=== PATIENT | female | born 2000 | race Caucasian/White ===

== ENCOUNTER 2022-03-15 16:03 | Emergency (ER) | payer MEDICAID, SELFPAY ==
[2022-03-15 16:33] VITALS: BP 107/50; PULSE 85; RESP 16; TEMP 36.8; O2SAT 98; BMI 20.9
--- NOTE | 2022-03-15 17:16 | ED.SKABFB ---
HPI - Skin/Abscess/Foreign Bdy General Chief complaint: Skin/Abscess/Foreign Body Stated complaint: lump on thumb Time Seen by Provider: 03/15/22 16:48 Source: patient Mode of arrival: ambulatory History of Present Illness HPI narrative: 21-year-old female with no significant past medical history presenting to the ED complaining of painful erythematous lesions to right thumb x a few days. Admits mother popped a lesion at home then 2 more appeared. Denies fever, chills, lesions to other area, trauma MD complaint: lesion Onset (ago): day(s) Related Data Previous Rx's Medication Instructions Recorded cephalexin 500 mg capsule 500 mg PO QID 7 Days #28 cap 03/15/22 valacyclovir 1 gram tablet 1,000 mg PO BID 7 Days #14 tab 03/15/22 (Valtrex) Allergies Allergy/AdvReac Type Severity Reaction Status Date / Time No Known Allergies Allergy Verified 03/15/22 16:36 Review of Systems Review of Systems: Constitutional: No Weight loss, No Fever, No Chills ENT/Mouth: No Ear Pain, No Nasal Congestion, No sore throat, No Rhinorrhea, No Swallowing Difficulty Cardiovascular: No Chest Pain, No SOB Respiratory: No Cough, No Sputum, No Wheezing Gastrointestinal: No Nausea, No Vomiting, No Diarrhea, No Constipation, No Abdominal pain Genitourinary: No Dysuria, No Urgency, No Flank Pain Musculoskeletal: No joint pain, No Myalgias, No Joint Swelling Skin: + Skin Lesions, No rash Neuro: No Weakness, No Numbness, No Paresthesias Yes all other systems are reviewed and are negative [facility] Past Medical History Attestation statement: The following information was validated with the patient. Social History Social History Advance Directives: No Advance Directives Information Provided: No Physical Exam Vital Signs: Vital Signs: Last Vital Signs Temp 98.3 F 03/15/22 16:33 Pulse 85 03/15/22 16:33 Resp 16 03/15/22 16:33 BP 107/50 L 03/15/22 16:33 Pulse Ox 98 03/15/22 16:33 BMI result Body Mass Index 20.9 Const: General: cooperative, healthy appearing and no acute distress Orientation/consciousness: patient oriented x3 Limitations: no limitations HEENT: Head: Yes normal to inspection and Yes atraumatic Ears: hearing grossly normal bilaterally General nose exam: Normal external nose present Face and sinus: Yes normal facial exam Eyes: General: appearance normal, both eyes and all related structures EOM: EOMs intact bilaterally Neck: Neck: Yes normal visual inspection and Yes no meningeal signs Resp: Effort & Inspection: normal respiratory effort and no respiratory distress Cardio: Rate: regular rate Peripheral pulses: radial pulses present Skin: Other: Please refer to imaging above. Three small fluid-filled vesicles noted to right thumb with surrounding erythema. Painful to touch. Neurovascular intact distally. Full range of motion intact. No induration, no crepitus Clear fluid expressed after one vesicle popped for culture Neuro: General: patient oriented x3, tone normal and no meningeal signs Gait exam (Neuro): Normal gait present Extrem: General: Yes normal to inspection MDM - Skin/Abscess/Foreign Bdy MDM Narrative Medical decision making narrative: 21-year-old female with no significant past medical history presenting to the ED complaining of painful erythematous lesions to right thumb x a few days. On exam vital signs stable, NAD/nontoxic appearing. Please refer to images above. Concern for herpetic mian with overlying cellulitits. Lower concern for abscess. Low concern for septic joint/arthritis Plan: Herpes culture, Keflex and Valtrex Medical Records Attestation: I reviewed the patient's medical records. Lab Data Attestation: I reviewed the patient's lab results. Discharge Plan Discharge Clinical Impression: Herpetic mian Patient Disposition: Home, Self-Care Additional Instructions: you likely have herpetic mian, and also an overlying infection, and also an overlying infection. Valtrex as antiviral medication, take as prescribed. Keflex as an antibiotic. Please avoid popping the area as this will likely cause spreading. If this red severely, you develop fever, lesions in other areas please return to the ED Prescriptions: New cephalexin 500 mg capsule 500 mg PO QID 7 Days Qty: 28 0RF valacyclovir [Valtrex] 1 gram tablet 1,000 mg PO BID 7 Days Qty: 14 0RF Referrals: Agustina Luo MD [Primary Care Provider] - 3 days
== END 2022-03-15 17:46 | disposition home or self-care (01) ==
PROVIDERS: Physician Assistant; Emergency Provider Emergency Medicine; PCP Pediatrics
DX: B00.89 Other herpesviral infection (principal)
CPT/HCPCS: 87255; 99283; 99284

== ENCOUNTER 2022-05-31 06:53 | Emergency (ER) | payer MEDICAID, SELFPAY ==
--- NOTE | ~2022-05-31 | XR_ITS ---
EXAMINATION: XR HAND, RIGHT CLINICAL INFORMATION: Right thumb pain, no injury COMPARISON: None TECHNIQUE: PA, lateral, and oblique views of the right hand. FINDINGS: The bones and soft tissues are normal. No fracture. Alignment is anatomic. Joint spaces are maintained. No erosions or soft tissue calcifications. XR/XR hand RT min 3V IMPRESSION: Normal right hand.
[2022-05-31 08:28] VITALS: BP 99/60; PULSE 82; RESP 12; TEMP 36.4; O2SAT 99; BMI 21.7
--- NOTE | 2022-05-31 09:23 | ED_ITS ---
HPI - Extremity Problem General Chief complaint: Extremity Problem Stated complaint: R thumb inj Time Seen by Provider: 05/31/22 08:37 Source: patient Mode of arrival: ambulatory Limitations: no limitations History of Present Illness HPI Narrative: 20-year-old female presents for 3 days of right thumb rash and pain. Pain is burning and feels like she is being poked with a needle. Patient was seen here in March 2022 for herpetic mian in the same area. 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 No fevers, no other symptoms, she feels well at baseline aside from the right thumb pain. No trauma, no injury. Related Data Previous Rx's Medication Instructions Recorded cephalexin 500 mg capsule 500 mg PO QID 7 days #28 caps 03/15/22 valacyclovir 1 gram tablet 1,000 mg PO BID 7 days #14 tabs 03/15/22 (Valtrex) cephalexin 500 mg capsule 500 mg PO QID 7 days #28 caps 05/31/22 ibuprofen 600 mg tablet 600 mg PO Q8H 14 days #42 tabs 05/31/22 valacyclovir 1 gram tablet 1,000 mg PO BID 7 days #14 tabs 05/31/22 Allergies Allergy/AdvReac Type Severity Reaction Status Date / Time No Known Allergies Allergy Verified 03/15/22 16:36 Review of Systems Constitutional: Constitutional: Denies body ache(s), Denies chills, Denies fatigue, Denies fever(s), Denies malaise and Denies weakness Eyes: Eyes: Denies diplopia Cardiovascular: Cardiovascular: Denies chest pain, Denies syncope, Denies leg edema, Denies lightheadedness, Denies Loss of Consciousness, Denies palpitations and Denies dyspnea Respiratory: Respiratory: Denies chest congestion, Denies cough and Denies dyspnea Gastrointestinal: Gastrointestinal: Denies abdominal pain, Denies hematochezia , Denies constipation, Denies diarrhea, Denies nausea and Denies vomiting Musculoskeletal: Musculoskeletal: Denies numbness and Denies tingling Comments: Right thumb pain Integumentary/Breasts: Skin/Breast: Denies pruritus, Reports rash and Reports skin pain Neurologic: Denies confusion, Denies syncope, Denies numbness, Denies tingling and Denies weakness Psychiatric: Psychiatric: Denies anxiety, Denies confusion and Denies depression Endocrine: Endocrine: Denies fatigue and Denies palpitations PMFSH Social History Social History Advance Directives: No Advance Directives Information Provided: Yes Physical Exam Vital Signs: Vital Signs: Last Vital Signs Temp 97.5 F 05/31/22 08:28 Pulse 82 05/31/22 08:28 Resp 12 05/31/22 08:28 BP 99/60 05/31/22 08:28 Pulse Ox 99 05/31/22 08:28 O2 Del Method 05/31/22 08:28 BMI result Body Mass Index 21.7 Const: General: No confusion Nutritional Appearance: well nourished Orientation/consciousness: No confusion Limitations: no limitations Eyes: Conjunctivae: conjunctivae normal Pupils: Equal, round and reactive pupils present EOM: EOMs intact bilaterally Neck: Neck: Yes full ROM, Yes no lymphadenopathy and Yes supple Resp: Effort & Inspection: normal respiratory effort and able to speak in co mplete sentences Auscultation: clear to auscultation bilaterally, no crac kles, no rales, no rhonchi and no wheezes Cardio: Rate: regular rate Rhythm: regular rhythm Heart sounds: S1 normal heart sound present and S2 normal heart sound present GI: Inspection: Yes normal to inspection Palpation (GI): Soft to palpation, nontender, no guarding and not rigid Percussion: Yes normal to percussion Auscultation: normal bowel sounds Skin: Other: vascicular rash to right thumb Rashes: rashes noted Neuro: General: No confusion Cranial nerves: Yes Equal, round and reactive pupils present Extrem: Right upper extremity: full ROM, normal capillary refill and Extremity exam: right hand Details: normal capillary refill, neuromotor exam normal, neurosensory exam normal, tendon exam normal, vascular exam Details: radial pulse present, ulnar pulse present and normal capillary refill, normal ROM of fingers and no swelling; no unusual warmth, no ecchymosis and no crepitus; no cyanosis and no edema Psych: Appearance: grossly normal Affect: normal affect Attitude: cooperative Thought process: Normal thought process present Course Course Course Narrative: 89-year-old female presents with 3 days of right thumb pain. Patient has intact right upper extremity pulses, sensation, motor strength. She can move all of her fingers, patient tested positive for herpes and was diagnosed with herpetic mian 4 months ago. She had an outbreak of herpes on her thumb at that time as well. Will treat with valacyclovir, Keflex, ibuprofen. Counseled patient to follow- up with primary care provider, as they may want to prescribe some Valtrex at the onset of symptoms. Patient verbalized agreement understanding of the plan Reevaluation(s) Reevaluation #1: FINDINGS: The bones and soft tissues are normal. No fracture. Alignment is anatomic. Joint spaces are maintained. No erosions or soft tissue calcifications.? XR/XR hand RT min 3V IMPRESSION: Normal right hand. Discharge Plan Discharge Clinical Impression: Recurrent herpetic mian Patient Disposition: Home, Self-Care Additional Instructions: You have a herpes infection of your right finger. I have prescribed an antibiotic, and antiviral, and ibuprofen for pain. Please take all 3 as prescribed. Please return if you have fevers, or any other new or concerning symptoms. Please call your primary care provider for follow-up appointment from today's emergency room visit, they may be able to prescribe a medication that will stop the herpes infection in your finger from getting worse when it 1st occurs Prescriptions: New valacyclovir 1 gram tablet 1,000 mg PO BID 7 Days Qty: 14 0RF cephalexin 500 mg capsule 500 mg PO QID 7 Days Qty: 28 0RF ibuprofen 600 mg tablet 600 mg PO Q8H 14 Days Qty: 42 0RF No Action cephalexin 500 mg capsule 500 mg PO QID 7 Days Qty: 28 0RF valacyclovir [Valtrex] 1 gram tablet 1,000 mg PO BID 7 Days Qty: 14 0RF Stand Alone Forms: Work/School Release Interventions: ED Discharge Assessment Last Done: 05/31/22 10:23 Discharge Date/Time: 05/31/22 10:24
== END 2022-05-31 10:24 | disposition home or self-care (01) ==
PROVIDERS: Emergency Provider Emergency Medicine; PCP Pediatrics
DX: B00.89 Other herpesviral infection (principal); M79.641 Pain in right hand
CPT/HCPCS: 73130; 99283

== ENCOUNTER 2023-07-11 12:32 | Outpatient (REF) | payer MEDICAID, SELFPAY ==
[2023-07-12 08:19] LABS: ~Hepatitis C Antibody Nonreactive (Nonreactive)
[2023-07-13 08:26] LABS: Syphilis Screen Nonreactive (Nonreactive)
== END 2023-07-11 12:33 | disposition home or self-care (01) ==
LOC: HO.HHCL 12:32
PROVIDERS: Visit Provider Nurse Practitioner Family
DX: Z11.3 Encounter for screening for infections with a predominantly sexual mode of transmission (principal)
CPT/HCPCS: 36415; 86780; 86803

== ENCOUNTER 2023-08-13 17:38 | Outpatient (REF) | payer MEDICAID, SELFPAY ==
[2023-08-14 11:51] LABS: CT PCR NOT DETECTED (Not Detect.); NG PCR NOT DETECTED (Not Detect.)
[2023-08-14 12:08] LABS: BV Int Neg Control Negative (Negative); BV Int Pos Control Positive (Positive)
== END 2023-08-13 17:39 | disposition home or self-care (01) ==
LOC: HO.HHCLNP 17:38
PROVIDERS: Visit Provider Emergency Medicine
DX: N89.8 Other specified noninflammatory disorders of vagina (principal)
CPT/HCPCS: 0353U; 87086; 87088; 87186; 87480; 87510; 87660

== ENCOUNTER 2023-08-17 17:37 | Outpatient (REF) | payer MEDICAID, SELFPAY | END 2023-08-17 17:38 | disposition home or self-care (01) | LOC: HO.HHCLNP 17:37 | PROVIDERS: Visit Provider Student in an Organized Health Care Education/Training Program | DX: N89.8 Other specified noninflammatory disorders of vagina (principal) | CPT/HCPCS: 0353U; 87480; 87510; 87660 ==

== ENCOUNTER 2023-10-24 18:57 | Outpatient (REF) | payer MEDICAID, SELFPAY ==
[2023-10-25 02:27] LABS: CT PCR NOT DETECTED (Not Detect.); NG PCR NOT DETECTED (Not Detect.)
== END 2023-10-24 18:58 | disposition home or self-care (01) ==
LOC: HO.HHCLNP 18:57
PROVIDERS: Visit Provider Nurse Practitioner Family
DX: N89.8 Other specified noninflammatory disorders of vagina (principal)
CPT/HCPCS: 0353U

== ENCOUNTER 2023-11-29 11:46 | Outpatient (REF) | payer MEDICAID, SELFPAY ==
[2023-11-29 13:29] LABS: Hematocrit 37.5 % (37.0-47.0); Hemoglobin 12.1 g/dl (12.0-16.0); Mean Corpuscular HGB Conc 32.3 g/dl (31.0-35.0); Mean Corpuscular Hemoglobin 28.1 pg (27.0-33.0); Mean Platelet Volume 9.7 fL (9.4-12.3); Platelet Count 312 X10*3/uL (160-400); Red Blood Count 4.31 X10*6/uL (4.20-5.50); Red Cell Distribution Width 12.2 % (11.0-16.0); White Blood Count 9.6 X10*3/uL (4.8-10.8)
[2023-11-29 13:50] LABS: Alanine Aminotransferase 12 U/L (0-31); Albumin Level 4.7 g/dL (3.5-5.0); Alkaline Phosphatase 69 U/L (39-117); Anion Gap 13 (12-20); Aspartate Amino Transferase 19 U/L (5-31); Bilirubin Total 0.9 mg/dL (0.0-1.0); Blood Urea Nitrogen 10 mg/dL (9-16); Calcium 10.2 mg/dL (8.4-10.2); Carbon Dioxide 26 mmol/L (22-29); Chloride 102 mmol/L (96-108); Cholesterol 133 mg/dL (<200); Estimated Glomerular Filt Rate > 60; Glucose Random 104 mg/dL (60-115); HDL Cholesterol 49 mg/dL (>40); LDL Cholesterol Calculated 71 mg/dL (<100); Potassium 3.8 mmol/L (3.3-5.1); Sodium 137 mmol/L (135-145); Total Protein 8.6 g/dL (6.5-8.0); Triglycerides 68 mg/dL (<150)
[2023-11-29 13:57] LABS: Estimated Average Glucose 94 mg/dL; Hemoglobin A1c % 4.9 % (<6.0)
[2023-11-29 14:06] LABS: TSH reflex Free T4 0.64 uIU/mL (0.32-4.0)
[2023-11-30 03:35] LABS: Syphilis Screen Nonreactive (Nonreactive)
[2023-11-30 04:08] LABS: HBc Num1 0.11 S/CO (0.00-0.79); HBsAGNum1 0.32 S/CO (0.00-0.99); HIV AB/AG Nonreactive (Nonreactive); HIV Num 1 0.06 S/CO (0.00-0.99); Hepatitis B Core Antibody Nonreactive (Nonreactive); Hepatitis B Surface Antigen Negative (Negative); ~HepC Num1 0.14 S/CO (0.00-0.79); ~Hepatitis B Surface Antibody REACTIVE (Nonreactive); ~Hepatitis C Antibody Nonreactive (Nonreactive)
[2023-11-30 14:39] LABS: C. trachomatis RNA TMA NOT DETECTED (NOT DETECTED); N. gonorrhoeae RNA TMA NOT DETECTED (NOT DETECTED)
== END 2023-11-29 11:47 | disposition home or self-care (01) ==
LOC: HO.HHCL 11:46
PROVIDERS: Visit Provider Student in an Organized Health Care Education/Training Program
DX: Z00.00 Encounter for general adult medical examination without abnormal findings (principal); Z11.4 Encounter for screening for human immunodeficiency virus [HIV]; N76.0 Acute vaginitis; B96.89 Other specified bacterial agents as the cause of diseases classified elsewhere
CPT/HCPCS: 36415; 80053; 80061; 81513; 83036; 84443; 85027; 86704; 86706; 86780; 86803; 87340; 87389; 87491; 87591

== ENCOUNTER 2023-12-01 15:18 | Emergency (ER) | payer MEDICAID, SELFPAY ==
--- NOTE | ~2023-12-01 | CT_ITS ---
EXAMINATION: CT ABDOMEN AND PELVIS WITH CONTRAST CLINICAL INFORMATION: Nausea, vomiting and diffuse abdominal tenderness COMPARISON: None available. TECHNIQUE: Multidetector volumetric images were obtained from the superior aspect of the liver through the pubic symphysis following administration 85 mL of Omnipaque 350 intravenous contrast. Sagittal and coronal reformatted images were obtained on the technologist's workstation. Oral contrast: No This CT examination was performed using dose optimization techniques as appropriate, variously including the following: *Automated exposure control *Adjustment of mA and/or kV according to patient size (this includes techniques or standardized protocols for targeted exams where dose is matched to indication/reason for exam; i.e. extremities or head) *Use of iterative reconstruction technique DLP: 295 mGy-cm FINDINGS: LUNG BASES: The visualized lung bases are unremarkable. LIVER, GALLBLADDER, AND BILIARY TREE: The liver is enlarged at 19 cm in cephalocaudad dimension. No focal hepatic lesion or biliary ductal dilatation is present. The gallbladder is unremarkable with no evidence of radiopaque gallstones, gallbladder wall thickening, or obvious pericholecystic inflammatory changes. PANCREAS: Unremarkable. SPLEEN: Unremarkable. ADRENAL GLANDS: Unremarkable. KIDNEYS AND URETERS: The right kidney is larger than the left measuring 11.4 as opposed to 10.2 cm. In addition, there is marked heterogeneity of the nephrogram with areas of hypoattenuation consistent with acute bacterial nephritis. No nephrocalcinosis. No renal calculi. No hydronephrosis, hydroureter, or calculi seen. No perinephric stranding. BLADDER: Empty but unremarkable. GASTROINTESTINAL TRACT: The small and large bowel are unremarkable. The appendix is unremarkable. ABDOMINAL WALL: No significant hernia is appreciated. LYMPH NODES: Normal. VASCULAR: Unremarkable. PELVIC VISCERA: The uterus and adnexa are unremarkable. OSSEOUS STRUCTURES: Unremarkable. CT/CT abdomen pelvis w IV con IMPRESSION: 1. Acute bacterial nephritis right kidney. 2. Incidental note made of mild hepatomegaly. Fleischner guidelines were followed. This critical result was discussed with RADHA Steel at 6:24pm and it was ascertained that the content and urgency of the report was understood at the time of direct communication.
[2023-12-01 15:30] VITALS: BP 128/81; PULSE 95; RESP 18; TEMP 36.6; O2SAT 100; BMI 21.2
--- NOTE | 2023-12-01 15:30 | ED.GENADULT ---
HPI - General Adult General Chief complaint: General Medical Stated complaint: vomiting,shaking Time Seen by Provider: 12/01/23 15:40 Source: patient Mode of arrival: ambulatory Limitations: no limitations History of Present Illness HPI narrative: patient is a 23-year-old female who presents emergency department for evaluation of reported cold sweats, chills, nausea and vomiting for 5 days. She does endorse that approximately 3 weeks ago she tested positive for COVID - 19, and afterwards she decided that she would stop smoking marijuana. She reports that she quit 5 days ago as well, the same day that her symptoms started. and since then she has been feeling shaky, and states that she is vomiting every time after she eats. She expresses concern about withdrawal from marijuana. She denies Abdominal pain, chest pain, shortness of breath, URI symptoms, genitourinary symptoms, denies possibility of , denies any recent sick contacts. Related Data Previous Rx's Medication Instructions Recorded cephalexin 500 mg capsule 500 mg PO QID 7 days #28 caps 03/15/22 valacyclovir 1 gram tablet 1,000 mg PO BID 7 days #14 tabs 03/15/22 (Valtrex) cephalexin 500 mg capsule 500 mg PO QID 7 days #28 caps 05/31/22 ibuprofen 600 mg tablet 600 mg PO Q8H 14 days #42 tabs 05/31/22 valacyclovir 1 gram tablet 1,000 mg PO BID 7 days #14 tabs 05/31/22 ciprofloxacin HCl 500 mg tablet 500 mg PO BID #14 tabs 12/01/23 ondansetron 4 mg disintegrating 4 mg PO Q8H PRN nausea and 12/01/23 tablet vomiting #10 tabs Allergies Allergy/AdvReac Type Severity Reaction Status Date / Time No Known Allergies Allergy Verified 08/28/23 12:26 [facility] Social History Social History (System 08/28/23 @ 12:26 by Unique Ricks) Advance Directives: No Advance Directives Information Provided: No Physical Exam ED Vital Signs: Vital Signs - 24 hr 12/01/23 15:30 12/01/23 16:41 Temperature 97.8 F 98 F Pulse Rate 95 90 Respiratory Rate 18 19 Blood Pressure 128/81 126/78 Pulse Oximetry 100 99 Oxygen Delivery Method Room Air Room Air BMI result Body Mass Index 21.2 Appearance: Alert.?Oriented to person, place and time. No acute distress.?Normal affect. Eyes: Pupils equal, round and reactive to light.? ENT: Pharynx normal.?? Neck: Normal inspection.? Neck supple.?? CVS: Heart sounds normal. Normal heart rate and rhythm.? Pulses normal.?? Respiratory: No respiratory distress.? Lung sounds clear to auscultation bilaterally?? Abdomen: Soft with diffuse tenderness upon palpation, no rigidity, no guarding. Normoactive bowel sounds. No pulsatile mass.?? Skin: Skin warm and dry.? Normal skin color.? Extremities: No lower extremity edema.? Neuro: Moves all extremities spontaneously. Sensation intact bilaterally. No focal neuro deficits. Ambulates with normal steady gait. Course Course Course Narrative: This is a rapid medical exam: Additional HPI, ROS, PE not included below will be deferred to primary provider. Patient is a 23-year-old female presenting to the ED with complaint of sweats, chills, vomiting for 5 days. Reports ten pound weight loss. States that she tested positive for Covid 3 weeks ago, and decided at that time to stop using marijuana. Feels her symptoms are due to withdrawal from marijuana. Plan: viral swabs, UA, labs Reevaluation(s) Reevaluation #1: urinalysis consistent urinary tract infection, Patient received Rocephin IV while in the emergency department, CT reveals findings consistent with acute pyelonephritis, consulted with radiologist Dr. Summers who called with results. No evidence of sepsis. No persistent fever, at this time she is tolerating oral intake, feel that she is stable for discharge home and strict return precautions and sent prescription for antibiotics to pharmacy. Time: 18:26 Medications Administered Discontinued Medications Generic Name Dose Route Start Last Admin Trade Name Freq PRN Reason Stop Dose Admin Sodium Chloride 1,000 mls @ 999 mls/hr 12/01/23 16:45 12/01/23 18:31 Ns IV 12/01/23 17:45 Infused .Q1H1M NICK Infusion Ceftriaxone Sodium 1 gm/ 50 mls @ 100 mls/hr 12/01/23 17:29 12/01/23 18:31 Sodium Chloride IV 12/01/23 17:58 Infused ONCE ONE Infusion Iohexol 100 ml 12/01/23 17:32 12/01/23 17:32 Iohexol 350 Mg/Ml 100 Ml Infus..Btl IV 12/01/23 17:33 85 ml ONCE ONE Administration Ondansetron HCl 4 mg 12/01/23 16:37 12/01/23 17:01 Ondansetron Hcl 4 Mg/2 Ml Vial IVPUSH 12/01/23 16:38 4 mg ONCE ONE Administration Medical Decision Making Medical Decision Making [facility] Narrative: patient is a 23-year-old female who presents emergency department for evaluation of nausea vomiting chills and shakiness that she is attributing to withdrawal from marijuana. Overall she appears well, she reports diffuse body aches, her abdominal examination reveals diffuse tenderness upon palpation, no rigidity, no guarding, no rebound tenderness. No CVA tendern. Will obtain CBC to evaluate for leukocytosis/ anemia, CMP and lipase to evaluate for abnormal electrolytes /abnormal renal function/ abnormal hepatic/biliary function, and Urinalysis /hCG. Patient received 1 L normal saline IV fluid, Zofran IV for nausea and plan to re-evaluate. Differential Diagnosis Differential Diagnoses: The differential diagnosis associated with the presentation includes ( Gastroenteritis, urinary tract infection, pyelonephritis, viral illness. Suspect less likely cholecystitis, pancreatitis, colitis, obstruction, diverticulitis, appendicitis.) Admission/Observation Consideration of admission/observation: Escalation of care including admission/observation considered ( See narrative above and course narrative for further detail) Lab Data [facility] Lab Attestation statement: I reviewed the patient's lab results. CBC is without leukocytosis. CMP is unremarkable. Lipase is normal. HCG negative. COVID and influenza are negative. 12/01/23 15:39 12/01/23 15:39 Labs: Lab Results 12/01/23 12/01/23 12/01/23 Range/Units 15:39 16:51 17:06 WBC 7.8 (4.8-10.8) X10*3/uL RBC 4.27 (4.20-5.50) X10*6/uL Hgb 11.8 L (12.0-16.0) g/dl Hct 37.1 (37.0-47.0) % MCV 86.9 (80.0-98.0) fL MCH 27.6 (27.0-33.0) pg MCHC 31.8 (31.0-35.0) g/dl RDW 12.0 (11.0-16.0) % Plt Count 253 (160-400) X10*3/uL MPV 9.3 L (9.4-12.3) fL Immature Gran % (Auto) 0.3 (0.0-0.4) % Neut % (Auto) 68.8 (45-73) % Lymph % (Auto) 14.8 L (20-40) % [place] % (Auto) 16.0 H (2-11) % Eos % (Auto) 0.0 (0-4) % Baso % (Auto) 0.1 (0-2) % Lymph # (Auto) 1.2 (1.2-4.9) X10*3/uL [place] # (Auto) 1.2 (0.1-1.2) X10*3/uL Eos # (Auto) 0.0 (0.0-0.4) X10*3/uL Baso # (Auto) 0.0 (0.0-0.2) X10*3/uL Abs Immat Gran (auto) 0.02 (0.00-0.03) X10*3/uL Absolute Neuts (auto) 5.4 (2.0-8.3) x10*3/uL Absolute Nucleated RBC 0.000 (0.0-0.012) X10*3/uL Nucleated RBC % (auto) 0.0 (0.0-0.2) /100WBC Sodium 136 (135-145) mmol/L Potassium 3.8 (3.3-5.1) mmol/L Chloride 100 (96-108) mmol/L Carbon Dioxide 26 (22-29) mmol/L Anion Gap 14 (12-20) BUN 6 L (9-16) mg/dL Creatinine 0.92 (0.5-1.4) mg/dL Estim Creat Clear Calc 72.9 Estimated GFR > 60 Random Glucose 115 (60-115) mg/dL Calcium 10.0 (8.4-10.2) mg/dL Total Bilirubin 0.4 (0.0-1.0) mg/dL AST 17 (5-31) U/L ALT 11 (0-31) U/L Alkaline Phosphatase 62 (39-117) U/L Total Protein 8.9 H (6.5-8.0) g/dL Albumin 4.6 (3.5-5.0) g/dL Lipase 9 (8-78) U/L Beta HCG, Quant < 2 mIU/mL Urine Color Yellow Urine Appearance Turbid Urine pH 6.0 (5.0-9.0) Ur Specific [place] 1.015 (1.005-1.025) Urine Protein 100 (2+) H (Neg-Trace) mg/dL Urine Glucose (UA) Negative (Negative) mg/dL Urine Ketones Trace (Negative) mg/dL Urine Blood Small (1+) H (Negative) Urine Nitrite Positive H (Negative) Ur Leukocyte Esterase Large (3+) H (Negative) Urine RBC 0-2 (0-2) /HPF Urine WBC >50 H (0-5) /HPF Ur Squamous Epith Cells 6-10 (0-2) /HPF Urine Bacteria 4+ (None Seen) Hyaline Casts 0-2 (0-2) /LPF Urine Opiates Screen Not Detected (Not Detect) Urine Fentanyl Screen Not Detected (Not Detect) Ur Barbiturates Screen Not Detected (Not Detect) Ur Phencyclidine Scrn Not Detected (Not Detect) Ur Amphetamines Screen Not Detected (Not Detect) U Benzodiazepines Scrn Not Detected (Not Detect) Urine Cocaine Screen Not Detected (Not Detect) U Marijuana (THC) Screen POSITIVE H (Not Detect) COVID-19 (FREDIS) Negative (Negative) COVID-19 Clin Com See Note Influenza Type A ([place]ETT) Negative (Negative) Influenza Type B ([place]) Negative (Negative) Influenza A & B Note See Note Independent Interpretation I performed an independent interpretation of an: CT Scan Radiology Impression Discussion of test interpretation with radiology: I discussed test interpretation with the radiologist and I have reviewed the radiologist's reading. Radiologist Impression: CT/CT abdomen pelvis w IV con IMPRESSION: 1. Acute bacterial nephritis right kidney. 2. Incidental note made of mild hepatomegaly. Independent Historian Clinical information obtained from an independent historian. History obtained from or confirmed by: Other ( Friend present who confirms history) Discharge Plan Discharge Clinical Impression: Pyelonephritis Patient Disposition: Home, Self-Care Instructions: Urinary Tract Infection in Women (ED), Kidney Infection (ED) Additional Instructions: Please be sure to stay well hydrated and drink plenty of fluids. Eat small frequent meals. Introduce a bland diet including crackers, bananas, rice, soup, toast, and boiled vegetables. This may progress to plain baked or boiled chicken or turkey. Avoid dairy products or foods high in fat or grease. Complete the entire course of antibiotics as prescribed for urinary tract infection. - Please be sure to refrain from any strenuous activity or exercise while taking antibiotic. If you develop sudden pain to the back of your foot/heel, ankle pain, while taking this medication or soon after then you should be re-evaluated. Return back to emergency department any new or worsening symptoms or concerns. Including, if you are unable to tolerate taking your antibiotics due to vomiting then you should be re-evaluated. Prescriptions: New ondansetron 4 mg tablet,disintegrating 4 mg PO Q8H PRN (Reason: nausea and vomiting) Qty: 10 0RF ciprofloxacin HCl 500 mg tablet 500 mg PO BID Qty: 14 0RF No Action valacyclovir 1 gram tablet 1,000 mg PO BID 7 Days Qty: 14 0RF cephalexin 500 mg capsule 500 mg PO QID 7 Days Qty: 28 0RF ibuprofen 600 mg tablet 600 mg PO Q8H 14 Days Qty: 42 0RF cephalexin 500 mg capsule 500 mg PO QID 7 Days Qty: 28 0RF valacyclovir [Valtrex] 1 gram tablet 1,000 mg PO BID 7 Days Qty: 14 0RF Referrals: [facility] [Primary Care Provider] -
[2023-12-01 15:43] LABS: MANUAL DIFF FLAG NO
[2023-12-01 15:45] LABS: Basophils Percent Auto 0.1 % (0-2); Hematocrit 37.1 % (37.0-47.0); Hemoglobin 11.8 g/dl (12.0-16.0); Imm Gran Abs Auto 0.02 X10*3/uL (0.00-0.03); Imm Gran Pct Auto 0.3 % (0.0-0.4); Lymphocytes Absolute Auto 1.2 X10*3/uL (1.2-4.9); Lymphocytes Percent Auto 14.8 % (20-40); Mean Corpuscular HGB Conc 31.8 g/dl (31.0-35.0); Mean Corpuscular Hemoglobin 27.6 pg (27.0-33.0); Mean Corpuscular Volume 86.9 fL (80.0-98.0); Mean Platelet Volume 9.3 fL (9.4-12.3); Monocytes Absolute Auto 1.2 X10*3/uL (0.1-1.2); Neutrophils Absolute Auto 5.4 x10*3/uL (2.0-8.3); Neutrophils Percent Auto 68.8 % (45-73); Platelet Count 253 X10*3/uL (160-400); Red Blood Count 4.27 X10*6/uL (4.20-5.50); White Blood Count 7.8 X10*3/uL (4.8-10.8)
[2023-12-01 16:00] LABS: COVID-19 Test Negative (Negative); IDNOW Serial# 6674DD1D
[2023-12-01 16:01] LABS: IDNOW Serial# 08D9AD1C; Influenza A Negative (Negative); Influenza B2 Negative (Negative)
[2023-12-01 16:07] LABS: Alanine Aminotransferase 11 U/L (0-31); Albumin Level 4.6 g/dL (3.5-5.0); Alkaline Phosphatase 62 U/L (39-117); Anion Gap 14 (12-20); Aspartate Amino Transferase 17 U/L (5-31); Bilirubin Total 0.4 mg/dL (0.0-1.0); Blood Urea Nitrogen 6 mg/dL (9-16); Carbon Dioxide 26 mmol/L (22-29); Chloride 100 mmol/L (96-108); Creatinine Clr Calc Pharmacy 72.9; Estimated Glomerular Filt Rate > 60; Glucose Random 115 mg/dL (60-115); Potassium 3.8 mmol/L (3.3-5.1); Sodium 136 mmol/L (135-145); Total Protein 8.9 g/dL (6.5-8.0)
[2023-12-01 16:08] LABS: HCG Quantitative < 2 mIU/mL
[2023-12-01 16:41] VITALS: BP 126/78; PULSE 90; RESP 19; TEMP 36.6; O2SAT 99
[2023-12-01 16:51] LABS: Lipase 9 U/L (8-78)
[2023-12-01] MEDS: ondansetron HCL 4 MG/2 ML VIAL IVPUSH (17:01)
[2023-12-01] MEDS: 0.9 % Sodium Chloride 1,000 ML 999 ML IV (17:02)
[2023-12-01 17:14] LABS: Appearance Urine Turbid; Color Urine Yellow; Glucose Urine UA Negative (Negative); Leukocyte Esterase Urine Large (3+) (Negative); Nitrite Urine Positive (Negative); Specific Gravity - Urine 1.015 (1.005-1.025); UMIC TRIGGER UACC YES; Urine Blood Small (1+) (Negative); Urine Ketones Trace mg/dL (Negative); Urine Protein 100 (2+) mg/dL (Neg-Trace)
[2023-12-01 17:23] LABS: Bacteria Urine 4+ (None Seen); Hyaline Casts Urine 0-2 /LPF (0-2); RBC Urine 0-2 /HPF (0-2); UACC Culture Trigger YES; WBC Urine >50 /HPF (0-5)
[2023-12-01 17:30] LABS: Amphetamine Screen Urine Not Detected (Not Detect); Barbiturates, Urine Not Detected (Not Detect); Benzodiazepines Screen Urine Not Detected (Not Detect); Cannabinoid Screen Urine POSITIVE (Not Detect); Cocaine Screen Urine Not Detected (Not Detect); Fentanyl, urine Not Detected (Not Detect); Opiate Screen Urine Not Detected (Not Detect); Phencyclidine Screen Urine Not Detected (Not Detect)
[2023-12-01] MEDS: iohexoL 350 MG/ML 100 ML INFUS..BTL IV (17:32)
[2023-12-01] MEDS: cefTRIAXone sodium 1 GM in 0.9 % Sodium Chloride 50 ML IV (17:50)
--- NOTE | 2023-12-01 18:19 | PC.NURSE ---
IV antibiotics infusing, PO challenging at this time
== END 2023-12-01 18:37 | disposition home or self-care (01) ==
PROVIDERS: Nurse Practitioner Family; Registered Nurse Emergency; Emergency Provider Emergency Medicine Emergency Medical Services
DX: N10 Acute pyelonephritis (principal); Z11.52 Encounter for screening for COVID-19
CPT/HCPCS: 74177; 80053; 80307; 81001; 83690; 84702; 85025; 87086; 87088; 87186; 87502; 87635; 96361; 96365; 96375; 99283; 99284; J0696; J2405; Q9967

== ENCOUNTER 2023-12-26 15:58 | Outpatient (REF) | payer MEDICAID, SELFPAY ==
[2023-12-26 17:56] LABS: Estimated Glomerular Filt Rate > 60
[2023-12-27 03:47] LABS: Syphilis Screen Nonreactive (Nonreactive)
[2023-12-27 04:10] LABS: HBS Num1 234.11 mIU/mL (0-7.99); ~HepC Num1 0.15 S/CO (0.00-0.79); ~Hepatitis B Surface Antibody REACTIVE (Nonreactive); ~Hepatitis C Antibody Nonreactive (Nonreactive)
[2023-12-28 13:28] LABS: HIV RNA PCR Qn Copies NOT DETECTED copies/mL (NOT DETECTED); HIV RNA PCR Qn Log Copies NOT DETECTED (NOT DETECTED)
== END 2023-12-26 15:59 | disposition home or self-care (01) ==
LOC: HO.HHCL 15:58
PROVIDERS: Visit Provider Student in an Organized Health Care Education/Training Program
DX: Z11.3 Encounter for screening for infections with a predominantly sexual mode of transmission (principal)
CPT/HCPCS: 36415; 82565; 86706; 86780; 86803; 87536

== ENCOUNTER 2024-01-03 14:04 | Outpatient (REF) | payer MEDICAID, SELFPAY ==
[2024-01-05 14:28] LABS: HIV RNA PCR Qn Copies NOT DETECTED copies/mL (NOT DETECTED); HIV RNA PCR Qn Log Copies NOT DETECTED (NOT DETECTED)
== END 2024-01-03 14:05 | disposition home or self-care (01) ==
LOC: HO.HHCL 14:04
PROVIDERS: Visit Provider Student in an Organized Health Care Education/Training Program
DX: Z79.899 Other long term (current) drug therapy (principal)
CPT/HCPCS: 36415; 87536

== ENCOUNTER 2024-01-09 18:06 | Emergency (ER) | payer MEDICAID, SELFPAY ==
[2024-01-09 18:12] VITALS: BP 125/78; PULSE 87; RESP 18; TEMP 36.8; O2SAT 100; BMI 21.7
--- NOTE | 2024-01-09 18:13 | ED_ITS ---
HPI - General Adult General Chief complaint: Urogenital-Female Stated complaint: 'feeling weird', painful urination Time Seen by Provider: 01/09/24 19:23 Related Data Previous Rx's Medication Instructions Recorded cephalexin 500 mg capsule 500 mg PO QID 7 days #28 caps 03/15/22 valacyclovir 1 gram tablet 1,000 mg PO BID 7 days #14 tabs 03/15/22 (Valtrex) cephalexin 500 mg capsule 500 mg PO QID 7 days #28 caps 05/31/22 ibuprofen 600 mg tablet 600 mg PO Q8H 14 days #42 tabs 05/31/22 valacyclovir 1 gram tablet 1,000 mg PO BID 7 days #14 tabs 05/31/22 ciprofloxacin HCl 500 mg tablet 500 mg PO BID #14 tabs 12/01/23 ondansetron 4 mg disintegrating 4 mg PO Q8H PRN nausea and 12/01/23 tablet vomiting #10 tabs doxycycline hyclate 100 mg capsule 100 mg PO BID 7 days #14 caps 01/09/24 Allergies Allergy/AdvReac Type Severity Reaction Status Date / Time No Known Allergies Allergy Verified 08/28/23 12:26 [facility] Social History Social History (System 08/28/23 @ 12:26 by Unique Ricks) Advance Directives: No Advance Directives Information Provided: No Physical Exam ED Vital Signs: Vital Signs - 24 hr 01/09/24 18:12 Temperature 98.2 F Pulse Rate 87 Respiratory Rate 18 Blood Pressure 125/78 Pulse Oximetry 100 Oxygen Delivery Method Room Air BMI result Body Mass Index 21.7 Course Course Course Narrative: This is a rapid medical exam: Additional HPI, ROS, PE not included below will be deferred to primary provider. Patient is a 23-year-old female presenting to the ED with complaint of painful urination since last night. States she completed a course of antibiotics for a UTI 2 weeks ago. Had felt better until symptoms returned last night. States she was tested for STIs at that time and everything was negative, denies concern for STIs at this time. She is currently on antibiotics for strep throat. Plan: UA, urine Medications Administered Discontinued Medications Generic Name Dose Route Start Last Admin Trade Name Freq PRN Reason Stop Dose Admin Ceftriaxone Sodium 500 mg/ 0 mg 01/09/24 19:44 01/09/24 20:04 Lidocaine HCl 1 ml IM 01/09/24 19:45 350 kit ONCE ONE Administration Doxycycline Monohydrate 100 mg 01/09/24 19:44 01/09/24 20:04 Doxycycline Monohydrate 100 Mg Capsule PO 01/09/24 19:45 100 mg ONCE ONE Administration Fluconazole 150 mg 01/09/24 19:44 01/09/24 20:04 Fluconazole 150 Mg Tablet PO 01/09/24 19:45 150 mg ONCE ONE Administration Medical Decision Making Lab Data Labs: Lab Results 01/09/24 Range/Units 18:26 Urine Color Yellow Urine Appearance Clear Urine pH 6.5 (5.0-9.0) Ur Specific [place] 1.020 (1.005-1.025) Urine Protein Negative (Neg-Trace) mg/dL Urine Glucose (UA) Negative (Negative) mg/dL Urine Ketones Negative (Negative) mg/dL Urine Blood Negative (Negative) Urine Nitrite Negative (Negative) Ur Leukocyte Esterase Small (1+) H (Negative) Urine RBC 0-2 (0-2) /HPF Urine WBC 6-10 H (0-5) /HPF Ur Squamous Epith Cells 11-20 (0-2) /HPF Urine Bacteria 2+ (None Seen) Hyaline Casts 0-2 (0-2) /LPF Urine Test NEGATIVE (NEGATIVE) Discharge Plan Discharge Clinical Impression: Vaginitis, At risk for sexually transmitted disease due to unprotected sex Patient Disposition: Home, Self-Care Instructions: Sexually Transmitted Diseases (ED), Safe Sex Practices (ED), Vaginal Discharge (ED) Prescriptions: New doxycycline hyclate 100 mg capsule 100 mg PO BID 7 Days Qty: 14 0RF No Action valacyclovir 1 gram tablet 1,000 mg PO BID 7 Days Qty: 14 0RF cephalexin 500 mg capsule 500 mg PO QID 7 Days Qty: 28 0RF ibuprofen 600 mg tablet 600 mg PO Q8H 14 Days Qty: 42 0RF cephalexin 500 mg capsule 500 mg PO QID 7 Days Qty: 28 0RF valacyclovir [Valtrex] 1 gram tablet 1,000 mg PO BID 7 Days Qty: 14 0RF ondansetron 4 mg tablet,disintegrating 4 mg PO Q8H PRN (Reason: nausea and vomiting) Qty: 10 0RF ciprofloxacin HCl 500 mg tablet 500 mg PO BID Qty: 14 0RF [place] [facility] [place] [facility] [place] Group] [facility] [[facility]] Stand Alone Forms: Work/School Release Interventions: ED Discharge Assessment Last Done: 01/09/24 20:17 Discharge Date/Time: 01/09/24 20:00 Print Language: Angolan
[2024-01-09 18:42] LABS: Appearance Urine Clear; Color Urine Yellow; Glucose Urine UA Negative (Negative); Leukocyte Esterase Urine Small (1+) (Negative); Nitrite Urine Negative (Negative); PH 6.5 (5.0-9.0); UMIC TRIGGER UACC YES; Urine Blood Negative (Negative); Urine Ketones Negative (Negative); Urine Protein Negative (Neg-Trace)
[2024-01-09 18:44] LABS: UPreg QC Valid YES; Urine Pregnancy NEGATIVE (NEGATIVE)
[2024-01-09 19:20] LABS: Bacteria Urine 2+ (None Seen); Hyaline Casts Urine 0-2 /LPF (0-2); RBC Urine 0-2 /HPF (0-2); UACC Culture Trigger YES
[2024-01-09] MEDS: cefTRIAXone sodium 500 MG, Lidocaine HCl 1 % MPF 1 ML IM (20:04)
[2024-01-09] MEDS: Fluconazole 150 MG TABLET PO (20:04)
[2024-01-09] MEDS: Doxycycline Monohydrate 100 MG CAPSULE PO (20:04)
== END 2024-01-09 20:00 | disposition home or self-care (01) ==
PROVIDERS: Registered Nurse Emergency; Emergency Provider Emergency Medicine Emergency Medical Services
DX: N76.0 Acute vaginitis (principal); Z72.51 High risk heterosexual behavior
CPT/HCPCS: 81001; 81003; 81025; 87086; 87147; 96372; 99282; 99284; J0696

== ENCOUNTER 2024-01-30 19:20 | Outpatient (REF) | payer MEDICAID, SELFPAY ==
[2024-02-06 13:53] LABS: C. trachomatis RNA TMA NOT DETECTED (NOT DETECTED); N. gonorrhoeae RNA TMA NOT DETECTED (NOT DETECTED); Trichomonas (NAAT) NOT DETECTED (NOT DETECTED)
== END 2024-01-30 19:21 | disposition home or self-care (01) ==
LOC: HO.HHCLNP 19:20
PROVIDERS: Visit Provider Advanced Practice Midwife
DX: Z12.4 Encounter for screening for malignant neoplasm of cervix (principal); Z11.3 Encounter for screening for infections with a predominantly sexual mode of transmission; R30.0 Dysuria
CPT/HCPCS: 36415; 87086; 87088; 87186; 87491; 87591; 87661; 88142

== ENCOUNTER 2024-05-25 11:17 | Emergency (ER) | payer MEDICAID, SELFPAY ==
[2024-05-25 11:19] VITALS: BP 114/50; PULSE 96; RESP 20; TEMP 36.3; O2SAT 97; BMI 23.0
--- NOTE | 2024-05-25 11:22 | ED.FEMALEGU ---
HPI - Female Genitourinary General Chief complaint: Urogenital-Female Stated complaint: Pain when urinating Time Seen by Provider: 05/25/24 11:29 Source: patient Mode of arrival: ambulatory Limitations: no limitations History of Present Illness ED Provider: maryse BRITO Narrative: Patient is a 23-year-old female presenting to the ED with complaint of dysuria and frequency for the past 3 days. Denies back or flank pain. Denies fevers. Denies nausea or vomiting. Reports that since her first depo-provera shot 3 months ago she has had continued vaginal bleeding which ended 2-3 days ago. Denies concern for STIs, stating that she has not been sexually active for the past 3 months due to bleeding. MD elicited complaint: dysuria Onset (ago): day(s) Female Urogenital Radiation: Non-Radiating Vaginal discharge: white Vaginal bleeding: none Urinary symptoms: Dysuria and Frequency Associated symptoms: denies other symptoms Treatment prior to arrival: none Patient : No Related Data Previous Rx's ?Medication ?Instructions ?Recorded cephalexin 500 mg capsule 500 mg PO QID 7 days #28 caps 03/15/22 valacyclovir 1 gram tablet 1,000 mg PO BID 7 days #14 tabs 03/15/22 (Valtrex) cephalexin 500 mg capsule 500 mg PO QID 7 days #28 caps 05/31/22 ibuprofen 600 mg tablet 600 mg PO Q8H 14 days #42 tabs 05/31/22 valacyclovir 1 gram tablet 1,000 mg PO BID 7 days #14 tabs 05/31/22 ciprofloxacin HCl 500 mg tablet 500 mg PO BID #14 tabs 12/01/23 ondansetron 4 mg disintegrating 4 mg PO Q8H PRN nausea and 12/01/23 tablet vomiting #10 tabs doxycycline hyclate 100 mg capsule 100 mg PO BID 7 days #14 caps 01/09/24 cephalexin 500 mg capsule 500 mg PO QID #28 caps 05/25/24 fluconazole 150 mg tablet 150 mg PO Q3D 2 doses #2 tabs 05/25/24 Allergies Allergy/AdvReac Type Severity Reaction Status Date / Time No Known Allergies Allergy Verified 05/25/24 11:21 Review of Systems Review of Systems: As per HPI. Yes all other systems are reviewed and are negative Constitutional: Constitutional: Reports as per HPI PMF Social History Social History (System 08/28/23 @ 12:26 by Unique Ricks) Advance Directives: No Advance Directives Information Provided: No Patient : No Physical Exam Vital Signs: Vital Signs: Last Vital Signs Temp 97.3 F 05/25/24 12:12 Pulse 96 05/25/24 12:12 Resp 20 05/25/24 12:12 BP 114/50 L 05/25/24 12:12 Pulse Ox 97 05/25/24 12:12 O2 Del Method Room Air 05/25/24 12:12 BMI result Body Mass Index 23.0 Vital signs have been reviewed and appear to be correct. Blood pressure normal. Heart rate normal. Respiratory rate normal. Temperature normal. Oxygen saturation normal. Const: General: cooperative, healthy appearing and no acute distress Orientation/consciousness: oriented to person, oriented to place, oriented to time and patient oriented x3 Limitations: no limitations HEENT: Head: Yes normocephalic and Yes atraumatic Ears: external ears normal General nose exam: Normal external nose present Face and sinus: Yes face symmetric Mouth: oropharynx normal and moist mucous membranes Throat: Yes uvula midline Eyes: Pupils: Equal, round and reactive pupils present Neck: Neck: Yes normal visual inspection and Yes supple Resp: Effort & Inspection: normal respiratory effort and able to speak in complete sentences Auscultation: clear to auscultation bilaterally Cardio: Rate: regular rate Rhythm: regular rhythm Heart sounds: S1 normal heart sound present and S2 normal heart sound present GI: Palpation (GI): Soft to palpation and nontender Auscultation: normoactive bowel sounds : General: Yes no CVA tenderness Back/Spine/Pelvis: Back: no CVA tenderness Skin: General skin exam: elasticity normal and turgor normal Neuro: General: oriented to person, oriented to place, oriented to time, patient oriented x3, moves all extremities, no focal motor deficits and CN's II-XI intact bilaterally Cranial nerves: Yes Equal, round and reactive pupils present Cognition (Neuro): normal cognition Extrem: General: Yes full ROM, Yes no pedal edema and Yes no calf tenderness Psych: Mental Status: mental status grossly normal Affect: normal affect Thought process: Normal thought process present Course Course Course Narrative: rme: DONE BY GEORGETTE Judge: 53 year female presents to the ED for dysuria. Patient states bilateral lower abdominal suprapubic cramping. Patient denies any bloody urine. Patient denies any flank pain, fever, or chills. Negative for any abdominal tenderness. UA ordered Medical Decision Making Medical Decision Making [facility] Narrative: Patient is a 23-year-old female presenting to the ED with complaint of dysuria and frequency for the past 3 days. On exam patient is awake, A+Ox3, VS WNL, afebrile, normal neurological exam without focal deficits, physical exam findings as above. Given reported symptoms and physical exam findings, initial differential includes UTI, pyelonephritis, STI, vulvovaginal candidiasis. Urinalysis notable for trace leukocytes, 6-10 WBCs, negative . Given that patient is symptomatically will treat for UTI at this time. Will also treat for vulvovaginal candidiasis as patient is reporting white vaginal discharge. Follow up with PCP or [facility]. Return precautions discussed. Patient verbalized understanding of and agreement with plan. Differential Diagnosis Differential Diagnoses: The differential diagnosis associated with the presentation includes As per [facility] Lab Data [facility] Lab Attestation statement: I reviewed the patient's lab results. As per [facility] Labs: Lab Results 05/25/24 Range/Units 11:29 Urine Color Yellow Urine Appearance Clear Urine pH 5.5 (5.0-9.0) Ur Specific [place] 1.020 (1.005-1.025) Urine Protein Negative (Neg-Trace) mg/dL Urine Glucose (UA) Negative (Negative) mg/dL Urine Ketones Negative (Negative) mg/dL Urine Blood Negative (Negative) Urine Nitrite Negative (Negative) Ur Leukocyte Esterase Trace H (Negative) Urine RBC 0-2 (0-2) /HPF Urine WBC 6-10 H (0-5) /HPF Ur Squamous Epith Cells 3-5 (0-2) /HPF Urine Bacteria None Seen (None Seen) Hyaline Casts 0-2 (0-2) /LPF Urine Test NEGATIVE (NEGATIVE) External Record Review External record reviewed: Inpatient record, Office record and Outpatient record Prescription Management I considered prescription management with: Antibiotic and Other Discharge Plan Discharge Clinical Impression: Urinary tract infection Patient Disposition: Home, Self-Care Instructions: Urinary Tract Infection in Women (DC), Yeast Infection (ED) Additional Instructions: You were evaluated in the emergency department today for burning with urination. You are being treated for urinary tract infection with antibiotics, please complete the full course as prescribed. You are also being treated for vulvovaginal candidiasis also known as yeast infection please take this medication as prescribed. Follow-up with your claims counsel or primary care provider. Return to the emergency department if you develop worsening pain, nausea and vomiting, fever, increasing discharge or any other concerning symptoms. Prescriptions: New cephalexin 500 mg capsule 500 mg PO QID Qty: 28 0RF fluconazole 150 mg tablet 150 mg PO Q3D Qty: 2 0RF Rx Instructions: may repeat second dose 72 hrs after first dose if symptoms persist No Action valacyclovir 1 gram tablet 1,000 mg PO BID 7 Days Qty: 14 0RF cephalexin 500 mg capsule 500 mg PO QID 7 Days Qty: 28 0RF ibuprofen 600 mg tablet 600 mg PO Q8H 14 Days Qty: 42 0RF cephalexin 500 mg capsule 500 mg PO QID 7 Days Qty: 28 0RF valacyclovir [Valtrex] 1 gram tablet 1,000 mg PO BID 7 Days Qty: 14 0RF ondansetron 4 mg tablet,disintegrating 4 mg PO Q8H PRN (Reason: nausea and vomiting) Qty: 10 0RF ciprofloxacin HCl 500 mg tablet 500 mg PO BID Qty: 14 0RF doxycycline hyclate 100 mg capsule 100 mg PO BID 7 Days Qty: 14 0RF Interventions: ED Discharge Assessment Last Done: 05/25/24 12:12 Discharge Date/Time: 05/25/24 12:12 Print Language: Green[place]ic
[2024-05-25 11:41] LABS: Appearance Urine Clear; Color Urine Yellow; Glucose Urine UA Negative (Negative); Leukocyte Esterase Urine Trace (Negative); Nitrite Urine Negative (Negative); PH 5.5 (5.0-9.0); UMIC TRIGGER UACC YES; Urine Blood Negative (Negative); Urine Ketones Negative (Negative); Urine Protein Negative (Neg-Trace)
[2024-05-25 11:42] LABS: UPreg QC Valid YES; Urine Pregnancy NEGATIVE (NEGATIVE)
[2024-05-25 11:44] LABS: Bacteria Urine None Seen (None Seen); Hyaline Casts Urine 0-2 /LPF (0-2); RBC Urine 0-2 /HPF (0-2); UACC Culture Trigger YES
[2024-05-25 12:12] VITALS: BP 114/50; PULSE 96; RESP 20; TEMP 36.3; O2SAT 97
== END 2024-05-25 12:12 | disposition home or self-care (01) ==
PROVIDERS: Physician Assistant; Emergency Provider Emergency Medicine; PCP Student in an Organized Health Care Education/Training Program
DX: N39.0 Urinary tract infection, site not specified (principal); R30.0 Dysuria; R35.0 Frequency of micturition; Z79.899 Other long term (current) drug therapy
CPT/HCPCS: 81001; 81025; 87086; 87088; 87186; 99282; 99283

== ENCOUNTER 2024-06-13 10:39 | Emergency (ER) | payer MEDICAID, SELFPAY ==
[2024-06-13 10:49] VITALS: BP 115/57; PULSE 84; RESP 16; TEMP 36.4; O2SAT 96; BMI 22.9
--- NOTE | 2024-06-13 11:07 | ED_ITS ---
HPI - Female Genitourinary General Chief complaint: Urogenital-Female Stated complaint: abd pain Time Seen by Provider: 06/13/24 11:12 Source: patient Mode of arrival: ambulatory Limitations: no limitations History of Present Illness ED Provider: Aleida Pablo PA-C HPI Narrative: Patient is a 23 year old assigned female at with no reported medical history presenting to the emergency department today with white vaginal discharge. Patient states that she was recently on an antibiotic for a UTI and is now having white vaginal discharge with vaginal irritation. Patient denies any dizziness, lightheadedness, abdominal pain, nausea, vomiting, fever, chills, blurry vision, double vision, loss of vision, chest pain, difficulty breathing, shortness of breath, back pain, night sweats, pain with urination, increased urinary frequency, increased urinary urgency, blood in her urine or stool, syncope or a near syncopal episode, recent trauma or falls, bowel incontinence, bladder incontinence, or any other complaints at this time. Onset (ago): day(s) Severity: mild Vaginal discharge: white Vaginal bleeding: none Exacerbating factors: urination Relieving factors: none Associated symptoms: denies other symptoms Related Data Previous Rx's ?Medication ?Instructions ?Recorded cephalexin 500 mg capsule 500 mg PO QID 7 days #28 caps 03/15/22 valacyclovir 1 gram tablet 1,000 mg PO BID 7 days #14 tabs 03/15/22 (Valtrex) cephalexin 500 mg capsule 500 mg PO QID 7 days #28 caps 05/31/22 ibuprofen 600 mg tablet 600 mg PO Q8H 14 days #42 tabs 05/31/22 valacyclovir 1 gram tablet 1,000 mg PO BID 7 days #14 tabs 05/31/22 ciprofloxacin HCl 500 mg tablet 500 mg PO BID #14 tabs 12/01/23 ondansetron 4 mg disintegrating 4 mg PO Q8H PRN nausea and 12/01/23 tablet vomiting #10 tabs doxycycline hyclate 100 mg capsule 100 mg PO BID 7 days #14 caps 01/09/24 cephalexin 500 mg capsule 500 mg PO QID #28 caps 05/25/24 fluconazole 150 mg tablet 150 mg PO Q3D 2 doses #2 tabs 05/25/24 fluconazole 150 mg tablet 150 mg PO Q3D 1 dose #1 tab 06/13/24 metronidazole 500 mg tablet 500 mg PO BID 7 days #14 tabs 06/13/24 Allergies Allergy/AdvReac Type Severity Reaction Status Date / Time No Known Allergies Allergy Verified 06/13/24 10:52 Review of Systems Constitutional: Constitutional: Reports no additional constitutional complaints, Denies chills, Denies fever(s) and Denies night sweats Eyes: Eyes: Reports no additional eye complaints, Denies blurry vision, Denies change in vision, Denies diplopia, Denies eye discharge, Denies loss of vision and Denies eye pain ENT: Denies dizziness Cardiovascular: Cardiovascular: Reports no additional cardiovascular complaint s, Denies chest pain, Denies lightheadedness, Denies Loss of Consciousness and Denies dyspnea Respiratory: Respiratory: Reports no additional respiratory complaints and Denies dyspnea Gastrointestinal: Gastrointestinal: Reports no additional gastrointestinal complaints, Denies abdominal pain, Denies melena, Denies hematochezia, Denies change in bowel habits and Denies change in stool character Genitourinary: Genitourinary: Denies hematuria, Denies urinary frequency, Denies dysuria, Denies urinary incontinence, Denies urinary hesitancy, Denies urinary urgency, Reports vaginal discharge (white) and Reports vaginal pruritus Musculoskeletal: Musculoskeletal: Reports no additional musculoskeletal complaints, Denies numbness and Denies tingling Neurologic: Denies dizziness, Denies loss of vision, Denies numbness and Denies tingling Psychiatric: Psychiatric: Reports no additional psychiatric complaints Endocrine: Endocrine: Reports no additional endocrine complaints Hematologic/Lymphatic: Hematologic/Lymphatic: Reports no additional hematologic/lymphatic complaints Allergic/Immunologic: Allergic/Immunologic: Reports no additional allergic/immunologic complaints PMFSH Past Medical History Attestation statement: The following information was validated with the patient. Source: old records reviewed and nursing notes reviewed Social History Social History Advance Directives: No Advance Directives Information Provided: Yes Physical Exam Vital Signs: Vital Signs: Last Vital Signs Temp 97.6 F 06/13/24 10:49 Pulse 84 06/13/24 10:49 Resp 16 06/13/24 10:49 BP 115/57 L 06/13/24 10:49 Pulse Ox 96 06/13/24 10:49 O2 Del Method Room Air 06/13/24 10:49 BMI result Body Mass Index 22.9 Const: General: cooperative, no acute distress, alert and awake Nutritional Appearance: well nourished Orientation/consciousness: patient oriented x3 Limitations: no limitations HEENT: Head: Yes normal to inspection and Yes atraumatic Ears: hearing nadia sly normal bilaterally and external ears normal General nose exam: Normal external nose present, no nasal discharge noted and no epistaxis Face and sinus: Yes normal facial exam, No abrasion and No laceration Mouth: Normal oral and palatal mucosa present, no drooling and no muffled voice Eyes: General: appearance normal, both eyes and all related structures Periorbital: periorbital findings normal Eyelids: Yes eyelids normal Conjunctivae: conjunctivae normal Pupils: Equal, round and reactive pupils present EOM: EOMs intact bilaterally Neck: Neck: Yes normal visual inspection, Yes full ROM and Yes no lymphadenopathy Chest: Chest palpation & inspection: normal inspection of the chest Resp: Effort & Inspection: normal respiratory effort and able to speak in com plete sentences GI: Inspection: Yes normal to inspection : Other: vaginal examination deferred by patient Neuro: General: patient oriented x3 and moves all extremities Cranial nerves: Yes Equal, round and reactive pupils present Cognition (Neuro): normal cognition Extrem: General: Yes normal to inspection, Yes full ROM and Yes capillary refill normal Psych: Appearance: grossly normal Mental Status: mental status grossly normal Affect: normal affect Attitude: cooperative Thought process: Normal thought process present Thought content: Normal thought content present Insight: Good insight present (Psych) Course Course Course Narrative: This is an RME performed by Adiel Steel CNP: Additional HPI, ROS, PE not included below will be deferred to primary provider. Is a 23-year-old female w ho presents emergency department for evaluation of white vaginal discharge, dysuria, reports recently treated for urinary tract infection symptoms persist. Denies concern for sexually transmitted infections. Does not recall date of last menstrual period Plan labs, urinalysis, examination Medications Administered Discontinued Medications Generic Name Dose Route Start Last Admin Trade Name Freq PRN Reason Stop Dose Admin Fluconazole 150 mg 06/13/24 11:57 06/13/24 12:19 Fluconazole 150 Mg Tablet PO 06/13/24 11:58 150 mg ONCE ONE Administration Metronidazole 500 mg 06/13/24 11:58 06/13/24 12:19 Metronidazole 500 Mg Tablet PO 06/13/24 11:59 500 mg ONCE ONE Administration Medical Decision Making Medical Decision Making [facility] Narrative: Patient is a 23 year old assigned female at with no reported medical history presenting to the emergency department today with vaginal irritation and white discharge. Patient's physical exam was unremarkable. Patient declined to have a pelvic examination. Patient's urine showed no acute process. Patient's CT/NG and BV/Tric swabs are pending at this time. Given patient's clinical presentation, will treat for BV / yeast. Patient adamantly declined STI exposure and declined treatment for STIs at this time. I explained my physical exam findings as well as all test results to the patient. I answered all questions asked by the patient. I stressed the importance of the patient taking her medication as directed (either prescribed or as the over the counter packaging recommends). I stressed the importance of the patient following up with her primary care provider. I stressed the importance of the patient returning to the emergency department immediately if her symptoms were to worsen or if she were to develop any dizziness, shortness of breath, difficulty breathing, chest pain, blurry vision, loss of vision, nausea, vomiting, abdominal pain, fever, chills, back pain, or any other complaints. Patient verbalized agreement and understanding with this treatment plan and discharge. Differential Diagnosis Differential Diagnoses: The differential diagnosis associated with the presentation includes BV trich Vaginal discharge Yeast Admission/Observation Consideration of admission/observation: Escalation of care including admission/observation considered Patient would have been admitted to the hospital had her work up had any findings where hospital admission was appropriate and her clinical presentation warranted hospital admission. Lab Data [facility] Lab Attestation statement: I reviewed the patient's lab results. My interpretation of these results are in the [facility] Rationale portion of this note. Labs: Lab Results 06/13/24 Range/Units 11:41 Urine Color Yellow Urine Appearance Clear Urine pH 6.0 (5.0-9.0) Ur Specific [place] 1.025 (1.005-1.025) Urine Protein Negative (Neg-Trace) mg/dL Urine Glucose (UA) Negative (Negative) mg/dL Urine Ketones Negative (Negative) mg/dL Urine Blood Negative (Negative) Urine Nitrite Negative (Negative) Ur Leukocyte Esterase Small (1+) H (Negative) Urine RBC 0-2 (0-2) /HPF Urine WBC 0-5 (0-5) /HPF Ur Squamous Epith Cells 6-10 (0-2) /HPF Urine Bacteria None Seen (None Seen) Hyaline Casts 0-2 (0-2) /LPF Urine Test NEGATIVE (NEGATIVE) Prescription Management I considered prescription management with: Antibiotic (patient prescribed an antibiotic to cover for BV) and Other (patient prescribed an antifungal to cover for vaginal yeast) Discharge Plan Discharge Clinical Impression: Vaginal discharge Patient Disposition: Home, Self-Care Instructions: Vaginal Discharge (ED) Additional Instructions: Follow up with your primary care provider. Return to the emergency department immediately if your symptoms worsen or if you develop any dizziness, shortness of breath, difficulty breathing, chest pain, blurry vision, loss of vision, nausea, vomiting, abdominal pain, fever, chills, back pain, or any other complaints. Please see the information below about our Patient Portal. If you are not yet enrolled in the [facility] Patient Portal, you will receive an enrollment email invitation following your visit to any [facility] care setting. You may also self-enroll in the Patient Portal by visiting our website: [email or web address] The following information is required to access the Patient Portal: - Your [facility] Medical Record Number - Your personal home email address (must match what is in your electronic medical record, Registration staff can assist with this) - Name - Date of Capabilities of the Patient Portal: - Message some providers - View upcoming appointments - Access your health summary, medical history, and visit history - View current conditions and allergies - View procedure and lab results - View your medications, including guidelines, side effects, and precautions - Complete pre-appointment questionnaires requested by your provider - Ready summary reports of your office visits and procedures To access the Patient Portal Mobile Charlie, follow these directions: - Search [employer] in the Charlie Store or Google [employer] Store - Download the Charlie - Search for [facility] - Enter your login/password Prescriptions: New fluconazole 150 mg tablet 150 mg PO Q3D Qty: 1 0RF Rx Instructions: Take on 06/16/2024 metronidazole 500 mg tablet 500 mg PO BID 7 Days Qty: 14 0RF No Action valacyclovir 1 gram tablet 1,000 mg PO BID 7 Days Qty: 14 0RF cephalexin 500 mg capsule 500 mg PO QID 7 Days Qty: 28 0RF ibuprofen 600 mg tablet 600 mg PO Q8H 14 Days Qty: 42 0RF cephalexin 500 mg capsule 500 mg PO QID 7 Days Qty: 28 0RF valacyclovir [Valtrex] 1 gram tablet 1,000 mg PO BID 7 Days Qty: 14 0RF cephalexin 500 mg capsule 500 mg PO QID Qty: 28 0RF fluconazole 150 mg tablet 150 mg PO Q3D Qty: 2 0RF Rx Instructions: may repeat second dose 72 hrs after first dose if symptoms persist ondansetron 4 mg tablet,disintegrating 4 mg PO Q8H PRN (Reason: nausea and vomiting) Qty: 10 0RF ciprofloxacin HCl 500 mg tablet 500 mg PO BID Qty: 14 0RF doxycycline hyclate 100 mg capsule 100 mg PO BID 7 Days Qty: 14 0RF Referrals: Mignon King MD [Primary Care Provider] - Stand Alone Forms: Work/School Release Print Language: Kiswahili
[2024-06-13 11:49] LABS: Appearance Urine Clear; Color Urine Yellow; Glucose Urine UA Negative (Negative); Leukocyte Esterase Urine Small (1+) (Negative); Nitrite Urine Negative (Negative); Specific Gravity - Urine 1.025 (1.005-1.025); UMIC TRIGGER UACC YES; UPreg QC Valid YES; Urine Blood Negative (Negative); Urine Ketones Negative (Negative); Urine Pregnancy NEGATIVE (NEGATIVE); Urine Protein Negative (Neg-Trace)
[2024-06-13 12:04] LABS: Bacteria Urine None Seen (None Seen); Hyaline Casts Urine 0-2 /LPF (0-2); RBC Urine 0-2 /HPF (0-2); UACC Culture Trigger YES; WBC Urine 0-5 /HPF (0-5)
[2024-06-13] MEDS: Fluconazole 150 MG TABLET PO (12:19)
[2024-06-13] MEDS: metroNIDAZOLE 500 MG TABLET PO (12:19)
[2024-06-13 12:45] VITALS: BP 115/57; PULSE 84; RESP 16; TEMP 36.4; O2SAT 96
[2024-06-13 13:08] LABS: Bacterial Vaginosis PCR NEGATIVE (Negative); Candida Group PCR DETECTED (Not Detect); Candida glab krusei PCR NOT DETECTED (Not Detect); Trichomonas vaginalis PCR NOT DETECTED (Not Detect)
[2024-06-13 13:39] LABS: CT PCR NOT DETECTED (Not Detect.); NG PCR NOT DETECTED (Not Detect.)
== END 2024-06-13 12:52 | disposition home or self-care (01) ==
PROVIDERS: Nurse Practitioner Family; Physician Assistant Medical; Emergency Provider Student in an Organized Health Care Education/Training Program; PCP Student in an Organized Health Care Education/Training Program
DX: N89.8 Other specified noninflammatory disorders of vagina (principal); R30.0 Dysuria
CPT/HCPCS: 0352U; 81001; 81025; 87086; 87491; 87591; 99283

== ENCOUNTER 2024-06-15 14:41 | Emergency (ER) | payer MEDICAID, SELFPAY ==
[2024-06-15 14:45] VITALS: BP 106/65; PULSE 76; RESP 18; TEMP 36.2; O2SAT 96; BMI 22.9
--- NOTE | 2024-06-15 14:53 | ED.FEMALEGU ---
HPI - Female Genitourinary General Chief complaint: Urogenital-Female Stated complaint: vag rash Time Seen by Provider: 06/15/24 14:55 Source: patient and family Mode of arrival: ambulatory Limitations: no limitations History of Present Illness ED Provider: Corazon Teran APRN HPI Narrative: 23-year-old female with no known medical history here with complaints of vaginal itching, vaginal burning, vaginal discharge for several days. Seen here 2 days ago diagnosed with the yeast infection. Given metronidazole 500 mg twice daily for 7 days and fluconazole 150 mg tablets x2. Patient reports she took her initial dose of fluconazole as well as been taking her metronidazole but feels like her symptoms have not improved prompting her to return to the emergency room. She denies any abdominal pain, back pain, fevers, chills, vomiting. Of note, she was also tested for STIs during her last visit which were negative. Related Data Previous Rx's ?Medication ?Instructions ?Recorded cephalexin 500 mg capsule 500 mg PO QID 7 days #28 caps 03/15/22 valacyclovir 1 gram tablet 1,000 mg PO BID 7 days #14 tabs 03/15/22 (Valtrex) cephalexin 500 mg capsule 500 mg PO QID 7 days #28 caps 05/31/22 ibuprofen 600 mg tablet 600 mg PO Q8H 14 days #42 tabs 05/31/22 valacyclovir 1 gram tablet 1,000 mg PO BID 7 days #14 tabs 05/31/22 ciprofloxacin HCl 500 mg tablet 500 mg PO BID #14 tabs 12/01/23 ondansetron 4 mg disintegrating 4 mg PO Q8H PRN nausea and 12/01/23 tablet vomiting #10 tabs doxycycline hyclate 100 mg capsule 100 mg PO BID 7 days #14 caps 01/09/24 cephalexin 500 mg capsule 500 mg PO QID #28 caps 05/25/24 fluconazole 150 mg tablet 150 mg PO Q3D 2 doses #2 tabs 05/25/24 fluconazole 150 mg tablet 150 mg PO Q3D 1 dose #1 tab 06/13/24 metronidazole 500 mg tablet 500 mg PO BID 7 days #14 tabs 06/13/24 clotrimazole 2 % vaginal cream 1 appful vaginal BEDTIME 3 days 06/15/24 (Clotrimazole 3 Day) #21 grams Allergies Allergy/AdvReac Type Severity Reaction Status Date / Time No Known Allergies Allergy Verified 06/15/24 14:51 Review of Systems Review of Systems: Yes all other systems are reviewed and are negative Constitutional: Constitutional: Reports no additional constitutional complaints, Denies body ache(s), Denies chills, Denies fever(s), Denies headache(s) and Denies weakness Eyes: Eyes: Reports no additional eye complaints and Denies change in vision ENT: Reports system reviewed and no additional complaints, except as documented, Denies dizziness, Denies headache(s), Denies nasal congestion, Denies nasal discharge and Denies neck pain Cardiovascular: Cardiovascular: Reports no additional cardiovascular complaints, Denies chest pain, Denies leg edema and Denies dyspnea Respiratory: Respiratory: Reports no additional respiratory complaints, Denies cough and Denies dyspnea Gastrointestinal: Gastrointestinal: Reports no additional gastrointestinal complaints, Denies abdominal pain, Denies diarrhea, Denies nausea and Denies vomiting Genitourinary: Genitourinary: Reports no additional female genitourinary complaints, Reports dysuria, Denies urinary incontinence, Denies urinary hesitancy, Denies urinary urgency, Reports vaginal discharge, Denies vaginal dryness, Denies vaginal odor and Reports vaginal pruritus Musculoskeletal: Musculoskeletal: Reports no additional musculoskeletal complaints, Denies back pain, Denies arthralgias, Denies joint swelling, Denies neck pain, Denies numbness and Denies tingling Integumentary/Breasts: Skin/Breast: Reports system reviewed and no additional complaints, except as docu and Denies rash Neurologic: Reports system reviewed and no additional complaints, except as documented, Denies Abnormal speech present, Denies dizziness, Denies headache(s), Denies numbness, Denies tingling and Denies weakness [facility] Past Medical History Attestation statement: The following information was validated with the patient. Source: old records reviewed and nursing notes reviewed Social History Social History Advance Directives: No Advance Directives Information Provided: No Do you have a plan to hurt others: No Plan Physical Exam Vital Signs: Vital Signs: Last Vital Signs Temp 98.2 F 06/15/24 15:50 Pulse 70 06/15/24 15:50 Resp 16 06/15/24 15:50 BP 121/71 06/15/24 15:50 Pulse Ox 98 06/15/24 15:50 O2 Del Method Room Air 06/15/24 15:50 BMI result Body Mass Index 22.9 Const: General: cooperative, healthy appearing, comfortable and no acute distress Orientation/consciousness: patient oriented x3 Limitations: no limitations HEENT: Head: Yes normal to inspection Ears: hearing grossly normal bilaterally General nose exam: Normal external nose present Face and sinus: Yes normal facial exam Mouth: Normal oral and palatal mucosa present Throat: Yes posterior oropharynx normal Eyes: General: appearance normal, both eyes and all related structures Pupils: Equal, round and reactive pupils present Neck: Neck: Yes normal visual inspection Chest: Chest palpation & inspection: normal inspection of the chest Resp: Effort & Inspection: normal respiratory effort Auscultation: clear to auscultation bilaterally Cardio: Rate: regular rate Rhythm: regular rhythm Peripheral pulses: Peripheral pulses 2+ throughout GI: Inspection: Yes normal to inspection Palpation (GI): Soft to palpation and nontender Auscultation: normal bowel sounds : 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 No rash noted Scant white vaginal discharge Speculum Exam - Vagina: erythematous and swelling Back/Spine/Pelvis: Thoracic/Lumbar Spine: thoracic and lumbar spine normal to inspection Skin: General skin exam: no rashes or lesions noted Neuro: General: patient oriented x3, no focal motor deficits and normal sensation to monofilament Cranial nerves: Yes Equal, round and reactive pupils present Cognition (Neuro): normal cognition Speech: No Abnormal speech present Gait exam (Neuro): Normal gait present Motor exam (neuro): 5/5 motor strength present throughout Extrem: General: Yes normal to inspection Course Course Course Narrative: RME: done by GEORGETTE Judge. 23 yold female seen here two days ago vaginal white discharge. now here with red rash on genitals with whte rash. Patient's chlamydia and gonorrhea urine test was negative. Patient has positive Chela. Patient was given fluconazole 1 tablet. Patient is here for re-evaluation Medical Decision Making Medical Decision Making MDM Narrative: 23-year-old female with no known medical history here with complaints of vaginal itching, vaginal burning, vaginal discharge for several days. Seen here 2 days ago diagnosed with the yeast infection. Given metronidazole 500 mg twice daily for 7 days and fluconazole 150 mg tablets x2. Patient reports she took her initial dose of fluconazole as well as been taking her metronidazole but feels like her symptoms have not improved prompting her to return to the emergency room. She denies any abdominal pain, back pain, fevers, chills, vomiting. Of note, she was also tested for STIs during her last visit which were negative. +vaginal swelling/erythema and scant white discharge c/w with chela Reviewed all of patient's testing from 2 days ago. I did explain all this to her. She can discontinue the metronidazole. She can continue the fluconazole. I will add a topical antifungal as well. We also reviewed care at home for yeast infection Differential Diagnosis Differential Diagnoses: The differential diagnosis associated with the presentation includes Yeast infection STI UTI HSV Admission/Observation Consideration of admission/observation: Escalation of care including admission/observation considered Lab Data MDM Lab Attestation statement: I reviewed the patient's lab results. Labs: Lab Results 06/15/24 Range/Units 15:11 Urine Color Yellow Urine Appearance Clear Urine pH 6.5 (5.0-9.0) Ur Specific [place] 1.020 (1.005-1.025) Urine Protein Negative (Neg-Trace) mg/dL Urine Glucose (UA) Negative (Negative) mg/dL Urine Ketones Negative (Negative) mg/dL Urine Blood Negative (Negative) Urine Nitrite Negative (Negative) Ur Leukocyte Esterase Small (1+) H (Negative) Urine RBC 0-2 (0-2) /HPF Urine WBC 0-5 (0-5) /HPF Ur Squamous Epith Cells 0-2 (0-2) /HPF Urine Bacteria None Seen (None Seen) Hyaline Casts 0-2 (0-2) /LPF Urine Test NEGATIVE (NEGATIVE) Independent Historian Clinical information obtained from an independent historian. History obtained from or confirmed by: Friend External Record Review External record reviewed: Outside ED record Prescription Management I considered prescription management with: Antibiotic Discharge Plan Discharge Clinical Impression: Vaginitis Patient Disposition: Home, Self-Care Instructions: Yeast Infection (ED) Additional Instructions: You may stop taking the metronidazole Continue the fluconazole Use the topical medication to as prescribed Cotton underwear only, loose-fitting bottoms, no soap inside the vagina Prescriptions: New Clotrimazole 3 Day 2 % cream 1 appful vaginal BEDTIME 3 Days Qty: 21 0RF No Action valacyclovir 1 gram tablet 1,000 mg PO BID 7 Days Qty: 14 0RF cephalexin 500 mg capsule 500 mg PO QID 7 Days Qty: 28 0RF ibuprofen 600 mg tablet 600 mg PO Q8H 14 Days Qty: 42 0RF cephalexin 500 mg capsule 500 mg PO QID 7 Days Qty: 28 0RF valacyclovir [Valtrex] 1 gram tablet 1,000 mg PO BID 7 Days Qty: 14 0RF cephalexin 500 mg capsule 500 mg PO QID Qty: 28 0RF fluconazole 150 mg tablet 150 mg PO Q3D Qty: 2 0RF Rx Instructions: may repeat second dose 72 hrs after first dose if symptoms persist fluconazole 150 mg tablet 150 mg PO Q3D Qty: 1 0RF Rx Instructions: Take on 06/16/2024 metronidazole 500 mg tablet 500 mg PO BID 7 Days Qty: 14 0RF ondansetron 4 mg tablet,disintegrating 4 mg PO Q8H PRN (Reason: nausea and vomiting) Qty: 10 0RF ciprofloxacin HCl 500 mg tablet 500 mg PO BID Qty: 14 0RF doxycycline hyclate 100 mg capsule 100 mg PO BID 7 Days Qty: 14 0RF Referrals: [facility] [Primary Care Provider] - 1 week Interventions: ED Discharge Assessment Last Done: 06/15/24 15:50 Discharge Date/Time: 06/15/24 15:51 Print Language: Hungarian
[2024-06-15 15:24] LABS: Appearance Urine Clear; Color Urine Yellow; Glucose Urine UA Negative (Negative); Leukocyte Esterase Urine Small (1+) (Negative); Nitrite Urine Negative (Negative); PH 6.5 (5.0-9.0); UMIC TRIGGER UACC YES; Urine Blood Negative (Negative); Urine Ketones Negative (Negative); Urine Protein Negative (Neg-Trace)
[2024-06-15 15:29] LABS: UPreg QC Valid YES; Urine Pregnancy NEGATIVE (NEGATIVE)
[2024-06-15 15:32] VITALS: BP 121/71; PULSE 70; RESP 16; TEMP 36.8; O2SAT 98
[2024-06-15 15:32] LABS: Bacteria Urine None Seen (None Seen); Hyaline Casts Urine 0-2 /LPF (0-2); RBC Urine 0-2 /HPF (0-2); Squamous Epithelial Cell Urine 0-2 /HPF (0-2); UACC Culture Trigger YES; WBC Urine 0-5 /HPF (0-5)
--- NOTE | 2024-06-15 15:33 | MHC.EDTECH ---
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
[2024-06-15 15:50] VITALS: BP 121/71; PULSE 70; RESP 16; TEMP 36.8; O2SAT 98
== END 2024-06-15 15:51 | disposition home or self-care (01) ==
PROVIDERS: Physician Assistant; Emergency Provider Emergency Medicine
DX: N76.0 Acute vaginitis (principal)
CPT/HCPCS: 81001; 81025; 99283

== ENCOUNTER 2024-07-31 17:04 | Emergency (ER) | payer MEDICAID, SELFPAY ==
--- NOTE | ~2024-07-31 | XR_ITS ---
EXAMINATION: XR KNEE, RIGHT CLINICAL INDICATION: Fall onto knees COMPARISON: None TECHNIQUE: 2 views of the right knee. FINDINGS: Osseous alignment is anatomic. Joint spaces appear maintained. No acute fracture is seen. No significant effusion. XR/XR knee RT 2V IMPRESSION: No acute findings identified. Electronically signed by: Collin Boyer MD 07/31/2024 08:13 PM EDT
--- NOTE | ~2024-07-31 | XR_ITS ---
EXAMINATION: XR KNEE, LEFT CLINICAL INDICATION: Fall onto knee COMPARISON: None TECHNIQUE: 2 views of the left knee. FINDINGS: Osseous alignment is anatomic. Joint spaces appear maintained. No acute fracture is seen. No significant joint effusion. XR/XR knee LT 2V IMPRESSION: No acute findings. Electronically signed by: Collin Boyer MD 07/31/2024 08:12 PM EDT
[2024-07-31 17:19] VITALS: BP 114/68; PULSE 82; RESP 14; TEMP 37.4; O2SAT 99
[2024-07-31 17:21] VITALS: BP 138/78; PULSE 60
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
[2024-07-31 17:38] VITALS: BMI 21.7
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
--- NOTE | 2024-07-31 19:34 | MHC.EDTECH ---
bacitracin and non stick pad/gauze wrap applied to patient injuries. Patient tolerated well.
[2024-07-31] MEDS: Bacitracin Oint 0.9 GM PACKET 1 APPL TOPICAL ×3 (19:56)
[2024-07-31 20:35] VITALS: BP 134/72; PULSE 87; RESP 16; TEMP 37.1; O2SAT 97
[2024-07-31 21:00] VITALS: BP 134/72; PULSE 87; RESP 16; TEMP 37.1; O2SAT 97
== END 2024-07-31 21:00 | disposition home or self-care (01) ==
PROVIDERS: Emergency Provider Emergency Medicine; PCP Student in an Organized Health Care Education/Training Program
DX: S80.212A Abrasion, left knee, initial encounter (principal); S80.211A Abrasion, right knee, initial encounter; S50.312A Abrasion of left elbow, initial encounter; Y04.2XXA Assault by strike against or bumped into by another person, initial encounter; Y93.89 Activity, other specified; Y92.89 Other specified places as the place of occurrence of the external cause; Y99.9 Unspecified external cause status
CPT/HCPCS: 73560; 99283

== ENCOUNTER 2024-08-07 14:44 | Emergency (ER) | payer MEDICAID, SELFPAY ==
[2024-08-07 15:38] VITALS: BP 124/67; PULSE 74; RESP 16; TEMP 36.6; O2SAT 100; BMI 22.8
--- NOTE | 2024-08-07 15:50 | ED.FEMALEGU ---
HPI - Female Genitourinary General Chief complaint: Urogenital-Female Stated complaint: Yeast infection? Time Seen by Provider: 08/07/24 17:52 Source: patient Mode of arrival: ambulatory Limitations: no limitations History of Present Illness ED Provider: Dyana Mckenna PA-C HPI Narrative: 23-year-old female with history of genital herpes, history of recent yeast infection in June who presents to the ER for white vaginal discharge and redness or vaginal area that started a couple of days ago. She endorses a new sexual partner for which she had unprotected sex. She has had symptoms for 3 or 4 days. Denies any abdominal pain, nausea, vomiting, diarrhea, fever, chills. She is usually on herpes suppression medication which she missed 3 days of. She denies any painful external lesions. She denied any dysuria or hematuria. MD elicited complaint: vaginal discharge Pertinent past history: STI/STD Onset (ago): day(s) Location of symptoms: external genitalia and vaginal Severity: moderate Quality of pain: other (Itchy) Consistency: constant Vaginal discharge: white and creamy Vaginal bleeding: none Exacerbating factors: none Relieving factors: none Associated symptoms: denies other symptoms Treatment prior to arrival: none Sexual activity: Yes Patient : No Related Data Previous Rx's ?Medication ?Instructions ?Recorded cephalexin 500 mg capsule 500 mg PO QID 7 days #28 caps 03/15/22 valacyclovir 1 gram tablet 1,000 mg PO BID 7 days #14 tabs 03/15/22 (Valtrex) cephalexin 500 mg capsule 500 mg PO QID 7 days #28 caps 05/31/22 ibuprofen 600 mg tablet 600 mg PO Q8H 14 days #42 tabs 05/31/22 valacyclovir 1 gram tablet 1,000 mg PO BID 7 days #14 tabs 05/31/22 ciprofloxacin HCl 500 mg tablet 500 mg PO BID #14 tabs 12/01/23 ondansetron 4 mg disintegrating 4 mg PO Q8H PRN nausea and 12/01/23 tablet vomiting #10 tabs doxycycline hyclate 100 mg capsule 100 mg PO BID 7 days #14 caps 01/09/24 cephalexin 500 mg capsule 500 mg PO QID #28 caps 05/25/24 fluconazole 150 mg tablet 150 mg PO Q3D 2 doses #2 tabs 05/25/24 fluconazole 150 mg tablet 150 mg PO Q3D 1 dose #1 tab 06/13/24 metronidazole 500 mg tablet 500 mg PO BID 7 days #14 tabs 06/13/24 clotrimazole 2 % vaginal cream 1 appful vaginal BEDTIME 3 days 06/15/24 (Clotrimazole 3 Day) #21 grams bacitracin 500 unit/gram topical 1 appl topical TID #30 grams 07/31/24 ointment doxycycline monohydrate 100 mg 100 mg PO BID #13 caps 08/07/24 capsule fluconazole 150 mg tablet 150 mg PO ONCE 1 dose #1 tab 08/07/24 metronidazole 500 mg tablet 500 mg PO BID #13 tabs 08/07/24 Allergies Allergy/AdvReac Type Severity Reaction Status Date / Time No Known Allergies Allergy Verified 08/07/24 15:38 Review of Systems Review of Systems: Yes all other systems are reviewed and are negative [facility] Social History Social History Advance Directives: No Advance Directives Information Provided: No Do you have a plan to hurt others: No Plan Patient : No Physical Exam Vital Signs: Vital Signs: Last Vital Signs Temp 98.1 F 08/07/24 19:44 Pulse 73 08/07/24 19:44 Resp 16 08/07/24 19:44 BP 118/56 L 08/07/24 19:44 Pulse Ox 99 08/07/24 19:44 O2 Del Method Room Air 08/07/24 19:44 BMI result Body Mass Index 22.8 Appearance: Alert. Oriented X3. No acute distress. HEENT: normal external inspection Neck: Normal inspection. Neck supple. CVS: Normal heart rate and rhythm. Pulses normal. Respiratory: No respiratory distress. Breath sounds normal. Abdomen: Soft and nontender. +BS x4 : Normal external inspection, no ulcerating lesions, no external rash. vaginal canal with a moderate amount of white, moderately thick but not curd-like discharge. No bleeding. Skin: Skin warm and dry. Normal skin color. Normal skin turgor. No rashes. Extremities: No lower extremity edema. No joint swelling. Neuro/psych: Oriented X 3. Grossly normal, nonfocal Course Course Course Narrative: RME: Done by Nicky Conklin. 23-year-old female presents to ED for genitourinary problem. Patient states vaginal lesions red bumpy with white discharge. Patient states history of HSV and has been without her acyclovir for the past 3 days. Patient wants to get checked out labs UA ordered Medications Administered Discontinued Medications Generic Name Dose Route Start Last Admin Trade Name Rayna PRN Reason Stop Dose Admin Ceftriaxone Sodium 250 mg/ 0 mg 08/07/24 18:58 08/07/24 19:19 Lidocaine HCl 0.9 ml IM 08/07/24 18:59 1 kit ONCE ONE Administration Doxycycline Monohydrate 100 mg 08/07/24 18:58 08/07/24 19:19 Doxycycline Monohydrate 100 Mg Capsule PO 08/07/24 18:59 100 mg ONCE ONE Administration Fluconazole 150 mg 08/07/24 18:58 08/07/24 19:19 Fluconazole 150 Mg Tablet PO 08/07/24 18:59 150 mg ONCE ONE Administration Metronidazole 500 mg 08/07/24 18:58 08/07/24 19:19 Metronidazole 500 Mg Tablet PO 08/07/24 18:59 500 mg ONCE ONE Administration Medical Decision Making Medical Decision Making [facility] Narrative: 23-year-old female presents to the ER for evaluation of vaginal discharge and itching for the last few days after encounter with a new sexual partner. Will start empiric treatment for chlamydia gonorrhea. Exam most consistent with bacterial vaginosis. Will start treatment for this. Swabs are pending. Encouraged follow-up with her patient portal for results. Stable for discharge home. Differential Diagnosis Differential Diagnoses: The differential diagnosis associated with the presentation includes STI, UTI, HSV, BV, trich, yeast infection, no evidence of PID Lab Data [facility] Lab Attestation statement: I reviewed the patient's lab results. Labs: Lab Results 08/07/24 08/07/24 08/07/24 Range/Units 18:02 18:58 19:03 Urine Color Yellow Urine Appearance Turbid Urine pH 8.5 (5.0-9.0) Ur Specific [place] 1.020 (1.005-1.025) Urine Protein Negative (Neg-Trace) mg/dL Urine Glucose (UA) Negative (Negative) mg/dL Urine Ketones Negative (Negative) mg/dL Urine Blood Negative (Negative) Urine Nitrite Negative (Negative) Ur Leukocyte Esterase Negative (Negative) Urine Test NEGATIVE (NEGATIVE) Chlam trachomat DNA PCR DETECTED A (Not Detect.) N.gonorrhoeae DNA (PCR) NOT DETECTED (Not Detect.) T. vaginalis (PCR) NOT DETECTED (Not Detect) Bact Vaginosis (PCR) POSITIVE A (Negative) C. krusei/glabrata (PCR) NOT DETECTED (Not Detect) Chela group (PCR) NOT DETECTED (Not Detect) Prescription Management I considered prescription management with: Antibiotic Chronic Conditions Patient?s care impacted by: Other (HSV) Critical Care Time Critical Care Time Critical Care Time: No Discharge Plan Discharge Clinical Impression: Vaginal discharge Patient Disposition: Home, Self-Care Instructions: Vaginal Discharge (ED) Additional Instructions: Your urine test was negative for infection and . Your examination was most consistent with either bacterial vaginosis or yeast infection. Your given 1st doses of antibiotics and antifungal medications here in the emergency department today. Next doses are not due until tomorrow morning. Recommend following up with your results on the patient portal. If your Gardnerella test comes back negative this means you do not have BV and you can stop the metronidazole. If your chlamydia comes back negative it means you do not have chlamydia and you can stop the doxycycline. Otherwise if you are unable to check the results, recommend continuing the prescribed antibiotics to completion. Take the fluconazole antifungal medicine for yeast infection in 3 days. Your given 1st dose today. This is only a 2 pill treatment. Do not have sex until all of your symptoms resolved in your completely off of antibiotics. Follow-up with your OBGYN. Prescriptions: New metronidazole 500 mg tablet 500 mg PO BID Qty: 13 0RF doxycycline monohydrate 100 mg capsule 100 mg PO BID Qty: 13 0RF fluconazole 150 mg tablet 150 mg PO ONCE Qty: 1 0RF Rx Instructions: administer on day 3 of therapy No Action valacyclovir 1 gram tablet 1,000 mg PO BID 7 Days Qty: 14 0RF cephalexin 500 mg capsule 500 mg PO QID 7 Days Qty: 28 0RF ibuprofen 600 mg tablet 600 mg PO Q8H 14 Days Qty: 42 0RF cephalexin 500 mg capsule 500 mg PO QID 7 Days Qty: 28 0RF valacyclovir [Valtrex] 1 gram tablet 1,000 mg PO BID 7 Days Qty: 14 0RF cephalexin 500 mg capsule 500 mg PO QID Qty: 28 0RF fluconazole 150 mg tablet 150 mg PO Q3D Qty: 2 0RF Rx Instructions: may repeat second dose 72 hrs after first dose if symptoms persist fluconazole 150 mg tablet 150 mg PO Q3D Qty: 1 0RF Rx Instructions: Take on 06/16/2024 metronidazole 500 mg tablet 500 mg PO BID 7 Days Qty: 14 0RF Clotrimazole 3 Day 2 % cream 1 appful vaginal BEDTIME 3 Days Qty: 21 0RF bacitracin 500 unit/gram ointment 1 appl topical TID Qty: 30 0RF ondansetron 4 mg tablet,disintegrating 4 mg PO Q8H PRN (Reason: nausea and vomiting) Qty: 10 0RF ciprofloxacin HCl 500 mg tablet 500 mg PO BID Qty: 14 0RF doxycycline hyclate 100 mg capsule 100 mg PO BID 7 Days Qty: 14 0RF Referrals: Mignon King MD [Primary Care Provider] - Interventions: ED Discharge Assessment Last Done: 08/07/24 19:44 Discharge Date/Time: 08/07/24 19:44 Print Language: Thai
[2024-08-07 18:09] LABS: Appearance Urine Turbid; Color Urine Yellow; Glucose Urine UA Negative (Negative); Leukocyte Esterase Urine Negative (Negative); Nitrite Urine Negative (Negative); PH 8.5 (5.0-9.0); Urine Blood Negative (Negative); Urine Ketones Negative (Negative); Urine Protein Negative (Neg-Trace)
[2024-08-07 18:12] LABS: UPreg QC Valid YES; Urine Pregnancy NEGATIVE (NEGATIVE)
[2024-08-07 18:46] VITALS: BP 115/54; PULSE 72; RESP 16; TEMP 36.8; O2SAT 99
--- NOTE | 2024-08-07 19:01 | ED_ITS ---
HPI - Female Genitourinary General Chief complaint: Urogenital-Female Stated complaint: Yeast infection? Time Seen by Provider: 08/07/24 17:52 Source: patient and old records reviewed Mode of arrival: ambulatory Limitations: no limitations History of Present Illness ED Provider: Dyana Mckenna PA-C HPI Narrative: 23 yo F with a PMH of HSV presents to the ED today with vaginal discharge, itch ing, and pain with urination x3 days. Patient reports white, nonfoul smelling discharge as well as vaginal itching for 3 days. She reports having unprotected sexual intercourse 5 days ago with symptoms starting 1-2 days after. She urinated within 30 minutes of intercourse. She also reports missing 3 days worth of doses of her valacyclovir while on vacation, which she takes daily for herpes prophylaxis. She currently only has 1 new partner and wants to just get checked out . Endorses mild abdominal pain and discomfort since this AM. Denies n/v/d, vaginal bleeding, painful intercourse, rashes. MD elicited complaint: vaginal discharge Onset (ago): day(s) Location of symptoms: vaginal Severity: moderate Female Urogenital Radiation: Suprapubic Consistency: constant Vaginal discharge: white and creamy Vaginal bleeding: none Urinary symptoms: Dysuria Exacerbating factors: none Treatment prior to arrival: none Sexual activity: Yes and New Sexual Partners Patient : No Related Data Previous Rx's ?Medication ?Instructions ?Recorded cephalexin 500 mg capsule 500 mg PO QID 7 days #28 caps 03/15/22 valacyclovir 1 gram tablet 1,000 mg PO BID 7 days #14 tabs 03/15/22 (Valtrex) cephalexin 500 mg capsule 500 mg PO QID 7 days #28 caps 05/31/22 ibuprofen 600 mg tablet 600 mg PO Q8H 14 days #42 tabs 05/31/22 valacyclovir 1 gram tablet 1,000 mg PO BID 7 days #14 tabs 05/31/22 ciprofloxacin HCl 500 mg tablet 500 mg PO BID #14 tabs 12/01/23 ondansetron 4 mg disintegrating 4 mg PO Q8H PRN nausea and 12/01/23 tablet vomiting #10 tabs doxycycline hyclate 100 mg capsule 100 mg PO BID 7 days #14 caps 01/09/24 cephalexin 500 mg capsule 500 mg PO QID #28 caps 05/25/24 fluconazole 150 mg tablet 150 mg PO Q3D 2 doses #2 tabs 05/25/24 fluconazole 150 mg tablet 150 mg PO Q3D 1 dose #1 tab 06/13/24 metronidazole 500 mg tablet 500 mg PO BID 7 days #14 tabs 06/13/24 clotrimazole 2 % vaginal cream 1 appful vaginal BEDTIME 3 days 06/15/24 (Clotrimazole 3 Day) #21 grams bacitracin 500 unit/gram topical 1 appl topical TID #30 grams 07/31/24 ointment doxycycline monohydrate 100 mg 100 mg PO BID #13 caps 08/07/24 capsule fluconazole 150 mg tablet 150 mg PO ONCE 1 dose #1 tab 08/07/24 metronidazole 500 mg tablet 500 mg PO BID #13 tabs 08/07/24 Allergies Allergy/AdvReac Type Severity Reaction Status Date / Time No Known Allergies Allergy Verified 08/07/24 15:38 Review of Systems Review of Systems: Yes all other systems are reviewed and are negative [facility] Social History Social History Advance Directives: No Advance Directives Information Provided: No Do you have a plan to hurt others: No Plan Patient : No Physical Exam Vital Signs: Vital Signs: Last Vital Signs Temp 98.1 F 08/07/24 19:44 Pulse 73 08/07/24 19:44 Resp 16 08/07/24 19:44 BP 118/56 L 08/07/24 19:44 Pulse Ox 99 08/07/24 19:44 O2 Del Method Room Air 08/07/24 19:44 BMI result Body Mass Index 22.8 Appearance: Alert. Oriented X3. No acute distress. Pleasant female sitting on stretcher. Head: normocephalic, atraumatic. Eyes: Pupils equal, round and reactive to light. ENT: No external abnormalities. Neck: Normal inspection. Neck supple. CVS: Normal heart rate and rhythm. Pulses normal. Respiratory: No respiratory distress. Breath sounds normal. Abdomen: Soft and nontender. : Normal external inspection, no vaginal lesions or ulcerations. Vaginal canal with moderate amount of thin, creamy white discharge, no bleeding. No CMT. Skin: Skin warm and dry. Normal skin color. Normal skin turgor. No rashes. Extremities: No lower extremity edema. No joint swelling. Neuro/psych: Oriented X 3. No motor deficit. No sensory deficit. CN II-XII grosslyintact. Normal speech and cognition. : External Female Exam: normal external appearance Speculum Exam - Vagina: normal appearance of the vagina and abnormal vaginal discharge (moderate amount of white, thin, creamy appearing vaginal discharge ) white Speculum Exam - Cervix: normal appearance of the cervix Medications Administered Discontinued Medications Generic Name Dose Route Start Last Admin Trade Name Rayna PRN Reason Stop Dose Admin Ceftriaxone Sodium 250 mg/ 0 mg 08/07/24 18:58 08/07/24 19:19 Lidocaine HCl 0.9 ml IM 08/07/24 18:59 1 kit ONCE ONE Administration Doxycycline Monohydrate 100 mg 08/07/24 18:58 08/07/24 19:19 Doxycycline Monohydrate 100 Mg Capsule PO 08/07/24 18:59 100 mg ONCE ONE Administration Fluconazole 150 mg 08/07/24 18:58 08/07/24 19:19 Fluconazole 150 Mg Tablet PO 08/07/24 18:59 150 mg ONCE ONE Administration Metronidazole 500 mg 08/07/24 18:58 08/07/24 19:19 Metronidazole 500 Mg Tablet PO 08/07/24 18:59 500 mg ONCE ONE Administration Medical Decision Making Medical Decision Making MDM Narrative: 23-year-old female with history of genital herpes, history of UTIs in the past who presents to the ER for evaluation of thick white vaginal discharge for the last 3 days. She reports symptoms are similar to when she had a yeast infection 1 month ago. She did have unprotected sexual intercourse with a new partner and would like to get tested and treated today. Exam is consistent with possible BV verses yeast infection. Will empirically treat. Patient counseled to access her records with the patient portal which she agrees to do. Will send home with oral anti biotics and antifungals for empiric treatment of STIs and yeast. No evidence of PID. No need for imaging today. UA is negative for and infection. Encouraged follow-up with her OBGYN. Stable for discharge home. Patient agrees with plan. All questions were answered. Differential Diagnosis Differential Diagnoses: The differential diagnosis associated with the presentation includes STI, cervicitis, BV, yeast infection, UTI, PID Lab Data MDM Lab Attestation statement: I reviewed the patient's lab results. Negative for infection and Labs: Lab Results 09/26/24 Range/Units 18:02 Urine Color Yellow Urine Appearance Turbid Urine pH 8.5 (5.0-9.0) Ur Specific Rosalie 1.020 (1.005-1.025) Urine Protein Negative (Neg-Trace) mg/dL Urine Glucose (UA) Negative (Negative) mg/dL Urine Ketones Negative (Negative) mg/dL Urine Blood Negative (Negative) Urine Nitrite Negative (Negative) Ur Leukocyte Esterase Negative (Negative) Urine Test NEGATIVE (NEGATIVE) External Record Review External record reviewed: Outpatient record, Prior outpatient labs and Prior outpatient radiology Tests considered The following testing was considered but not selected: Pelvic ultrasound considered, low suspicion for TOA Prescription Management I considered prescription management with: Antibiotic Chronic Conditions Patient?s care impacted by: Other (HSV) Critical Care Time Critical Care Time Critical Care Time: No Discharge Plan Discharge Clinical Impression: Vaginal discharge Patient Disposition: Home, Self-Care Instructions: Vaginal Discharge (ED) Additional Instructions: Your urine test was negative for infection and . Your examination was most consistent with either bacterial vaginosis or yeast infection. Your given 1st doses of antibiotics and antifungal medications here in the emergency department today. Next doses are not due until tomorrow morning. Recommend following up with your results on the patient portal. If your Gardnerella test comes back negative this means you do not have BV and you can stop the metronidazole. If your chlamydia comes back negative it means you do not have chlamydia and you can stop the doxycycline. Otherwise if you are unable to check the results, recommend continuing the prescribed antibiotics to completion. Take the fluconazole antifungal medicine for yeast infection in 3 days. Your given 1st dose today. This is only a 2 pill treatment. Do not have sex until all of your symptoms resolved in your completely off of antibiotics. Follow-up with your OBGYN. Prescriptions: New metronidazole 500 mg tablet 500 mg PO BID Qty: 13 0RF doxycycline monohydrate 100 mg capsule 100 mg PO BID Qty: 13 0RF fluconazole 150 mg tablet 150 mg PO ONCE Qty: 1 0RF Rx Instructions: administer on day 3 of therapy No Action valacyclovir 1 gram tablet 1,000 mg PO BID 7 Days Qty: 14 0RF cephalexin 500 mg capsule 500 mg PO QID 7 Days Qty: 28 0RF ibuprofen 600 mg tablet 600 mg PO Q8H 14 Days Qty: 42 0RF cephalexin 500 mg capsule 500 mg PO QID 7 Days Qty: 28 0RF valacyclovir [Valtrex] 1 gram tablet 1,000 mg PO BID 7 Days Qty: 14 0RF cephalexin 500 mg capsule 500 mg PO QID Qty: 28 0RF fluconazole 150 mg tablet 150 mg PO Q3D Qty: 2 0RF Rx Instructions: may repeat second dose 72 hrs after first dose if symptoms persist fluconazole 150 mg tablet 150 mg PO Q3D Qty: 1 0RF Rx Instructions: Take on 06/16/2024 metronidazole 500 mg tablet 500 mg PO BID 7 Days Qty: 14 0RF Clotrimazole 3 Day 2 % cream 1 appful vaginal BEDTIME 3 Days Qty: 21 0RF bacitracin 500 unit/gram ointment 1 appl topical TID Qty: 30 0RF ondansetron 4 mg tablet,disintegrating 4 mg PO Q8H PRN (Reason: nausea and vomiting) Qty: 10 0RF ciprofloxacin HCl 500 mg tablet 500 mg PO BID Qty: 14 0RF doxycycline hyclate 100 mg capsule 100 mg PO BID 7 Days Qty: 14 0RF Referrals: Mignon King MD [Primary Care Provider] - Interventions: ED Discharge Assessment Last Done: 08/07/24 19:44 Discharge Date/Time: 08/07/24 19:44 Print Language: Armenian
[2024-08-07] MEDS: Doxycycline Monohydrate 100 MG CAPSULE PO (19:19)
[2024-08-07] MEDS: metroNIDAZOLE 500 MG TABLET PO (19:19)
[2024-08-07] MEDS: Fluconazole 150 MG TABLET PO (19:19)
[2024-08-07] MEDS: cefTRIAXone sodium 250 MG, Lidocaine HCl 1 % MPF 0.9 ML IM (19:19)
[2024-08-07 19:44] VITALS: BP 118/56; PULSE 73; RESP 16; TEMP 36.7; O2SAT 99
--- NOTE | 2024-08-07 19:44 | PC.NURSE ---
internal exam performed by providers, pt medicated per order
[2024-08-08 05:32] LABS: CT PCR DETECTED (Not Detect.); NG PCR NOT DETECTED (Not Detect.)
[2024-08-08 10:43] LABS: Bacterial Vaginosis PCR POSITIVE (Negative); Candida Group PCR NOT DETECTED (Not Detect); Candida glab krusei PCR NOT DETECTED (Not Detect); Trichomonas vaginalis PCR NOT DETECTED (Not Detect)
== END 2024-08-07 19:44 | disposition home or self-care (01) ==
PROVIDERS: Physician Assistant; Emergency Provider Internal Medicine; PCP Student in an Organized Health Care Education/Training Program
DX: A74.9 Chlamydial infection, unspecified (principal); N76.0 Acute vaginitis; L29.2 Pruritus vulvae; R30.0 Dysuria; Z20.2 Contact with and (suspected) exposure to infections with a predominantly sexual mode of transmission; Z79.899 Other long term (current) drug therapy
CPT/HCPCS: 0352U; 81003; 81025; 87491; 87591; 96372; 99283; 99284; J0696

== ENCOUNTER 2024-09-01 10:12 | Outpatient (REF) | payer MEDICAID, SELFPAY ==
[2024-09-01 12:33] LABS: Alanine Aminotransferase 18 U/L (0-31); Albumin Level 4.4 g/dL (3.5-5.0); Alkaline Phosphatase 56 U/L (39-117); Aspartate Amino Transferase 27 U/L (5-31); Bilirubin Direct 0.1 mg/dL (0.0-0.5); Bilirubin Total 0.3 mg/dL (0.0-1.0); Total Protein 7.2 g/dL (6.5-8.0)
[2024-09-01 12:55] LABS: HIV AB/AG Nonreactive (Nonreactive); HIV Num 1 0.04 S/CO (0.00-0.99)
[2024-09-01 13:03] LABS: Syphilis Screen Nonreactive (Nonreactive); ~HepC Num1 0.12 S/CO (0.00-0.79); ~Hepatitis C Antibody Nonreactive (Nonreactive)
[2024-09-03 15:59] LABS: HIV RNA PCR Qn Copies NOT DETECTED copies/mL (NOT DETECTED); HIV RNA PCR Qn Log Copies NOT DETECTED (NOT DETECTED)
== END 2024-09-01 10:13 | disposition home or self-care (01) ==
LOC: HO.HHCL 10:12
PROVIDERS: PCP Student in an Organized Health Care Education/Training Program; Visit Provider Advanced Practice Midwife
DX: Z79.899 Other long term (current) drug therapy (principal); Z11.3 Encounter for screening for infections with a predominantly sexual mode of transmission
CPT/HCPCS: 36415; 80076; 86780; 86803; 87389; 87536

== ENCOUNTER 2024-09-08 17:58 | Outpatient (REF) | payer MEDICAID, SELFPAY ==
[2024-09-09 03:18] LABS: CT PCR NOT DETECTED (Not Detect.); NG PCR NOT DETECTED (Not Detect.)
== END 2024-09-08 17:59 | disposition home or self-care (01) ==
LOC: HO.HHCLNP 17:58
PROVIDERS: Visit Provider Advanced Practice Midwife
DX: R35.0 Frequency of micturition (principal); Z11.3 Encounter for screening for infections with a predominantly sexual mode of transmission
CPT/HCPCS: 87086; 87491; 87591

== ENCOUNTER 2024-10-30 10:57 | Outpatient (REF) | payer MEDICAID, SELFPAY ==
[2024-10-30 13:57] LABS: Syphilis Screen Nonreactive (Nonreactive)
[2024-10-30 14:07] LABS: HIV AB/AG Nonreactive (Nonreactive); HIV Num 1 0.05 S/CO (0.00-0.99)
[2024-10-31 03:38] LABS: CT PCR NOT DETECTED (Not Detect.); NG PCR NOT DETECTED (Not Detect.)
[2024-10-31 13:11] LABS: Bacterial Vaginosis PCR POSITIVE (Negative); Candida Group PCR NOT DETECTED (Not Detect); Candida glab krusei PCR NOT DETECTED (Not Detect); Trichomonas vaginalis PCR NOT DETECTED (Not Detect)
[2024-11-04 05:23] LABS: C. Trachomatis RNA TMA, Throat NOT DETECTED; N. gonorrhoeae RNA TMA, Throat NOT DETECTED
== END 2024-10-30 10:58 | disposition home or self-care (01) ==
LOC: HO.HHCL 10:57
PROVIDERS: Visit Provider Advanced Practice Midwife
DX: Z11.3 Encounter for screening for infections with a predominantly sexual mode of transmission (principal); R39.9 Unspecified symptoms and signs involving the genitourinary system
CPT/HCPCS: 0352U; 36415; 86780; 87086; 87389; 87491; 87591

== ENCOUNTER 2024-12-31 19:54 | Emergency (ER) | payer MEDICAID, SELFPAY ==
[2024-12-31 20:05] VITALS: BP 124/65; PULSE 77; RESP 16; TEMP 36.9; O2SAT 100; BMI 21.0
--- NOTE | 2024-12-31 20:05 | ED.GENADULT ---
HPI - General Adult General Chief complaint: Abdominal Pain Stated complaint: abd pain, vag discharge Related Data Previous Rx's ?Medication ?Instructions ?Recorded cephalexin 500 mg capsule 500 mg PO QID 7 days #28 caps 03/15/22 valacyclovir 1 gram tablet 1,000 mg PO BID 7 days #14 tabs 03/15/22 (Valtrex) cephalexin 500 mg capsule 500 mg PO QID 7 days #28 caps 05/31/22 ibuprofen 600 mg tablet 600 mg PO Q8H 14 days #42 tabs 05/31/22 valacyclovir 1 gram tablet 1,000 mg PO BID 7 days #14 tabs 05/31/22 ciprofloxacin HCl 500 mg tablet 500 mg PO BID #14 tabs 12/01/23 ondansetron 4 mg disintegrating 4 mg PO Q8H PRN nausea and 12/01/23 tablet vomiting #10 tabs doxycycline hyclate 100 mg capsule 100 mg PO BID 7 days #14 caps 01/09/24 cephalexin 500 mg capsule 500 mg PO QID #28 caps 05/25/24 fluconazole 150 mg tablet 150 mg PO Q3D 2 doses #2 tabs 05/25/24 fluconazole 150 mg tablet 150 mg PO Q3D 1 dose #1 tab 06/13/24 clotrimazole 2 % vaginal cream 1 appful vaginal BEDTIME 3 days 06/15/24 (Clotrimazole 3 Day) #21 grams bacitracin 500 unit/gram topical 1 appl topical TID #30 grams 07/31/24 ointment doxycycline monohydrate 100 mg 100 mg PO BID #13 caps 08/07/24 capsule doxycycline hyclate 100 mg tablet 100 mg PO BID #13 tabs 01/02/25 metronidazole 500 mg tablet 500 mg PO BID 7 days #14 tabs 01/09/25 Allergies Allergy/AdvReac Type Severity Reaction Status Date / Time No Known Allergies Allergy Verified 01/08/25 21:36 PMFSH Social History Social History Smoked in Last 30 Days: No Use of substances other than those prescribed or required for medical reasons: No Advance Directives: No Advance Directives Information Provided: Yes Do you have a plan to hurt others: No Plan Physical Exam ED Vital Signs: BMI result Body Mass Index 21.0 Course Course Course Narrative: RME, this is a rapid medical exam performed by Haim Jones please refer to primary provider for complete H&P- 24-year-old female presents for evaluation of lower abdominal pain and vaginal bleeding she reports vaginal spotting for the last 2 months. She did get 1 shot of medroxyprogesterone in August and did not get any additional shots due to vaginal bleeding. She reports that she has not been sexually active for about 2 months. Plan for labs including testing Medical Decision Making Lab Data 12/31/24 21:28 12/31/24 21:28 Labs: Lab Results 12/31/24 Range/Units 21:28 WBC 5.4 (4.8-10.8) X10*3/uL RBC 4.33 (4.20-5.50) X10*6/uL Hgb 12.2 (12.0-16.0) g/dl Hct 37.2 (37.0-47.0) % MCV 85.9 (80.0-98.0) fL MCH 28.2 (27.0-33.0) pg MCHC 32.8 (31.0-35.0) g/dl RDW 12.0 (11.0-16.0) % Plt Count 232 (160-400) X10*3/uL MPV 9.4 (9.4-12.3) fL Immature Gran % (Auto) 0.2 (0.0-0.4) % Neut % (Auto) 55.0 (45-73) % Lymph % (Auto) 36.3 (20-40) % [place] % (Auto) 7.2 (2-11) % Eos % (Auto) 0.9 (0-4) % Baso % (Auto) 0.4 (0-2) % Lymph # (Auto) 2.0 (1.2-4.9) X10*3/uL [place] # (Auto) 0.4 (0.1-1.2) X10*3/uL Eos # (Auto) 0.1 (0.0-0.4) X10*3/uL Baso # (Auto) 0.0 (0.0-0.2) X10*3/uL Abs Immat Gran (auto) 0.01 (0.00-0.03) X10*3/uL Absolute Neuts (auto) 3.0 (2.0-8.3) x10*3/uL Absolute Nucleated RBC 0.000 (0.0-0.012) X10*3/uL Nucleated RBC % (auto) 0.0 (0.0-0.2) /100WBC PT 12.1 (10.9-12.4) SEC INR 1.0 (0.9-1.1) Sodium 140 (135-145) mmol/L Potassium 4.1 (3.3-5.1) mmol/L Chloride 107 (96-108) mmol/L Carbon Dioxide 25 (22-29) mmol/L Anion Gap 12 (12-20) BUN 18 H (9-16) mg/dL Creatinine 0.88 (0.5-1.4) mg/dL Estim Creat Clear Calc 75.7 Estimated GFR > 60 Random Glucose 107 (60-115) mg/dL Calcium 9.4 (8.4-10.2) mg/dL Total Bilirubin 0.2 (0.0-1.0) mg/dL AST 24 (5-31) U/L ALT 18 (0-31) U/L Alkaline Phosphatase 53 (39-117) U/L Total Protein 8.0 (6.5-8.0) g/dL Albumin 4.7 (3.5-5.0) g/dL Lipase 18 (8-78) U/L Beta HCG, Quant < 2 mIU/mL Discharge Plan Discharge Clinical Impression: Abdominal pain Patient Disposition: Left W/O Completing Treatment Prescriptions: No Action valacyclovir 1 gram tablet 1,000 mg PO BID 7 Days Qty: 14 0RF cephalexin 500 mg capsule 500 mg PO QID 7 Days Qty: 28 0RF ibuprofen 600 mg tablet 600 mg PO Q8H 14 Days Qty: 42 0RF cephalexin 500 mg capsule 500 mg PO QID 7 Days Qty: 28 0RF valacyclovir [Valtrex] 1 gram tablet 1,000 mg PO BID 7 Days Qty: 14 0RF cephalexin 500 mg capsule 500 mg PO QID Qty: 28 0RF fluconazole 150 mg tablet 150 mg PO Q3D Qty: 2 0RF Rx Instructions: may repeat second dose 72 hrs after first dose if symptoms persist fluconazole 150 mg tablet 150 mg PO Q3D Qty: 1 0RF Rx Instructions: Take on 06/16/2024 Clotrimazole 3 Day 2 % cream 1 appful vaginal BEDTIME 3 Days Qty: 21 0RF bacitracin 500 unit/gram ointment 1 appl topical TID Qty: 30 0RF doxycycline monohydrate 100 mg capsule 100 mg PO BID Qty: 13 0RF doxycycline hyclate 100 mg tablet 100 mg PO BID Qty: 13 0RF ondansetron 4 mg tablet,disintegrating 4 mg PO Q8H PRN (Reason: nausea and vomiting) Qty: 10 0RF ciprofloxacin HCl 500 mg tablet 500 mg PO BID Qty: 14 0RF doxycycline hyclate 100 mg capsule 100 mg PO BID 7 Days Qty: 14 0RF metronidazole 500 mg tablet 500 mg PO BID 7 Days Qty: 14 0RF Discharge Date/Time: 01/01/25 05:01
[2024-12-31 21:36] LABS: MANUAL DIFF FLAG NO
[2024-12-31 21:39] LABS: Basophils Percent Auto 0.4 % (0-2); Eosinophils Absolute Auto 0.1 X10*3/uL (0.0-0.4); Eosinophils Percent Auto 0.9 % (0-4); Hematocrit 37.2 % (37.0-47.0); Hemoglobin 12.2 g/dl (12.0-16.0); Imm Gran Abs Auto 0.01 X10*3/uL (0.00-0.03); Imm Gran Pct Auto 0.2 % (0.0-0.4); Lymphocytes Percent Auto 36.3 % (20-40); Mean Corpuscular HGB Conc 32.8 g/dl (31.0-35.0); Mean Corpuscular Hemoglobin 28.2 pg (27.0-33.0); Mean Corpuscular Volume 85.9 fL (80.0-98.0); Mean Platelet Volume 9.4 fL (9.4-12.3); Monocytes Absolute Auto 0.4 X10*3/uL (0.1-1.2); Monocytes Percent Auto 7.2 % (2-11); Platelet Count 232 X10*3/uL (160-400); Red Blood Count 4.33 X10*6/uL (4.20-5.50); White Blood Count 5.4 X10*3/uL (4.8-10.8)
[2024-12-31 21:44] LABS: Prothrombin Time 12.1 SEC (10.9-12.4)
[2024-12-31 22:01] LABS: Alanine Aminotransferase 18 U/L (0-31); Albumin Level 4.7 g/dL (3.5-5.0); Alkaline Phosphatase 53 U/L (39-117); Anion Gap 12 (12-20); Aspartate Amino Transferase 24 U/L (5-31); Bilirubin Total 0.2 mg/dL (0.0-1.0); Blood Urea Nitrogen 18 mg/dL (9-16); Calcium 9.4 mg/dL (8.4-10.2); Carbon Dioxide 25 mmol/L (22-29); Chloride 107 mmol/L (96-108); Creatinine Clr Calc Pharmacy 75.7; Estimated Glomerular Filt Rate > 60; Glucose Random 107 mg/dL (60-115); Lipase 18 U/L (8-78); Potassium 4.1 mmol/L (3.3-5.1); Sodium 140 mmol/L (135-145)
[2024-12-31 22:08] LABS: HCG Quantitative < 2 mIU/mL
== END 2025-01-01 05:01 | disposition left against medical advice (07) ==
PROVIDERS: Physician Assistant; Emergency Provider Emergency Medicine Emergency Medical Services; PCP Student in an Organized Health Care Education/Training Program
DX: R10.30 Lower abdominal pain, unspecified (principal); N93.9 Abnormal uterine and vaginal bleeding, unspecified
CPT/HCPCS: 36415; 80053; 83690; 84702; 85025; 85610; 99281; 99283

== ENCOUNTER 2025-01-02 13:47 | Emergency (ER) | payer MEDICAID, SELFPAY ==
--- NOTE | ~2025-01-02 | XR_ITS ---
EXAMINATION: XR ABDOMEN KUB CLINICAL INDICATION: pain COMPARISON: None available. TECHNIQUE: AP view of the abdomen. FINDINGS: The bowel gas pattern is normal with no evidence of ileus or obstruction. No unusual soft tissue calcifications are noted. The bones are unremarkable. XR/XR KUB IMPRESSION: Unremarkable examination. Electronically signed by: Aung Farnsworth MD 01/02/2025 03:01 PM [facility]
[2025-01-02 14:16] VITALS: BP 139/86; PULSE 89; RESP 18; TEMP 36.7; O2SAT 98; BMI 21.0
--- NOTE | 2025-01-02 14:19 | ED_ITS ---
HPI - General Adult General Chief complaint: Urogenital-Female Stated complaint: Abd pain Time Seen by Provider: 01/02/25 21:01 Source: patient Mode of arrival: ambulatory Limitations: no limitations History of Present Illness ED Provider: Dr. Joie Rivera HPI narrative: Patient comes to the emergency room complaining of 2 weeks of lower abdominal pain. Patient states that she has noted that she has more abdominal pain since she stopped smoking marijuana. Patient reports that she has been having some vaginal discharge, believes it is pinkish. No blood. No spotting. Patient denies any fever chills, denies hematuria or dysuria. Patient concerned about possibly having a sexually transmitted disease. Related Data Previous Rx's ?Medication ?Instructions ?Recorded cephalexin 500 mg capsule 500 mg PO QID 7 days #28 caps 03/15/22 valacyclovir 1 gram tablet 1,000 mg PO BID 7 days #14 tabs 03/15/22 (Valtrex) cephalexin 500 mg capsule 500 mg PO QID 7 days #28 caps 05/31/22 ibuprofen 600 mg tablet 600 mg PO Q8H 14 days #42 tabs 05/31/22 valacyclovir 1 gram tablet 1,000 mg PO BID 7 days #14 tabs 05/31/22 ciprofloxacin HCl 500 mg tablet 500 mg PO BID #14 tabs 12/01/23 ondansetron 4 mg disintegrating 4 mg PO Q8H PRN nausea and 12/01/23 tablet vomiting #10 tabs doxycycline hyclate 100 mg capsule 100 mg PO BID 7 days #14 caps 01/09/24 cephalexin 500 mg capsule 500 mg PO QID #28 caps 05/25/24 fluconazole 150 mg tablet 150 mg PO Q3D 2 doses #2 tabs 05/25/24 fluconazole 150 mg tablet 150 mg PO Q3D 1 dose #1 tab 06/13/24 metronidazole 500 mg tablet 500 mg PO BID 7 days #14 tabs 06/13/24 clotrimazole 2 % vaginal cream 1 appful vaginal BEDTIME 3 days 06/15/24 (Clotrimazole 3 Day) #21 grams bacitracin 500 unit/gram topical 1 appl topical TID #30 grams 07/31/24 ointment doxycycline monohydrate 100 mg 100 mg PO BID #13 caps 08/07/24 capsule fluconazole 150 mg tablet 150 mg PO ONCE 1 dose #1 tab 08/07/24 metronidazole 500 mg tablet 500 mg PO BID #13 tabs 08/07/24 doxycycline hyclate 100 mg tablet 100 mg PO BID #13 tabs 01/02/25 Allergies Allergy/AdvReac Type Severity Reaction Status Date / Time No Known Allergies Allergy Verified 01/02/25 14:19 Review of Systems 2 Review of Systems: Constitutional : No Weight loss, No Fever, No Chills, No Night Sweats, No Fatigue, No Malaise ENT/Mouth : No Hearing loss, No Ear Pain, No Nasal Congestion, No Sinus Pain, No Hoarseness, No sore throat, No Rhinorrhea, No Swallowing Difficulty Eyes: No Eye Pain, No Swelling, No Redness, No Foreign Body, No Discharge, No Vision Changes Cardiovascular : No Chest Pain, No SOB, No Dyspnea on Exertion, No Orthopnea, No Edema, No Palpitations Respiratory : No Cough, No Sputum, No Wheezing, No Smoke Exposure, No Dyspnea Gastrointestinal : No Nausea, No Vomiting, No Diarrhea, No Constipation, complaining of intermittent abdominal cramping, No abdominal Pain, No Hematochezia, No Melena Genitourinary : Complaining of whitish/pinkish vaginal discharge, no dysuria Musculoskeletal : No joint pain, No Myalgias, No Joint Swelling Skin : No Skin Lesions, No rash Neuro : No Weakness, No Numbness, No Paresthesias, No Loss of Consciousness, No Dizziness, No Headache Psych : No Anxiety/Panic, No Depression, No SI/HI/AH/VH, No Social Issues, Heme/Lymph: No Bruising, No Bleeding,No Lymphadenopathy Endocrine : No Polyuria, No Polydipsia, No Temperature Intolerance COUNTS INCLUDE 234 BEDS AT THE [facility] Social History Social History Advance Directives: No Advance Directives Information Provided: No Do you have a plan to hurt others: No Plan Physical Exam ED Vital Signs: Vital Signs - 24 hr 01/02/25 14:16 01/02/25 20:20 Temperature 98.1 F 98.9 F Pulse Rate 89 78 Respiratory Rate 18 20 Blood Pressure 139/86 112/65 Pulse Oximetry 98 100 Oxygen Delivery Method Room Air Room Air BMI result Body Mass Index 21.0 Const Other: Appearance: Alert. Oriented X3. No acute distress. Eyes: Pupils equal, round and reactive to light. ENT: Pharynx normal. Neck: Normal inspection. Neck supple. No lymph nodes noted. No crepitus CVS: Normal heart rate and rhythm. Pulses normal. Normal S1 and S2 Respiratory: No respiratory distress. Breath sounds normal. No Wheezing. No rales Abdomen: Soft and nontender. No rigidity. No distention. Skin: Skin warm and dry. Normal skin color. Normal skin turgor. Extremities: No lower extremity edema. No Lacerations. No Rash Neuro: Oriented X 3. No motor deficit. No sensory deficit. Moving all extremities. No slurred speech. CN 2 through 12 grossly intact Psych: calm, cooperative, normal affect Course Course Course Narrative: This is a rapid medical exam performed by Ramona Tejeda PA-C. Patient is a 24-year-old female who presents with abdominal pain x2 weeks. We will be screening basic labs and a KUB. The patient is stable and can return to the waiting room pending her full medical assessment. Medical Decision Making Medical Decision Making MDM Narrative: Patient's physical exam was unremarkable. No pain to palpation in any quadrant of the abdomen My interpretation of labs: Patient's hematology and chemistry unremarkable, hCG negative, urinalysis negative Patient was provided with the swabs, she prefers to swab herself Patient requesting to be treated empirically for STDs. Patient was given the 1st dose of ceftriaxone and doxycycline in the emergency room. Patient aware that if she tests positive for any of the STDs and/or bacterial vaginosis, she will receive a phone call at home and medications will be sent to her pharmacy. For now, patient will continue treatment with doxycycline A KUB was ordered today by the triage provider, unremarkable Lab Data [facility] Lab Attestation statement: I reviewed the patient's lab results. 01/02/25 14:34 01/02/25 14:34 Labs: Lab Results 01/02/25 Range/Units 14:34 WBC 5.9 (4.8-10.8) X10*3/uL RBC 4.82 (4.20-5.50) X10*6/uL Hgb 13.4 (12.0-16.0) g/dl Hct 41.6 (37.0-47.0) % MCV 86.3 (80.0-98.0) fL MCH 27.8 (27.0-33.0) pg MCHC 32.2 (31.0-35.0) g/dl RDW 11.9 (11.0-16.0) % Plt Count 248 (160-400) X10*3/uL MPV 9.2 L (9.4-12.3) fL Immature Gran % (Auto) 0.2 (0.0-0.4) % Neut % (Auto) 68.8 (45-73) % Lymph % (Auto) 24.4 (20-40) % [place] % (Auto) 5.8 (2-11) % Eos % (Auto) 0.5 (0-4) % Baso % (Auto) 0.3 (0-2) % Lymph # (Auto) 1.4 (1.2-4.9) X10*3/uL [place] # (Auto) 0.3 (0.1-1.2) X10*3/uL Eos # (Auto) 0.0 (0.0-0.4) X10*3/uL Baso # (Auto) 0.0 (0.0-0.2) X10*3/uL Abs Immat Gran (auto) 0.01 (0.00-0.03) X10*3/uL Absolute Neuts (auto) 4.1 (2.0-8.3) x10*3/uL Absolute Nucleated RBC 0.000 (0.0-0.012) X10*3/uL Nucleated RBC % (auto) 0.0 (0.0-0.2) /100WBC Sodium 138 (135-145) mmol/L Potassium 3.9 (3.3-5.1) mmol/L Chloride 105 (96-108) mmol/L Carbon Dioxide 27 (22-29) mmol/L Anion Gap 10 L (12-20) BUN 15 (9-16) mg/dL Creatinine 1.03 (0.5-1.4) mg/dL Estim Creat Clear Calc 64.6 Estimated GFR > 60 Random Glucose 97 (60-115) mg/dL Calcium 9.7 (8.4-10.2) mg/dL Magnesium 2.2 (1.6-2.6) mg/dL Total Bilirubin 0.3 (0.0-1.0) mg/dL AST 23 (5-31) U/L ALT 19 (0-31) U/L Alkaline Phosphatase 58 (39-117) U/L Total Protein 8.6 H (6.5-8.0) g/dL Albumin 4.8 (3.5-5.0) g/dL Beta HCG, Quant < 2 mIU/mL Urine Color Yellow Urine Appearance Clear Urine pH 7.5 (5.0-9.0) Ur Specific [place] 1.025 (1.005-1.025) Urine Protein Negative (Neg-Trace) mg/dL Urine Glucose (UA) Negative (Negative) mg/dL Urine Ketones Trace (Negative) mg/dL Urine Blood Negative (Negative) Urine Nitrite Negative (Negative) Ur Leukocyte Esterase Negative (Negative) Independent Interpretation I performed an independent interpretation of an: Plain X-Ray Radiology Impression Discussion of test interpretation with radiology: I have reviewed the radiologist's reading. Radiologist Impression: The bowel gas pattern is normal with no evidence of ileus or obstruction. No unusual soft tissue calcifications are noted. The bones are unremarkable Discharge Plan Discharge Clinical Impression: Abdominal discomfort, Concern about STD in female without diagnosis Patient Disposition: Home, Self-Care Instructions: Safe Sex Practices (ED), Abdominal Pain (ED) Additional Instructions: Please follow-up with your primary care physician tomorrow. If you have any worsening or new symptoms, please return to the emergency room or call 911 Prescriptions: New doxycycline hyclate 100 mg tablet 100 mg PO BID Qty: 13 0RF No Action valacyclovir 1 gram tablet 1,000 mg PO BID 7 Days Qty: 14 0RF cephalexin 500 mg capsule 500 mg PO QID 7 Days Qty: 28 0RF ibuprofen 600 mg tablet 600 mg PO Q8H 14 Days Qty: 42 0RF cephalexin 500 mg capsule 500 mg PO QID 7 Days Qty: 28 0RF valacyclovir [Valtrex] 1 gram tablet 1,000 mg PO BID 7 Days Qty: 14 0RF cephalexin 500 mg capsule 500 mg PO QID Qty: 28 0RF fluconazole 150 mg tablet 150 mg PO Q3D Qty: 2 0RF Rx Instructions: may repeat second dose 72 hrs after first dose if symptoms persist fluconazole 150 mg tablet 150 mg PO Q3D Qty: 1 0RF Rx Instructions: Take on 06/16/2024 metronidazole 500 mg tablet 500 mg PO BID 7 Days Qty: 14 0RF Clotrimazole 3 Day 2 % cream 1 appful vaginal BEDTIME 3 Days Qty: 21 0RF bacitracin 500 unit/gram ointment 1 appl topical TID Qty: 30 0RF metronidazole 500 mg tablet 500 mg PO BID Qty: 13 0RF doxycycline monohydrate 100 mg capsule 100 mg PO BID Qty: 13 0RF fluconazole 150 mg tablet 150 mg PO ONCE Qty: 1 0RF Rx Instructions: administer on day 3 of therapy ondansetron 4 mg tablet,disintegrating 4 mg PO Q8H PRN (Reason: nausea and vomiting) Qty: 10 0RF ciprofloxacin HCl 500 mg tablet 500 mg PO BID Qty: 14 0RF doxycycline hyclate 100 mg capsule 100 mg PO BID 7 Days Qty: 14 0RF Print Language: Citizen Of [place]
[2025-01-02 14:39] LABS: MANUAL DIFF FLAG NO
[2025-01-02 14:40] LABS: Basophils Percent Auto 0.3 % (0-2); Eosinophils Percent Auto 0.5 % (0-4); Hematocrit 41.6 % (37.0-47.0); Hemoglobin 13.4 g/dl (12.0-16.0); Imm Gran Abs Auto 0.01 X10*3/uL (0.00-0.03); Imm Gran Pct Auto 0.2 % (0.0-0.4); Lymphocytes Absolute Auto 1.4 X10*3/uL (1.2-4.9); Lymphocytes Percent Auto 24.4 % (20-40); Mean Corpuscular HGB Conc 32.2 g/dl (31.0-35.0); Mean Corpuscular Hemoglobin 27.8 pg (27.0-33.0); Mean Corpuscular Volume 86.3 fL (80.0-98.0); Mean Platelet Volume 9.2 fL (9.4-12.3); Monocytes Absolute Auto 0.3 X10*3/uL (0.1-1.2); Monocytes Percent Auto 5.8 % (2-11); Neutrophils Absolute Auto 4.1 x10*3/uL (2.0-8.3); Neutrophils Percent Auto 68.8 % (45-73); Platelet Count 248 X10*3/uL (160-400); Red Blood Count 4.82 X10*6/uL (4.20-5.50); Red Cell Distribution Width 11.9 % (11.0-16.0); White Blood Count 5.9 X10*3/uL (4.8-10.8)
[2025-01-02 14:41] LABS: Appearance Urine Clear; Color Urine Yellow; Glucose Urine UA Negative (Negative); Leukocyte Esterase Urine Negative (Negative); Nitrite Urine Negative (Negative); PH 7.5 (5.0-9.0); Specific Gravity - Urine 1.025 (1.005-1.025); Urine Blood Negative (Negative); Urine Ketones Trace mg/dL (Negative); Urine Protein Negative (Neg-Trace)
[2025-01-02 15:02] LABS: Alanine Aminotransferase 19 U/L (0-31); Albumin Level 4.8 g/dL (3.5-5.0); Alkaline Phosphatase 58 U/L (39-117); Anion Gap 10 (12-20); Aspartate Amino Transferase 23 U/L (5-31); Bilirubin Total 0.3 mg/dL (0.0-1.0); Blood Urea Nitrogen 15 mg/dL (9-16); Calcium 9.7 mg/dL (8.4-10.2); Carbon Dioxide 27 mmol/L (22-29); Chloride 105 mmol/L (96-108); Creatinine Clr Calc Pharmacy 64.6; Estimated Glomerular Filt Rate > 60; Glucose Random 97 mg/dL (60-115); HCG Quantitative < 2 mIU/mL; Magnesium 2.2 mg/dL (1.6-2.6); Potassium 3.9 mmol/L (3.3-5.1); Sodium 138 mmol/L (135-145); Total Protein 8.6 g/dL (6.5-8.0)
[2025-01-02 20:20] VITALS: BP 112/65; PULSE 78; RESP 20; TEMP 37.2; O2SAT 100
[2025-01-02] MEDS: Doxycycline Monohydrate 100 MG CAPSULE PO (21:51)
[2025-01-02] MEDS: cefTRIAXone sodium 1 GM, Lidocaine HCl 1 % MPF 2.1 ML IM (21:51)
[2025-01-02 21:58] VITALS: BP 112/65; PULSE 78; RESP 20; TEMP 37.2; O2SAT 100
[2025-01-03 02:32] LABS: CT PCR NOT DETECTED (Not Detect.); NG PCR NOT DETECTED (Not Detect.)
[2025-01-04 09:52] LABS: Bacterial Vaginosis PCR POSITIVE (Negative); Candida Group PCR NOT DETECTED (Not Detect); Candida glab krusei PCR NOT DETECTED (Not Detect); Trichomonas vaginalis PCR NOT DETECTED (Not Detect)
== END 2025-01-02 21:59 | disposition home or self-care (01) ==
PROVIDERS: Physician Assistant Medical; Emergency Provider Emergency Medicine; PCP Student in an Organized Health Care Education/Training Program
DX: N76.0 Acute vaginitis (principal); R10.2 Pelvic and perineal pain; Z20.2 Contact with and (suspected) exposure to infections with a predominantly sexual mode of transmission; Z79.899 Other long term (current) drug therapy
CPT/HCPCS: 36415; 74018; 80053; 81003; 81515; 83735; 84702; 85025; 87491; 87591; 96372; 99282; 99284; J0696; J2003

== ENCOUNTER → 2025-01-02 14:17 | Outpatient (BNV) | payer MEDICAID, SELFPAY | PROVIDERS: PCP Student in an Organized Health Care Education/Training Program; Visit Provider Radiology Diagnostic Radiology | DX: R10.30 Lower abdominal pain, unspecified (principal) | CPT/HCPCS: 74018 ==

== ENCOUNTER 2025-01-08 21:04 | Emergency (ER) | payer MEDICAID, SELFPAY ==
[2025-01-08 21:34] VITALS: BP 106/55; PULSE 73; RESP 16; TEMP 36.9; O2SAT 100; BMI 20.8
[2025-01-09 00:41] VITALS: BP 127/72; PULSE 77; RESP 18; TEMP 36.9; O2SAT 100
--- OUTSIDE RECORDS SUMMARY | 2025-01-09 01:00 | XMS_ITS | Encounter Summary ---
Author Organization [employer] Address [address] [place] [address] [address] [place] [address] Care Team Providers Care Elevator Service Technician Name Role Phone Mignon King MD Primary Care Pro vider Encounter Details Date Type Department Care Team (Late st Contact Info) Description 12/31/2024 Orders Only GENERIC EXTERNAL DATA DEPARTMENT Provider, Generic External Data Social History Tobacco Use Types Packs/Day Years Used Date Smoking Tobacco: Never Passive Smoke Exposure: Never Smokeless Tobacco: Never Alcohol Use Standard Drinks/Week Comments Not Currently 0 (1 standard drink = 0.6 oz pur e alcohol) Social Depression Answer Date Recorded Patient Health Questionnaire-9 Score 4 03/21/2023 Housing Stability Answer Date Recorded What is your housing situation today? I have [place] 12/14/[address] you li ve. Do you have problems with any of the following? None of the above 12/14/2023 Food Insecurity Answer Date Recorded Within the past 12 months, y ou worried that your food would run out before you got money to buy more: Often true 12/14/2023 Within the past 12 months,th e food you bought just didn't last and you didn't have enough money to get more: Often true 12/2023 Transportation Answer Date Recorded In the past 12 months, has l ack of transportation kept you from medical appts, meetings, work or from getting things needed for daily living? No 12/14/2023 Utilities Answer Date Recorded In the past 12 months, has t he electric, gas, oil or water company threatened to shut off services in your home? No 12/14/2023 Depression Answer Date Recorded Patient Health Questionnaire-2 Score 2 03/21/2023 Comments No Sex and Gender Information Value Date Recorded Sex Assigned at Female 09/11/2022 10:17 AM EDT Legal Sex Female 10:17 AM EDT Gender Identity Female 09/11/2022 10:17 AM EDT Sexual Orientation Bisexual 03/21/2023 3: 19 PM EDT documented as of this encounter Plan of Treatment Not on file documented as of this encounter Procedures Procedure Name Priority Date/Time Associated Diagnosis Comments CBC WITH AUTO DIFFERENTIAL Routine 12/31/2024 9:28 PM EST PROTHROMBIN TIME-INR Routine 12/31/2024 9:28 PM EST HCG, TOTAL, QN Routine 12/31/2024 9:28 PM EST LIPASE Routine 12/31/2024 9:28 PM EST COMPREHENSIVE METABOLIC PANEL Routine 12/31/2024 9:28 PM EST documented in this encounter Results * hCG, Total, Quantitative (12/31/2024 9:28 PM EST) HCG Quantitative <2 mIU/mL [facility] Comment:Weeks post LMP Appro ximate hCG(Last Menstrual Period) Range (mIU/ml)3 - 4 weeks 9 - 1304 - 5 weeks 75 - 2,6005 - 6 weeks 850 - 20,8006 - 7 weeks 4000 - 100,2007 - 12 weeks 11,500 - 289,53029 - 16 weeks 18,300 - 137,14650 - 29 weeks (2nd trimester) 1,400 - 53,51790 - 41 weeks (3rd trimester) 940 - 60,000The Jimenes B- hCG assay is used for the early detection ofpregnancy; it cannot be used to diagnose any conditionunrelated to . If a B-hCG level is not supportedby the clinical evidence, results should be confirmed by analternative method (qualitative urine hCG, for example). 12/31/2024 9:28 PM EST 12/31/2024 9:35 PM EST us Generic External Data Provider LAB BLOOD ORDERAB LES Final Result [facility] [address] [place] [address] [phone] * Lipase (12/31/2024 9:28 PM EST) Lipase 18 8 - 78 U/L [facility] 12/31/2024 9:28 PM EST 12/31/2024 9:35 PM EST us Generic External Data Provider LAB BLOOD ORDERAB LES Final Result Performing Organization Address [facility] Co de Phone Number [facility] [address] [place] [address] [phone] * (ABNORMAL) Comprehensive Metabolic Panel (12/31/2024 9:28 PM EST) Sodium 140 135 - 145 mmol/L [facility] Potassium 4.1 3.3 - 5.1 mmol/L [facility] Chloride 107 96 - 108 mmol/L [facility] Carbon Dioxide 25 22 - 29 mmol/L [facility] Anion Gap 12 12 - 20 [facility] Urea Nitrogen (BUN) 18(H) 9 - 16 mg/dL [facility] Creatinine, Serum 0.88 0.5 - 1.4 mg/dL [facility] Creatinine Clr Calc Pharmacy 75.7 [facility] Comment:Provided height and weight: 154.94 cm,50.349 kg.eGFR (calculated from the MDRD study equation) and eCrCl(calculated from the Cockcroft-Gault equation) are based ondifferent parameters and may not yield comparable results.If eCrCl result is absurd, please check patient'sheight/weight. Estimated Glomerular Filt Rate >60 [facility] Comment:Chronic Kidney Disea se: Estimated GFR < 60 mL/min/1.02r5Xjrals Kidney Disease: Estimated GFR < 15 mL/min/1.73m2 Glucose 107 60 - 115 mg/dL [facility] Calcium 9.4 8.4 - 10.2 mg/dL [facility] Bilirubin, Total 0.2 0.0 - 1.0 mg/dL [facility] Aspartate Amino Transferase 24 5 - 31 U/L [facility] Alanine Aminotransferase 18 0 - 31 U/L [facility] Total Protein 8.0 6.5 - 8.0 g/dL [facility] Albumin Level 4.7 3.5 - 5.0 g/dL [facility] Alkaline Phosphatase 53 39 - 117 U/L [facility] 12/31/2024 9:28 PM EST 12/31/2024 9:35 PM EST Generic External Data Provider LAB BLOOD ORDERAB LES Final Result Performing Organization Address [facility] de Phone Number [facility] [address] [place] [phone] * Prothrombin Time-INR (12/31/2024 9:28 PM EST) Prothrombin Time 12.1 10.9 - 12.4 SEC [facility] INTERNATIONAL NORM RATIO 1.0 0.9 - 1.1 [facility] Comment:INTERNATIONAL NORMAL IZED RATIO (INR) REFERENCE RANGES Reference RangeFor patients not on anticoagulant therapy: 0.9 - 1.1INR ranges for oral anticoagulanttherapy:For prevention and treatment of venous thrombosis and pulmonary embolism: 2.0 - 3.0For acute myocardial infarction with aspirin therapy: 2.0 - 3.0For acute myocardial infarction without aspirin therapy: 3.0 - 4.0For patients with mechanical prosthetic heart valves: 2.5 - 3.5 12/31/2024 9:28 PM EST 12/31/2024 9:35 PM EST Generic External Data Provider LAB BLOOD ORDERAB LES Final Result Performing Organization Address [facility] Phone Number [facility] [address] [place] [phone] * CBC auto differential (12/31/2024 9:28 PM EST) White Blood Count 5.4 4.8 - 10.8 X10*3/uL [facility] Red Blood Count 4.33 4.20 - 5.50 X10*6/uL [facility] Hemoglobin 12.2 12.0 - 16.0 g/dl [facility] Hematocrit 37.2 37.0 - 47.0 % [facility] Mean Corpuscular Volume 85.9 80.0 - 98.0 fL [facility] Mean Corpuscular Hemoglobin 28.2 27.0 - 33.0 pg [facility] Mean Corpuscular HGB Conc 32.8 31.0 - 35.0 g/dl [facility] Red Cell Distribution Width 12.0 11.0 - 16.0 % [facility] Platelet Count 232 160 - 400 X10*3/uL [facility] Mean Platelet Volume 9.4 9.4 - 12.3 fL [facility] Neutrophils Percent Auto 55.0 45 - 73 % [facility] Imm Gran Pct Auto 0.2 0.0 - 0.4 % [facility] Lymphocytes Percent Auto 36.3 20 - 40 % [facility] Monocytes Percent Auto 7.2 2 - 11 % [facility] Eosinophils Percent Auto 0.9 0 - 4 % [facility] Basophils Percent Auto 0.4 0 - 2 % [facility] NRBC Pct Auto 0.0 0.0 - 0.2 /100WBC [facility] Neutrophils Absolute Auto 3.0 2.0 - 8.3 x10*3/uL [facility] Imm Gran Abs Auto 0.01 0.00 - 0.03 X10*3/uL [facility] Lymphocytes Absolute Auto 2.0 1.2 - 4.9 X10*3/uL [facility] Monocytes Absolute Auto 0.4 0.1 - 1.2 X10*3/uL [facility] Eosinophils Absolute Auto 0.1 0.0 - 0.4 X10*3/uL [facility] Basophils Absolute Auto 0.0 0.0 - 0.2 X10*3/uL [facility] NRBC Abs Auto 0.000 0.0 - 0.012 X10*3/uL [facility] 12/31/2024 9:28 PM EST 12/31/2024 9:35 PM EST us Generic External Data Provider LAB BLOOD ORDERAB LES Final Result [facility] [address] [place] [phone] [phone] documented in this encounter Visit Diagnoses Not on filedocumented in this encounter Additional Health Concerns Assessment Noted Time PHQ-9 Depression Total Score: 4 03/21/20 2:29 PM EDT documented as of this encounter Care Teams Elevator Service Technician Relationship Specialty Start Date End Date Mignon King MD [address] [place] [address] PCP - General Internal Medicine 08/31/23 documented as of this encounter
--- OUTSIDE RECORDS SUMMARY | 2025-01-09 01:00 | XMS_ITS | Encounter Summary ---
Author Organization [employer] Address [address] [place] [address] Care Team Providers Care Solar Energy Sales Specialist Name Role Phone Mignon King MD Primary Care Pro vider Reason for Visit * Reason Onset Date Comments Nurse Triage 10/29/2024 Encounter Details Date Type Department Care Team ([facility] st Contact Info) Description 10/29/2024 Telephone [facility] [address] [place] [address] Mignon King MD [address] [place] [address] Nurse Triage Social History Tobacco Use Types Packs/Day Years Used Date Smoking Tobacco: Never Passive Smoke Exposure: Never Smokeless Tobacco: Never Alcohol Use Standard Drinks/Week Comments Yes 0 (1 standard drink = 0.6 oz [...] PM EDT documented as of this encounter Miscellaneous Notes * Telephone Encounter - Dee Bello RN - 10/29/2024 11:53 AM EST Triage call Pt reports pain/burning with urination. Pt reports blood in the urine. Pt denies frequency or hesitancy. Pt reports vaginal discharge also white color with odor. Pt has been treated in the past for bacterial vaginosis see reports 09/22/24 [facility]. Pt received depo injection 09/01/24. Pt reports painful intercourse which causes more urinary symptoms. Pt reports having two different partners right now. Pt is not using condoms and is encouraged to do so. Pt is needing education and guidance at this time. Pt is asking if , do I need to take a pill because Pt didn't use condoms. ASK aptwith MIKYTomer Oliveiralyricjonnie 10/30/24 @ 1015am. Pt was a no show 10/27/24 and advised to be sure to attend this appointment and Pt agreed . Pt agreed with disposition. Insurance is verified as active prior tobooking. Protocol Used: Urination Pain - Female (Adult) Protocol-Based Disposition: See in Office or Video Visit Today Override (Final) Disposition: See in Office or Video Visit Today or Tomorrow Override Reason: No appointments available Video visit not offered Positive Triage Question: * All other females with painful urination, or patient wants to be seen * All higher-acuity triage questions were negative Care Advice Discussed: * Reassurance and Education - Possible Urine Infection * Drink Extra Fluids * Cranberry Juice * Reasons To Call Back - Fever or back pain occurs - You become worse * Telephone Encounter - Jelena Fischer - 10/29/2024 10:47 AM EST Symptom: Urination Pain Outcome: Schedule an urgent appointment (within 1 hour) or talk to a nurse or provider soon Reason: Blood in urine The caller accepted this outcome. documented in this encounter Plan of Treatment Not on file documented as of this encounter Visit Diagnoses Not on filedocumented in this encounter Additional Health Concerns Assessment Noted Time PHQ-9 Depression Total Score: 4 03/21/20 2:29 PM EDT documented as of this encounter Care Teams Solar Energy Sales Specialist Relationship Specialty Start Date End Date Mignon King MD [address] [place] [phone] PCP - General Internal Medicine 08/31/23 documented as of this encounter
--- OUTSIDE RECORDS SUMMARY | 2025-01-09 01:00 | XMS_ITS | Encounter Summary ---
Author Organization [facility] Address [address] [place] [address] [address] [place] [address] Care Team Providers Care Cutting Supervisor Name Role Phone Clair Johnson Primary Care Provider [phone] Mignon King MD Primary Care Pro vider Encounter Details Date Type Department Care Team ([facility] st Contact Info) Description 01/15/2023 Orders Only [facility] [address] [place] [address] Clair Johnson FNP [address] [place] [address] Bacterial vaginitis (Primary Dx) Social History Tobacco Use Types Packs/Day Years Used Date Smoking Tobacco: Never Smokeless Tobacco: Never Alcohol Use Standard Drinks/Week Comments Yes 0 (1 standard drink = 0.6 oz pur e alcohol) Comments Unknown Sex and Gender Information Value Date Recorded Sex Assigned at Female 09/11/2022 10:17 AM EDT Legal Sex Female 10:17 AM EDT Gender Identity Female 09/11/2022 10:17 AM EDT Sexual Orientation Bisexual 03/21/2023 3: 19 PM EDT COVID-19 Exposure Response Date Recorded In the last 10 days, have yo u been in contact with someone who was confirmed or suspected to have Coronavirus/COVID-19? No / Unsure 12/29/2022 11:06 AM EST documented as of this encounter Plan of Treatment Not on file documented as of this encounter Visit Diagnoses Diagnosis Bacterial vaginitis- Primary Unspecified vaginitis and vulvovaginitis documented in this encounter Care Teams Cutting Supervisor Relationship Specialty Start Date End Date Clair Johnson FNP [address] [place] [address] PCP - General Family Medicine 08/22/22 08/30/23 Mignon King MD [address] [place] [address] PCP - General Internal Medicine 08/31/23 documented as of this encounter
--- OUTSIDE RECORDS SUMMARY | 2025-01-09 01:00 | XMS_ITS | Encounter Summary ---
Author Organization [employer] Address [address] [place] [address] 7 [place] [address] Care Team Providers Care Senior Network Security Engineer Name Role Phone Mignon King MD Primary Care Pro vider Encounter Details Date Type Department Care Team (Late st Contact Info) Description 01/02/2025 Orders Only GENERIC EXTERNAL DATA DEPARTMENT Provider, [...] Procedure Name Priority Date/Time Associated Diagnosis Comments BACTERIAL VAGINOSIS PANEL Routine 01/02/2025 9:47 PM EST CHLAMYDIA/N. GONORRHOEAE RNA, TMA, UROGENITAL Routine 01/02/2025 9:47 PM EST WET PREP, GENITAL Routine 01/02/2025 9:4 7 PM EST CBC WITH AUTO DIFFERENTIAL Routine 01/02/2025 2:34 PM EST URINALYSIS WITH REFLEX MICROSCOPIC Routine 01/02/2025 2:34 PM EST HCG, TOTAL, QN Routine 01/02/2025 2:34 PM EST MAGNESIUM Routine 01/02/2025 2:34 PM EST COMPREHENSIVE METABOLIC PANEL Routine 01/02/2025 2:34 PM EST XR KUB AND UPRIGHT 2 VIEWS Routine 01/02/2025 2:17 PM EST documented in this encounter Results * (ABNORMAL) Bacterial Vaginosis (01/02/2025 9:47 PM EST) TRICHOMONAS VAGINALIS DETECTION BY PCR NOT DETECTED Not Detect [facility] BACTERIAL VAGINOSIS DETECTION BY PCR POSITIVE(A) Negative [facility] Comment:The BV organism targ ets of the Xpert Xpress MVP test can becommensal in women; Xpert Xpress MVP positive results forbacterial vaginosis should be considered in conjunction withother clinical and patient information to determine thedisease status. Organisms that are not detected by the XpertXpress MVP test have also been reported to be associatedwith BV and aerobic vaginitis.The Xpert Xpress MVP test performance has not been evaluatedin patients under the age of 14. CHELA GROUP DETECTION BY PCR NOT DETECTED Not Detect [facility] Chela glab krusei PCR NOT DETECTED Not Detect [facility] 01/02/2025 9:47 PM EST 01/04/2025 8:56 AM EST us Generic External Data Provider LAB MICROBIOLOGY - GENERAL ORDERABLES Final Result [facility] [address] [place] [address] [phone] * Chlamydia/N. Gonorrhoeae RNA, TMA, Urogenitial (01/02/2025 9:47 PM EST) CT PCR NOT DETECTED Not Detect. [facility] Comment:A not detected test result does not exclude the possibilityof infection because test results can be affected byimproper specimen collection, concurrent antibiotic therapy,or the number of organisms in the specimen which may bebelow the sensitivity of the test. As with many diagnostictests, results from the Xpert CT/NG assay should beinterpreted in conjunction with other laboratory andclinical data available to the clinician.Xpert CT/NG performance has not been evaluated in patientsless than 14 years of age. The assay should not be used forthe evaluationof suspected sexual abuse or for other medico-legalindications. Additional testing is recommended in anycircumstance when false positive or false negative resultscould lead to adverse medical, social or psychologicalconsequences. NG PCR NOT DETECTED Not Detect. [facility] Comment:A not detected test result does not exclude the possibilityof infection because test results can be affected byimproper specimen collection, concurrent antibiotic therapy,or the number of organisms in the specimen which may bebelow the sensitivity of the test. As with many diagnostictests, results from the Xpert CT/NG assay should beinterpreted in conjunction with other laboratory andclinical data available to the clinician.Xpert CT/NG performance has not been evaluated in patientsless than 14 years of age. The assay should not be used forthe evaluationof suspected sexual abuse or for other medico-legalindications. Additional testing is recommended in anycircumstance when false positive or false negative resultscould lead to adverse medical, social or psychologicalconsequences. 01/02/2025 9:47 PM EST 01/02/2025 9:51 PM EST Narrative [facility] - 01/03/2025 2:32 AM EST Vaginal Generic External Data Provider LAB MICROBIOLOGY - GENERAL ORDERABLES Final Result Performing Organization Address [facility] Co de Phone Number [facility] [address] [place] [phone] * Wet prep, genital (01/02/2025 9:47 PM EST) Vaginal Fluid Vaginal structure / Unknown 01/02/2025 9:47 PM EST 01/02/2025 9:51 PM EST Comment:Vaginal Narrative [facility] - 01/02/2025 9:58 PM EST Trichomonas Prep Direct Microscopic Exam Trichomonas Prep No trichomonads or yeast seen Specimen Source: Vaginal Generic External Data Provider LAB MICROBIOLOGY - GENERAL ORDERABLES Final Result Performing Organization Address [facility] Co de Phone Number [facility] [address] [place] [phone] * hCG, Total, Quantitative (01/02/2025 2:34 PM EST) HCG Quantitative <2 mIU/mL [facility] Comment:Weeks post LMP Appro ximate hCG(Last Menstrual Period) Range (mIU/ml)3 - 4 weeks 9 - 1304 - 5 weeks 75 - 2,6005 - 6 weeks 850 - 20,8006 - 7 weeks 4000 - 100,2007 - 12 weeks 11,500 - 289,67605 - 16 weeks 18,300 - 137,54653 - 29 weeks (2nd trimester) 1,400 - 53,13714 - 41 weeks (3rd trimester) 940 - 60,000The Jimenes B- hCG assay is used for the early detection ofpregnancy; it cannot be used to diagnose any conditionunrelated to . If a B-hCG level is not supportedby the clinical evidence, results should be confirmed by analternative method (qualitative urine hCG, for example). 01/02/2025 2:34 PM EST 01/02/2025 2:37 PM EST Generic External Data Provider LAB BLOOD ORDERAB LES Final Result Performing Organization Address [facility] Co de Phone Number [facility] [address] [place] [phone] * Magnesium (01/02/2025 2:34 PM EST) Pathologist [facility] Magnesium 2.2 1.6 - 2.6 mg/dL [facility] 01/02/2025 2:34 PM EST 01/02/2025 2:37 PM EST Generic External Data Provider LAB BLOOD ORDERAB LES Final Result Performing Organization Address [facility] de Phone Number [facility] [address] [place] [phone] * (ABNORMAL) Comprehensive Metabolic Panel (01/02/2025 2:34 PM EST) Sodium 138 135 - 145 mmol/L [facility] Potassium 3.9 3.3 - 5.1 mmol/L [facility] Chloride 105 96 - 108 mmol/L [facility] Carbon Dioxide 27 22 - 29 mmol/L [facility] Anion Gap 10(L) 12 - 20 [facility] Urea Nitrogen (BUN) 15 9 - 16 mg/dL [facility] Creatinine, Serum 1.03 0.5 - 1.4 mg/dL [facility] Creatinine Clr Calc Pharmacy 64.6 [facility] Comment:Provided height and weight: 154.94 cm,50.349 kg.eGFR (calculated from the MDRD study equation) and eCrCl(calculated from the Cockcroft-Gault equation) are based ondifferent parameters and may not yield comparable results.If eCrCl result is absurd, please check patient'sheight/weight. Estimated Glomerular Filt Rate >60 [facility] Comment:Chronic Kidney Disea se: Estimated GFR < 60 mL/min/[id number] Kidney Disease: Estimated GFR < 15 mL/min/1.73m2 Glucose 97 60 - 115 mg/dL [facility] Calcium 9.7 8.4 - 10.2 mg/dL [facility] Bilirubin, Total 0.3 0.0 - 1.0 mg/dL [facility] Aspartate Amino Transferase 23 5 - 31 U/L [facility] Alanine Aminotransferase 19 0 - 31 U/L [facility] Total Protein 8.6(H) 6.5 - 8.0 g/dL [facility] Albumin Level 4.8 3.5 - 5.0 g/dL [facility] Alkaline Phosphatase 58 39 - 117 U/L [facility] 01/02/2025 2:34 PM EST 01/02/2025 2:37 PM EST us Generic External Data Provider LAB BLOOD ORDERAB LES Final Result Performing Organization Address City/State/[facility] Co de Phone Number [facility] [address] [place] [phone] * Urinalysis w/reflex microscopic (01/02/2025 2:34 PM EST) Color Urine Yellow [facility] Appearance Urine Clear [facility] PH 7.5 5.0 - 9.0 [facility] Glucose Urine UA Negative Negative mg/dL [facility] Urine Blood Negative Negative [facility] Specific [place] - Urine 1.025 1.005 - 1.025 [facility] Urine Protein Negative Neg-Trace mg/dL [facility] Urine Ketones Trace Negative mg/dL [facility] Nitrite Urine Negative Negative [facility] Leukocyte Esterase Urine Negative Negative [facility] 01/02/2025 2:34 PM EST 01/02/2025 2:37 PM EST Narrative [facility] - 01/02/2025 2:43 PM EST [id number], Clean Catch us Generic External Data Provider LAB URINE ORDERAB LES Final Result [facility] [address] [place] [address] [phone] * (ABNORMAL) CBC auto differential (01/02/2025 2:34 PM EST) White Blood Count 5.9 4.8 - 10.8 X10*3/uL [facility] Red Blood Count 4.82 4.20 - 5.50 X10*6/uL [facility] Hemoglobin 13.4 12.0 - 16.0 g/dl [facility] Hematocrit 41.6 37.0 - 47.0 % [facility] Mean Corpuscular Volume 86.3 80.0 - 98.0 fL [facility] Mean Corpuscular Hemoglobin 27.8 27.0 - 33.0 pg [facility] Mean Corpuscular HGB Conc 32.2 31.0 - 35.0 g/dl [facility] Red Cell Distribution Width 11.9 11.0 - 16.0 % [facility] Platelet Count 248 160 - 400 X10*3/uL [facility] Mean Platelet Volume 9.2(L) 9.4 - 12.3 fL [facility] Neutrophils Percent Auto 68.8 45 - 73 % [facility] Imm Gran Pct Auto 0.2 0.0 - 0.4 % [facility] Lymphocytes Percent Auto 24.4 20 - 40 % [facility] Monocytes Percent Auto 5.8 2 - 11 % [facility] Eosinophils Percent Auto 0.5 0 - 4 % [facility] Basophils Percent Auto 0.3 0 - 2 % [facility] NRBC Pct Auto 0.0 0.0 - 0.2 /100WBC [facility] Neutrophils Absolute Auto 4.1 2.0 - 8.3 x10*3/uL [facility] Imm Gran Abs Auto 0.01 0.00 - 0.03 X10*3/uL [facility] Lymphocytes Absolute Auto 1.4 1.2 - 4.9 X10*3/uL [facility] Monocytes Absolute Auto 0.3 0.1 - 1.2 X10*3/uL [facility] Eosinophils Absolute Auto 0.0 0.0 - 0.4 X10*3/uL [facility] Basophils Absolute Auto 0.0 0.0 - 0.2 X10*3/uL [facility] NRBC Abs Auto 0.000 0.0 - 0.012 X10*3/uL [facility] 01/02/2025 2:34 PM EST 01/02/2025 2:37 PM EST us Generic External Data Provider LAB BLOOD ORDERAB LES Final Result Performing Organization Address City/State/[facility] Co de Phone Number [facility] [address] [place] [phone] [phone] * XR KUB and Upright 2 Views (01/02/2025 2:17 PM EST) Anatomical Region Laterality Modality Radiographic Marybeth ging 01/02/2025 2:17 PM EST Narrative 01/02/2025 3:04 PM EST ? [facility] ?[address] ?[place] [address] ?XRay Report ? Signed ? Patient: Garcia,Lolly L ?MR#: [id number] ?? [id number] ? : 2000 ?Acct:[id number] ? Age/Sex: 24 / F ?ADM Date: 02/21/25 ? Loc: HO.ED ? Attending Dr: ? Ordering Physician: Ramona Tejeda ?? Date of Service: 01/02/25 ?? Procedure(s): XR KUB ?? Accession Number(s): [id number] ? cc: Ramona Tejeda; Mignon King MD ? EXAMINATION: ?? XR ABDOMEN KUB ? CLINICAL INDICATION: ?? pain ? COMPARISON: ?? None available. ? TECHNIQUE: ?? AP view of the abdomen. ? FINDINGS: ?? The bowel gas pattern is normal with no evidence of ileus or ?? obstruction. No unusual soft tissue calcifications are noted. The bones ?? are unremarkable. ? XR/XR KUB ?? IMPRESSION: ?? Unremarkable examination. ? Electronically signed by: ??Aung Farnsworth MD ??01/02/2025 03:01 PM EST RP ? Dictated By: ?Aung Farnsworth MD ? Signed By: ?<Electronically signed by Aung Farnsworth MD in OV> ?01/02/25 1501 ? DD/ 1417 ? TD/TT: 01/02/25 1448 ? Border Patrol Agent: ? Procedure Note [place], Image - 01/02/2025 [place] [id number] XRay Report Signed Patient: Lolly Garcia LMR#: [id number] : 2000Acct:[id number] Age/Sex: M Date: 01/02/25 Loc: HO.ED Attending Dr: Ordering Physician: Ramona Tejeda Date of Service: 01/02/25 Procedure(s): XR KUB Accession Number(s): [id number] cc: Ramona Tejeda; Mignon King MD EXAMINATION: XR ABDOMEN KUB CLINICAL INDICATION: pain COMPARISON: None available. TECHNIQUE: AP view of the abdomen. FINDINGS: The bowel gas pattern is normal with no evidence of ileus or obstruction. No unusual soft tissue calcifications are noted. The bones are unremarkable. XR/XR KUB IMPRESSION: Unremarkable examination. Electronically signed by: Aung Farnsworth MD 01/02/2025 03:01 PM [facility] Dictated By: Aung Farnsworth MD Signed By: <Electronically signed by Aung Farnsworth MD in OV> 01/02/25 1501 DD/ 1417 TD/TT: 01/02/25 1448 Border Patrol Agent: us [facility] External Provider IMG XR PROCEDURES Final Result documented in this encounter Visit Diagnoses Not on filedocumented in this encounter Additional Health Concerns Assessment Noted Time PHQ-9 Depression Total Score: 4 03/21/20 2:29 PM EDT documented as of this encounter Care Teams Senior Network Security Engineer Relationship Specialty Start Date End Date Mignon King MD [address] [place] [phone] PCP - General Internal Medicine 08/31/23 documented as of this encounter
--- OUTSIDE RECORDS SUMMARY | 2025-01-09 01:00 | XMS_ITS | Encounter Summary ---
Author Organization [employer] Address [address] [place] [address] 7 [place] [address] Care Team Providers Care Tissue Recovery Technician Name Role Phone Mignon King MD Primary Care Pro vider Reason for Visit * Reason Comments Med Refill Encounter Details Date Type Department Care Team (Late st Contact Info) Description 09/12/2024 Refill [facility] [address] [place] [address] Clair Johnson FNP [address] [place] [address] Social History Tobacco Use Types Packs/Day Years [...] documented as of this encounter Care Teams Tissue Recovery Technician Relationship Specialty Start Date End Date Mignon King MD [address] [place] [phone] PCP - General Internal Medicine 08/31/23 documented as of this encounter
--- OUTSIDE RECORDS SUMMARY | 2025-01-09 01:00 | XMS_ITS | Encounter Summary ---
Author Organization [employer] [facility] Address [address] [place] [address] 7 [place] [address] Care Team Providers Care Clutch Inspector Name Role Phone Clair Johnson ELIZABET Primary Care Provider [phone] Mignon King MD Primary Care Pro vider Reason for Visit * Reason Comments Med Refill Encounter Details Date Type Department Care Team (Late st Contact Info) Description 03/19/2023 Refill [facility] [address] [place] [address] Indiana Toro, ANP [address] [place] [address] Herpes Social History Tobacco Use Types Packs/Day Years Used Date Smoking Tobacco: Never Smokeless Tobacco: Never Alcohol Use Standard Drinks/Week Comments Yes 0 (1 standard drink = 0.6 oz pur e alcohol) Depression Answer Date Recorded Patient Health Questionnaire-9 Score 4 03/21/2023 Depression Answer Date Recorded Patient Health Questionnaire-2 Score 2 03/21/2023 Comments Unknown Sex and Gender Information Value [...] suspected to have Coronavirus/COVID-19? No / Unsure 03/21/2023 2:10 PM EDT documented as of this encounter Plan of Treatment Not on file documented as of this encounter Visit Diagnoses Diagnosis Herpes Herpes simplex without mention of complication documented in this encounter Care Teams Clutch Inspector Relationship Specialty Start Date End Date Clair Johnson FNP [address] [place] [address] PCP - General Family Medicine 08/22/22 08/30/23 Mignon King MD [address] [place] [address] PCP - General Internal Medicine 08/31/23 documented as of this encounter
--- OUTSIDE RECORDS SUMMARY | 2025-01-09 01:00 | XMS_ITS | Encounter Summary ---
Author Organization [employer] Address [address] [place] [address] Care Team Providers Care Open Claims Representative Name Role Phone Mignon King MD Primary Care Pro vider Reason for Visit * Reason Onset Date Comments Nurse Triage 01/02/2025 Encounter Details Date Type Department Care Team ([facility] st Contact Info) Description 01/02/2025 Telephone [facility] [address] [place] [address] Mignon King MD [address] [place] [address] Nurse Triage Social History Tobacco Use Types [...] encounter Miscellaneous Notes * Telephone Encounter - Lorin Granados RN - 01/02/2025 2:25 PM EST called pt to triage, spoke to pt. pt states currently in the ER at [facility] for severe low pelvic pain that radiates to her back with pink vaginal discharge. pt advised to complete the ER visit and call back for possible follow up as needed. pt also wants PE and was advised will send to the team [place] to schedule this. pt understands and agrees with plan. insurance verified. Protocol Used: Pelvic Pain - Female (Adult) Protocol-Based Disposition: Go to ED Now Positive Triage Question: * Severe pelvic pain and present > 1 hour * All higher-acuity triage questions were negative Care Advice Discussed: * Reassurance and Education - Ovulation Pain (Also called Adrián) * Use Heat * General Health Tips * Pain Medicines * Reasons To Call Back - Severe pain lasts over 1 hour - Constant pain lasts over 2 hours - Intermittent pain (comes and goes, cramps) lasts over 48 hours - You become worse * Telephone Encounter - Barrett Tejada - 01/02/2025 12:28 PM EST Symptom: Vaginal Symptoms - Not Bleeding Outcome: Schedule an urgent appointment (within 1 hour) or talk to a nurse or provider soon Reason: Any pelvic pain The caller accepted this outcome. Contact pt at [phone] Before 4:00 because pt goes to work at that time and gets out at 615: in the morning. documented in this encounter Plan of Treatment Not on file documented as of this encounter Visit Diagnoses Not on filedocumented in this encounter Additional Health Concerns Assessment Noted Time PHQ-9 Depression Total Score: 4 03/21/20 2:29 PM EDT documented as of this encounter Care Teams Open Claims Representative Relationship Specialty Start Date End Date Mignon King MD [address] [place] [phone] PCP - General Internal Medicine 08/31/23 documented as of this encounter
--- OUTSIDE RECORDS SUMMARY | 2025-01-09 01:00 | XMS_ITS | Encounter Summary ---
Author Organization [employer] Address [address] [place] [address] Care Team Providers Care Emt/Dispatcher Name Role Phone Mignon King MD Primary Care Pro vider Reason for Visit * Reason Onset Date Comments Results 10/19/2023 Encounter Details Date Type Department Care Team ([facility] st Contact Info) Description 10/19/2023 Telephone [facility] [address] [place] [address] Mignon King MD [address] [place] [address] Results Social History Tobacco Use Types Packs/Day Years [...] encounter Miscellaneous Notes * Telephone Encounter - Errol Tovar - 10/22/2023 9:53 AM EST Tc from patient requesting a call back in regards to message below * Telephone Encounter - Casper Henley - 10/19/2023 3:49 PM EST Tc from pt requesting results for lab work and vaginal. Pt states she had them done on 10/12/2023 . Please contact Pt @ [phone] Nigerien Speaker documented in this encounter Plan of Treatment Not on file documented as of this encounter Visit Diagnoses Not on filedocumented in this encounter Additional Health Concerns Assessment Noted Time PHQ-9 Depression Total Score: 4 03/21/20 2:29 PM EDT documented as of this encounter Care Teams Emt/Dispatcher Relationship Specialty Start Date End Date Mignon King MD [address] [place] [phone] PCP - General Internal Medicine 08/31/23 documented as of this encounter
--- OUTSIDE RECORDS SUMMARY | 2025-01-09 01:00 | XMS_ITS | Clinical Summary ---
Author Organization [employer] Address [address] [place] [address] [address] [place] [address] Care Team Providers Care Outside Rigger Name Role Phone Mignon King MD Primary Care Pro vider Allergies No known active allergies Medications * This document contains information received from the source organization and may not represent a complete record from that organization. medroxyPROGESTE Lev (Depo-Provera) 150 MG/ML injection Inject 1 mL (150 mg) into the muscle every 3 (three) months. 1 mL 3 4 Active valACYclovir (Valtrex) 500 MG tabletIndicatio ns:Herpes TAKE 1 TABLET BY MOUTH DAILY FOR PREVENTION but if having active disease take 1 tab twice a day for 3 days 36 tablet 5 4 Active Hospital, Clinic, or Other Facility Administered Medication Ordered Dose Route Frequency Start Date End Date Status medroxyPROGESTERone (Depo-Provera) injection 150 mgIndications:Family planning counseling 150 mg IM See admin instructions 01/30/2024 Active Active Problems Problem Noted Date Diagnosed Date Anxiety 12/03/2023 Cannabis abuse 12/03/2023 BV (bacterial vaginosis) 05/08/2023 Assessment & Plan (08/21/2023 8:41 PM EDT): 08/13/23 urine E coli 50 to 100 K klein sx ,gn/ch neg . Pt was seen here in [facility] and provider already started tx with flagyl PO and amoxicillin for UTI . Pt reports vaginal symptoms are improving . Denies symptoms, fever nor chills. -advised to continue flagyl to complete 7 days of tx and amoxicillin 3 days of questionable non complicated UTI-meds prescribed by provider that saw pt at last visit -gave today excuse letter for 2 days since yesterday -pt had again CG/ch and BV self swab today? -ordered before I saw pt and sent to lab already --even if positive again for gardnerella no need tx , pt receiving currently tx -if symptoms recurs will need to consider [employer] tx for recurrent infections -to f up in 4 weeks H/O chlamydia infection 05/02/2023 Assessment & Plan (08/21/2023 8:52 PM EDT): Pt to f w CRS team -states she will f up next week -if she does not have STI retest soon will repeat all sites STI test to r/o reinfection Healthcare maintenance 03/21/2023 Assessment & Plan (08/21/2023 8:45 PM EDT): -Pap smear: never. Will start at 23 y of age. -Contraception: reports hx of implant and unspecified oral pills inconsistently.-Discussed before about IUD option vs other contraceptive methods.wants to hold for now -Vaccines: s/p HPV x3, Tdap 2013, no record of Covid vaccine - will discuss w pt at next visit. -Annual labs Order by me in 03/2023 But never done --had STI test w CRS team ---will request to front desk person staff to schedule apt w me for annual exam for next month . Assessment & Plan (03/21/2023 8:42 PM EDT): -Pap smear: never. Will start at 23 y of age. -Contraception: reports hx of implant and unspecified oral pills inconsistently. -Discussed today about IUD option vs other contraceptive methods. Referred to clinic provider Cierra Jones for this.--- [place] to schedule apt today. -Vaccines: s/p HPV x3, Tdap 2013, no record of Covid vaccine - will discuss w pt at next visit. -Annual labs to be done. Herpetic mian 03/21/2023 Assessment & Plan (08/21/2023 8:42 PM EDT): Pt w hx of herpetic mian from [facility] records. Had a positive viral culture of lesion on the finger for Herpes. - on chronic Valacyclovir 500 mg daily. This has aided in reducing the frequency of sx recurrence. Assessment & Plan (03/21/2023 8:26 PM EDT): Pt w hx of herpetic mian from [facility] records. Had a positive viral culture of lesion on the finger for Herpes. Lesions are consistent w diagnosis, pt is for this already on chronic Valaciclovir 500 mg daily. This has aided in reducing the frequency of sx recurrence. -Will increase Valaciclovir to 1g bid for 7 d for acute flare ups and then continue 500 mg daily. -If sx recur frequently will consider repeating swabs of lesions to send for PCR and culture to evaluate sensitivities Problems related to high-risk sexual behavior Assessment & Plan (08/21/2023 8:43 PM EDT): Pt is bisexual with mx sexual partners -currently 1 male and 1 female partner -discussed in length importance for safe sex practices -discussed about PREP option and pt is interested -referred to PREP team in the past , pt states will return to PREP team once completes current tx for BV Assessment & Plan (03/21/2023 8:32 PM EDT): Pt is bisexual with mx sexual partners -currently 1 male and reports in last months 2 female partners -discussed in length importance for safe sex practices -discussed about PREP option and pt is interested -referred x labs today and referred today to PREP clinic to discuss options -pt would like to check inj option vs pill Current mild episode of traci r depressive disorder without prior episode 03/21/2023 Assessment & Plan (08/21/2023 8:52 PM EDT): PHQ:4 in 03/2023 Reports depressive symptoms x last 9 months since had issues w previous partner Denies SI,hallucinations nor kristie -referred to -saw pt in office - to refer pt to outpt psychotx x depression and to help decreasing marijuana use -will monitor Assessment & Plan (04/04/2023 11:18 AM EDT): Assessment: ?? Patient with improved depressive symptoms in the context of utilizing coping skills and managing stress. ?? At this time Lolly Garcia meets criteria for Visit Diagnoses: Problem List Items Addressed This Visit ? Other ?? Current mild episode of major depressive disorder without prior episode (CMS/HCC) ?? Patient ready to address current needs Yes ?? Strengths include self driven, motivated, and self reliant. ?? PLAN: 1. Follow up with [facility]: Not recommended for follow-up 2. Patient goal is to engage in OP therapy once service is established 3. Behavioral Recommendations a. Patient will utilize coping skills b. Patient will reach out to [facility], if needed Assessment & Plan (03/21/2023 8:37 PM EDT): PHQ:4 today Reports depressive symptoms x last 5 months since had issues w previous partner Denies SI,hallucinations nor kristie -referred today to -saw pt in office - to refer pt to outpt psychotx x depression and to help decreasing marijuana use -will monitor Resolved Problems Problem Noted Date Diagnosed Date Resolved Date Vaginal discharge 03/21/2023 08/21/2023 Assessment & Plan (03/21/2023 8:22 PM EDT): Whitish vaginal discharge with no other complaints. Urine dipstick today was negative. Prescribed Fluconazole empirically x1. Encounters Date Type Department Care Team Description 01/02/2025 Orders Only GENERIC EXTERNAL DATA DEPARTMENT Provider, Generic External Data 01/02/[address] [address] Mignon King MD Nurse Triage 12/31/2024 Orders Only GENERIC EXTERNAL DATA DEPARTMENT Provider, Generic External Data 11/27/2024 Travel 11/04/2024 Orders Only [address] [address] Ashley Addison CNM Screening examination for venereal disease (Primary Dx); On pre-exposure prophylaxis for HIV 10/31/[address] [phone] Indiana Toro, ANP Results 10/30/2024 10:15 AM EST Office Visit [address] [address] Ashley Addison CNM Urinary symptom or sign (Primary Dx); Vaginal symptom; Screening examination for venereal disease 10/30/2024 Orders Only [address] [address] Ashley Addison CNM 10/29/[address] [phone] Mignon King MD Nurse Triage 10/27/[address] [phone] Ashley Addison CNM No Show from Last 3 Months Immunizations Name Administration Dates Next Due DTaP 04/09/2007, 4,06/12/2003,04/27,01/07/2003 HPV 9-Valent 03/31/2015,06/18/2014 HPV, Unspecified 09/07/2014 Hep A, ped/adol, 2 dose 05/20/2019,05/06/2018 Hep B, Adolescent or Pediatric 04/27/2003,2002,2002 Hep B, adult 10/12/2023 HiB, unspecified 10/08/2004,06/12/2003, 3 Hib (PRP-T) 01/07/2003 IPV 04/09/2007, 4,06/12/2003,01/07 MMR 04/09/2007,12/01/2003 Meningococcal MCV4P ACYW-135 05/20/2019,06/18/20 14 Pneumococcal Conjugate PCV 13 12/01/2003 ,06/12/2003,04/27/2003,01/07 TD (adult), 2 Lf tetanus tox oid, preservative free, adsorbed 06/18/2014 Tdap 12/26/2023,06/18/2014 Varicella 04/09/2007,12/01/2003 Family History Medical History Relation Name Comments Panic attacks, arthrosis Mother Lung cancer Mother's Brother Relation Name Status Comments Mother Mother's Brother Social History Tobacco Use Types Packs/Day Years Used Date Smoking Tobacco: Never Passive Smoke Exposure: Never Smokeless Tobacco: Never Tobacco Cessation:Counseling Given: Not Answered Alcohol Use Standard Drinks/Week Comments Not Currently [...] t he electric, gas, oil or water [employer] threatened to shut off services in your home? No 12/14/2023 Depression Answer Date Recorded Patient Health Questionnaire-2 Score 2 03/21/2023 Comments No Sex and Gender Information Value Date Recorded Sex Assigned at Female 09/11/2022 10:17 AM EDT Legal Sex Female 10:17 AM EDT Gender Identity Female 09/11/2022 10:17 AM EDT Sexual Orientation Bisexual 03/21/2023 3: 19 PM EDT Last Filed Vital Signs Vital Sign Reading Time Taken Comments Blood Pressure 128/70 10/30/2024 10:40 AM EST Pulse 98 10/30/2024 10:40 AM EST Temperature 36.5 ??C (97.7 ??F) 10/30/2024 10:[address] Respiratory Rate 16 10/30/2024 10:40 AM EST Oxygen Saturation 99% 10/30/2024 10:40 AM EST Inhaled Oxygen Concentration - - Weight 51.9 kg (114 lb 6.4 oz) 10/30/2024 10:40 AM EST Height 154.9 cm (5' 1 ) 10/30/2024 10:40 AM EST Body Mass Index 21.62 10/30/2024 10:40 AM EST Plan of Treatment Health Maintenance Due Date Last Done Comments Alcohol/Substance Use Screening 2014 Depression Screening 03/21/2024 03/21/2023, 03/21/20 23 COVID-19 Vaccine ( season) 2024 Influenza Vaccine (#1) 2024 SDOH Screening 12/14/2024 12/14/2023 Pap Smear 01/29/2025 01/30/2024, 01/30/2024 Family Planning (PISQ) 10/30/2025 10/30/2024 Tobacco Screening 10/30/2025 10/30/2024 Chlamydia and Gonorrhea Screening 01/02/2026 01/02/2025, 10/30/2024, 10/30/2024, Additional history exists DTaP/Tdap/Td Vaccines (8 - Td or Tdap) 12/26/2033 12/26/2023, 06/18/2014, 06/18/2014, Additional history exists Zoster Vaccines (1 of 2) 2052 RSV Patients and Patients Aged 60 years or older (1 - 1-dose 75+ series) 2077 Pneumococcal Vaccine: Pediatrics (0 to 5 Years) and At-Risk Patients (6 to 49) Years) Completed 12/01/2003, 06/12/2003, 04/27/2003, Additional history exists HIB Vaccines Completed 10/08/2004, 11/2002, 04/27/2003, Additional history exists IPV Vaccines Completed 04/09/2007, 11/13, 06/12/2003, Additional history exists HPV Vaccines Completed 03/31/2015, 08/13, 06/18/2014 Hepatitis A Vaccines Completed 05/20/2019, 05/06/20 18 Meningococcal Vaccine Completed 05/20/2019, 014 Hepatitis B Vaccines Completed 10/12/2023, 04/27/2003, 2002, Additional history exists Hepatitis C Screening Completed 09/01/2024 , 12/26/2023, 11/29/2023, Additional history exists HIV Screening Completed 10/30/2024, 08/13, 09/01/2024, Additional history exists RSV under 20 months Aged Out No longe r eligible based on patient's age to complete this topic Rotavirus Vaccines Aged Out No longer eligible based on patient's age to complete this topic Procedures Procedure Name Priority Date/Time Associated Diagnosis Comments BACTERIAL VAGINOSIS PANEL Routine 01/02/2025 9:47 PM EST CHLAMYDIA/N. GONORRHOEAE RNA, TMA, UROGENITAL Routine 01/02/2025 9:47 PM EST WET PREP, GENITAL Routine 01/02/2025 9:4 7 PM EST HCG, TOTAL, QN Routine 01/02/2025 2:34 PM EST MAGNESIUM Routine 01/02/2025 2:34 PM EST COMPREHENSIVE METABOLIC PANEL Routine 01/02/2025 2:34 PM EST URINALYSIS WITH REFLEX MICROSCOPIC Routine 01/02/2025 2:34 PM EST CBC WITH AUTO DIFFERENTIAL Routine 01/02/2025 2:34 PM EST XR KUB AND UPRIGHT 2 VIEWS Routine 01/02/2025 2:17 PM EST HCG, TOTAL, QN Routine 12/31/2024 9:28 PM EST LIPASE Routine 12/31/2024 9:28 PM EST COMPREHENSIVE METABOLIC PANEL Routine 12/31/2024 9:28 PM EST PROTHROMBIN TIME-INR Routine 12/31/2024 9:28 PM EST CBC WITH AUTO DIFFERENTIAL Routine 12/31/2024 9:28 PM EST CHLAMYDIA/N. GONORRHOEAE RNA, TMA, THROAT Routine 10/30/2024 11:04 AM EST HIV 1/2 ANTIGEN/ANTIBODY, FOURTH GENERATION W/RFL Routine 10/30/2024 10:59 AM EST Screening examination for venereal disease SYPHILIS SCREEN Routine 10/30/2024 10:59 AM EST Screening examination for venereal disease BACTERIAL VAGINOSIS PANEL Routine 10/30/2024 10:56 AM EST CULTURE, URINE, ROUTINE Routine 10/30/2024 10:56 AM EST Urinary symptom or sign CHLAMYDIA/N. GONORRHOEAE RNA, TMA, UROGENITAL Routine 10/30/2024 10:56 AM EST Screening examination for venereal disease POCT URINALYSIS DIPSTICK Routine 10/30/2024 10:53 AM EST Urinary symptom or sign HEPATITIS C AB W/REFL TO HCV RNA, QN, PCR Routine 09/01/2024 10:15 AM EDT IMAGE-GUIDED PAP W/AGE BASED SCR,W/CT/NG/TRICH Routine 01/30/2024 10:56 AM EDT Screening examination for venereal disease Routine cervical smear from Last 3 Months or Most Recently Relevant to Health Maintenance Results * (ABNORMAL) Bacterial Vaginosis (01/02/2025 9:47 PM EST) Only the most recent of2 resultswithin the time period is included. TRICHOMONAS VAGINALIS DETECTION BY PCR NOT DETECTED Not Detect [facility] BACTERIAL VAGINOSIS DETECTION BY PCR POSITIVE(A) Negative [facility] Comment:The BV organism targ ets of [...] DETECTION BY PCR NOT DETECTED Not Detect [facility] Chela glab krusei PCR NOT DETECTED Not Detect [facility] 01/02/2025 9:47 PM EST 01/04/2025 8:56 AM EST us Generic External Data Provider LAB MICROBIOLOGY - GENERAL ORDERABLES Final Result [facility] [address] [place] [phone] * Chlamydia/N. Gonorrhoeae RNA, TMA, Urogenitial (01/02/2025 9:47 PM EST) Only the most recent of2 resultswithin the time period is included. CT PCR NOT DETECTED Not Detect. [facility] Comment:A not detected test result does [...] psychologicalconsequences. NG PCR NOT DETECTED Not Detect. [facility] Comment:A not detected test result does [...] PM EST 01/02/2025 9:51 PM EST Narrative [facility] - 01/03/2025 2:32 AM EST Vaginal Generic External Data Provider LAB MICROBIOLOGY - GENERAL ORDERABLES Final Result Performing Organization Address [facility] Co de Phone Number [facility] [address] [place] [phone] * Wet prep, genital (01/02/2025 9:47 PM EST) Vaginal Fluid Vaginal structure / Unknown 01/02/2025 9:47 PM EST 01/02/2025 9:51 PM EST Comment:Vaginal Narrative [facility] - 01/02/2025 9:58 PM EST Trichomonas Prep Direct Microscopic Exam Trichomonas Prep No trichomonads or yeast seen Specimen Source: Vaginal Generic External Data Provider LAB MICROBIOLOGY - GENERAL ORDERABLES Final Result Performing Organization Address [facility] de Phone Number [facility] [address] [place] [phone] * (ABNORMAL) CBC auto differential (01/02/2025 2:34 PM EST) Only the most recent of2 resultswithin the time period is included. White Blood Count 5.9 4.8 - 10.8 X10*3/uL [facility] Red Blood Count 4.82 4.20 - 5.50 X10*6/uL [facility] Hemoglobin 13.4 12.0 - 16.0 g/dl [facility] Hematocrit 41.6 37.0 - 47.0 % [facility] Mean Corpuscular Volume 86.3 80.0 - 98.0 fL [facility] Mean Corpuscular Hemoglobin 27.8 27.0 - 33.0 pg [facility] Mean Corpuscular HGB Conc 32.2 31.0 - 35.0 g/dl [facility] Red Cell Distribution Width 11.9 11.0 - 16.0 % [facility] Platelet Count 248 160 - 400 X10*3/uL [facility] Mean Platelet Volume 9.2(L) 9.4 - 12.3 fL [facility] Neutrophils Percent Auto 68.8 45 - 73 % [facility] Imm Gran Pct Auto 0.2 0.0 - 0.4 % [facility] Lymphocytes Percent Auto 24.4 20 - 40 % [facility] Monocytes Percent Auto 5.8 2 - 11 % [facility] Eosinophils Percent Auto 0.5 0 - 4 % [facility] Basophils Percent Auto 0.3 0 - 2 % [facility] NRBC Pct Auto 0.0 0.0 - 0.2 /100WBC [facility] Neutrophils Absolute Auto 4.1 2.0 - 8.3 x10*3/uL [facility] Imm Gran Abs Auto 0.01 0.00 - 0.03 X10*3/uL [facility] Lymphocytes Absolute Auto 1.4 1.2 - 4.9 X10*3/uL [facility] Monocytes Absolute Auto 0.3 0.1 - 1.2 X10*3/uL [facility] Eosinophils Absolute Auto 0.0 0.0 - 0.4 X10*3/uL [facility] Basophils Absolute Auto 0.0 0.0 - 0.2 X10*3/uL [facility] NRBC Abs Auto 0.000 0.0 - 0.012 X10*3/uL [facility] 01/02/2025 2:34 PM EST 01/02/2025 2:37 PM EST us Generic External Data Provider LAB BLOOD ORDERAB LES Final Result [facility] [address] [place] [phone] * Urinalysis w/reflex microscopic (01/02/2025 2:34 PM EST) Color Urine Yellow [facility] Appearance Urine Clear [facility] PH 7.5 5.0 - 9.0 [facility] Glucose Urine UA Negative Negative mg/dL [facility] Urine Blood Negative Negative [facility] Specific [place] - Urine 1.025 1.005 - 1.025 [facility] Urine Protein Negative Neg-Trace mg/dL [facility] Urine Ketones Trace Negative mg/dL [facility] Nitrite Urine Negative Negative [facility] Leukocyte Esterase Urine Negative Negative [facility] 01/02/2025 2:34 PM EST 01/02/2025 2:37 PM EST Narrative [facility] - 01/02/2025 2:43 PM EST [id number], Clean Catch us Generic External Data Provider LAB URINE ORDERAB LES Final Result [facility] [address] [place] [phone] * hCG, Total, Quantitative (01/02/2025 2:34 PM EST) Only the most recent of2 resultswithin the time period is included. HCG Quantitative <2 mIU/mL [facility] Comment:Weeks post LMP Appro ximate hCG(Last Menstrual Period) Range (mIU/ml)3 - 4 weeks 9 - 1304 - 5 weeks 75 - 2,6005 - 6 weeks 850 - 20,8006 - 7 weeks 4000 - 100,2007 - 12 weeks 11,500 - 289,17885 - 16 weeks 18,300 - 137,50725 - 29 weeks (2nd trimester) 1,400 - 53,72604 - 41 weeks (3rd trimester) 940 - [...] ORDERAB LES Final Result Performing Organization Address City/[facility]/ZIP Co de Phone Number [facility] [address] [place] [phone] * Magnesium (01/02/2025 2:34 PM EST) Pathologist [facility] Magnesium 2.2 1.6 - 2.6 mg/dL [facility] 01/02/2025 2:34 PM EST 01/02/2025 2:37 PM EST us Generic External Data Provider LAB BLOOD ORDERAB LES Final Result Performing Organization Address [facility] Co de Phone Number [facility] [address] [place] [phone] * (ABNORMAL) Comprehensive Metabolic Panel (01/02/2025 2:34 PM EST) Only the most recent of2 resultswithin the time period is included. Pathologist [facility] Sodium 138 135 - 145 mmol/L [facility] Potassium 3.9 3.3 - 5.1 mmol/L [facility] Chloride 105 96 - 108 mmol/L [facility] Carbon Dioxide 27 22 - 29 mmol/L [facility] Anion Gap 10(L) 12 - 20 [facility] Urea Nitrogen (BUN) 15 9 - 16 mg/dL [facility] Creatinine, Serum 1.03 0.5 - 1.4 mg/dL [facility] Creatinine Clr Calc Pharmacy 64.6 [facility] Comment:Provided height and weight: 154.94 cm,50.349 kg.eGFR (calculated from the MDRD study equation) and eCrCl(calculated from the Cockcroft-Gault equation) are based ondifferent parameters and may not yield comparable results.If eCrCl result is absurd, please check patient'sheight/weight. Estimated Glomerular Filt Rate >60 [facility] Comment:Chronic Kidney Disea se: Estimated GFR < 60 mL/min/1.60a2Hwfafm Kidney Disease: Estimated GFR < 15 mL/min/1.73m2 Glucose 97 60 - 115 mg/dL [facility] Calcium 9.7 8.4 - 10.2 mg/dL [facility] Bilirubin, Total 0.3 0.0 - 1.0 mg/dL [facility] Aspartate Amino Transferase 23 5 - 31 U/L [facility] Alanine Aminotransferase 19 0 - 31 U/L [facility] Total Protein 8.6(H) 6.5 - 8.0 g/dL [facility] Albumin Level 4.8 3.5 - 5.0 g/dL [facility] Alkaline Phosphatase 58 39 - 117 U/L [facility] 01/02/2025 2:34 PM EST 01/02/2025 2:37 PM EST us Generic External Data Provider LAB BLOOD ORDERAB LES Final Result [facility] [address] [place] [phone] * XR KUB and Upright 2 Views (01/02/2025 2:17 PM EST) Anatomical Region Laterality Modality Radiographic Marybeth ging 01/02/2025 2:17 PM EST Narrative 01/02/2025 3:04 PM EST ? [facility] ?[address] ?[place] [address] ?XRay Report ? Signed ? Patient: Radha,Lolly L ?MR#: [id number] ?? [id number] ? : 2000 ?Acct:[id number] ? Age/Sex: 24 / F ?ADM Date: 02/21/25 ? Loc: HO.ED ? Attending Dr: ? Ordering Physician: Ramona Tejeda ?? Date of Service: 01/02/25 ?? Procedure(s): XR KUB ?? Accession Number(s): [id number] ? cc: Ramona Tejeda; Mignon King MD [...] DD/ 1417 ? TD/TT: 01/02/25 1448 ? Person Investigator: ? Procedure Note Donlidiayoonkerriter, Image - 01/02/2025 [place] [id number] XRay Report Signed Patient: Lolly Garcia LMR#: [id number] : 2000Acct:[id number] Age/Sex: Date: 01/02/25 Loc: .ED Attending Dr: Ordering Physician: Ramona Tejeda Date of Service: 01/02/25 Procedure(s): XR KUB Accession Number(s): [id number] cc: Ramona Tejeda; Mignon King MD EXAMINATION: XR ABDOMEN KUB CLINICAL INDICATION: pain COMPARISON: None available. TECHNIQUE: AP view of the abdomen. FINDINGS: The bowel gas pattern is normal with no evidence of ileus or obstruction. No unusual soft tissue calcifications are noted. The bones are unremarkable. XR/XR KUB IMPRESSION: Unremarkable examination. Electronically signed by: Aung Farnsworth MD 01/02/2025 03:01 PM [facility] Dictated By: Aung Farnsworth MD Signed By: <Electronically signed by Aung Farnsworth MD in OV> 01/02/25 1501 DD/ 1417 TD/TT: 01/02/25 1448 Person Investigator: [facility] External Provider IMG XR PROCEDURES Final Result * Prothrombin Time-INR (12/31/2024 9:28 PM EST) Prothrombin Time 12.1 10.9 - 12.4 SEC [facility] INTERNATIONAL NORM RATIO 1.0 0.9 - 1.1 [facility] Comment:INTERNATIONAL NORMAL IZED RATIO (INR) REFERENCE [...] ORDERAB LES Final Result Performing Organization Address [facility] Co de Phone Number [facility] [address] [place] [phone] * Lipase (12/31/2024 9:28 PM EST) Lipase 18 8 - 78 U/L [facility] 12/31/2024 9:28 PM EST 12/31/2024 9:35 PM EST Generic External Data Provider LAB BLOOD ORDERAB LES Final Result Performing Organization Address [facility] Co de Phone Number [facility] [address] [place] [phone] * Chlamydia/N. Gonorrhoeae RNA, TMA, Throat (10/30/2024 11:04 AM EST) C. Trachomatis RNA TMA, Throat NOT DETECTED [facility] N. gonorrhoeae RNA TMA, Throat NOT DETECTED [facility] Comment:REFERENCE RANGE: NOT DETECTEDMethodology: [employer] Supervisor Mediated Amplification (TMA) to detect RNA.The analytical performance characteristics of this assayhave been determined by [facility]. The modificationshave not been cleared or approved by the FDA. This assay hasbeen validated pursuant to the CLIA regulations and is usedfor clinical purposes.For additional information, please refer tohttps://education.[employer]/faq/XHP882(This link is being provided for informational/educationalpurposes only.)THIS TEST WAS PERFORMED AT:[employer] [id number] [place] [id number] HOFFMANN MD,PHD,JL 10/30/2024 11:0 4 AM EST 10/30/2024 4:17 PM EST [facility] MICROBIOLOGY - GENERA L ORDERABLES Final Result Performing Organization Address [facility]/ZIP Co de Phone Number [facility] [address] [place] [phone] * Syphilis Screen (10/30/2024 10:59 AM EST) Syphilis Screen Nonreactive Nonreactive [facility] Blood Venous blood specimen / Unknown 10/30/2024 10:59 AM EST 10/30/2024 1:11 PM EST [facility] LAB BLOOD ORDERABLES Carol l Result Performing Organization Address [facility] Co de Phone Number [facility] [address] [place] [phone] * HIV-1/2 Antigen and Antibodies, Fourth Generation, with Reflexes (10/30/2024 10:59 AM EST) HIV AB/AG Nonreactive Nonreactive [facility] Comment:HIV-1 p24 Ag and/or HIV-1/HIV-2 Ab not detected.A test result that is nonreactive does not exclude thepossibility of exposure to or infection with HIV-1 and/orHIV-2. Nonreactive results in this assay for individualswith prior exposure to HIV-1 and/or HIV-2 may be due toantigen and antibody levels that are below the limit ofdetection of this assay.The Tap.MeniLocalView HIV Ag/Ab Combo assay result andsupplemental assay results should be interpreted inconjunction with the patient's clinical presentation,history and other laboratory results. If the results areinconsistent with clinical evidence, additional testing issuggested to confirm the result. Blood Venous blood specimen / Unknown 10/30/2024 10:59 AM EST 10/30/2024 1:16 PM EST Ashley Addison [facility] LAB BLOOD ORDERABLES Carol l Result Performing Organization Address [facility]/ZIP Co de Phone Number [facility] [address] [place] [phone] * Culture, Urine, Routine (10/30/2024 10:56 AM EST) Urine Urine specimen obtained by clean catch procedure / Unknown 10/30/2024 10:56 AM EST 10/30/2024 4:47 PM EST Comment:UACC Narrative [facility] - 11/01/2024 11:01 AM EST Urine Culture No growth. Specimen Source: Urine clean catch [facility] MICROBIOLOGY - GENERA L ORDERABLES Final Result Performing Organization Address [facility] Co de Phone Number [facility] [address] [place] [phone] * POCT urinalysis dipstick manually resulted (10/30/2024 10:53 AM EST) Color, UA Yellow Clarity, UA Clear Glucose, UA Negative Bilirubin, UA Negative Ketones, UA Negative Spec Grav, UA 1.020 Blood, UA Negative Negative, None Detected pH, UA 7.0 Protein, UA Negative Urobilinogen, UA 0.2 Leukocytes, UA Negative Negative, Rare, Trace Nitrite, UA Negative Negative, None Detected Appearance, UA clear QC Media Lot # [id number] Lot# Expiration Date Urine 10/30/2024 10:5 3 AM EST Ashley Addison CNM POINT OF CARE TEST ENTER/ EDIT ORDERABLES Final Result * Hepatitis C Antibody with Reflex to HCV, RNA, Quantitative, Real-Time PCR (09/01/2024 10:15 AM EDT) Hepatitis C Antibody Nonreactive Nonreactive [facility] Comment:Antibodies to HCV no t detected; does not exclude early acuteHCV infection. 09/01/2024 10:1 5 AM EDT 09/01/2024 12:05 PM EDT Mignon Hays MD LAB BLOOD ORDERAB LES Final Result [facility] [address] [place] [phone] * Pap with NG,CT, Trich (01/30/2024 10:56 AM EDT) Trichomonas (NAAT) NOT DETECTED NOT DETECTED [facility] Comment:The analytical perfo rmance characteristics of thisassay have been determined by [employer]. Themodifications have not been cleared or approved bythe FDA. This assay has been validated pursuant to theCLIA regulations and is used for clinical purposes.For additional information, please refer tohttp://education.Jemstep.Vaprema/faq/Trichomonastma(This link is being provided for information/educational purposes only.)THIS TEST WAS PERFORMED AT:[facility] [place] [id number] SIDDIQI MD CTNG Ref Lab NOT DETECTED NOT DETECTED [facility] NG Ref Lab NOT DETECTED NOT DETECTED [facility] Pap Vial Vaginal structure / Unknown 01/30/2024 10:56 AM EDT 02/04/2024 2:19 PM EDT Narrative [facility] - 02/06/2024 1:53 PM EDT Collection Date: [id number]: [id number] by: TANI Dietz: Vagina Ashley Addison CNM LAB CYTOLOGY ORDERABLES F inal Result [facility] [address] [place] [phone] from Last 3 Months or Most Recently Relevant to Health Maintenance Insurance [address] [place], [place] [id number] C[employer] Care Teams Outside Rigger Relationship Specialty Start Date End Date Mignon King MD [address] [place] [address] PCP - General Internal Medicine 08/31/23
--- OUTSIDE RECORDS SUMMARY | 2025-01-09 01:00 | XMS_ITS | Encounter Summary ---
Author Organization [employer] Address [address] [place] [address] Care Team Providers Care Lumber Scaler Name Role Phone Mignon King MD Primary Care Pro vider Reason for Visit * Reason Comments Med Refill Encounter Details Date Type Department Care Team ([facility] st Contact Info) Description 05/16/2024 Refill [facility] [address] [place] [address] Mignon King MD [address] [place] [address] On pre-exposure prophylaxis for HIV (Primary Dx) Social History Tobacco Use Types [...] encounter Miscellaneous Notes * Telephone Encounter - Mignon Hays MD - 05/22/2024 3:47 PM EDT Pt previously refused med documented in this encounter Plan of Treatment Not on file documented as of this encounter Visit Diagnoses Diagnosis On pre-exposure prophylaxis for HIV- Primary documented in this encounter Additional Health Concerns Assessment Noted Time PHQ-9 Depression Total Score: 4 03/21/20 2:29 PM EDT documented as of this encounter Care Teams Lumber Scaler Relationship Specialty Start Date End Date Mignon King MD [address] [place] [phone] PCP - General Internal Medicine 08/31/23 documented as of this encounter
--- OUTSIDE RECORDS SUMMARY | 2025-01-09 01:00 | XMS_ITS | Encounter Summary ---
Author Organization [employer] Address [address] [place] [address] [address] [place] [address] Care Team Providers Care Insurance Sales Supervisor Name Role Phone Clair Johnson ELIZABET Primary Care Provider [phone] Mignon King MD Primary Care Pro vider Encounter Details Date Type Department Care Team ([facility] st Contact Info) Description 05/08/2023 Orders Only [facility] [address] [place] [phone] Campos Narvaez MD [address] [place] [address] BV (bacterial vaginosis) Social History Tobacco Use Types Packs/Day Years [...] suspected to have Coronavirus/COVID-19? No / Unsure 05/02/2023 5:59 PM EDT documented as of this encounter Plan of Treatment Not on file documented as of this encounter Visit Diagnoses Diagnosis BV (bacterial vaginosis) Unspecified vaginitis and vulvovaginitis documented in this encounter Additional Health Concerns Assessment Noted Time PHQ-9 Depression Total Score: 4 03/21/20 2:29 PM EDT documented as of this encounter Care Teams Insurance Sales Supervisor Relationship Specialty Start Date End Date Clair Johnson FNP [address] [place] [address] PCP - General Family Medicine 08/22/22 08/30/23 Mignon King MD [address] [place], [place] [phone] PCP - General Internal Medicine 08/31/23 documented as of this encounter
--- OUTSIDE RECORDS SUMMARY | 2025-01-09 01:00 | XMS_ITS | Encounter Summary ---
Author Organization [employer] Address [address] [place] [address] 7 [place] [address] Care Team Providers Care Farmer Vegetable Name Role Phone Clair Johnson Primary Care Provider [phone] Mignon King MD Primary Care Pro vider Reason for Visit * Reason Onset Date Comments Results 01/12/2023 Encounter Details Date Type Department Care Team ([facility] st Contact Info) Description 01/12/2023 Telephone [facility] [address] [place] [address] Clair Johnson FNP [address] [place] [address] Results Social History Tobacco Use Types Packs/Day [...] AM EST documented as of this encounter Miscellaneous Notes * Telephone Encounter - Shawanda Wolf RN - 01/15/2023 2:11 PM EST T/C placed to pt re below lab results and POC. Pt would like pills instead of gel. Pt verbalized understanding and denied having any further questions or concerns at this time. * Telephone Encounter - Leonard Goncalvesos - 01/12/2023 10:35 AM EST Tc from pt requesting a call back regarding lab results. Please contact pt at [phone] documented in this encounter Plan of Treatment Not on file documented as of this encounter Visit Diagnoses Not on filedocumented in this encounter Care Teams Farmer Vegetable Relationship Specialty Start Date End Date Clair Johnson FNP [address] [place] [address] PCP - General Family Medicine 08/22/22 08/30/23 Mignon King MD [address] [place] [address] PCP - General Internal Medicine 08/31/23 documented as of this encounter
--- OUTSIDE RECORDS SUMMARY | 2025-01-09 01:00 | XMS_ITS | Encounter Summary ---
Author Organization [employer] [facility] Address [address] [place] [address] Care Team Providers Care Reeling Machine Operator Name Role Phone Clair Johnson ELIZABET Primary Care Provider [phone] Mignon King MD Primary Care Pro vider Reason for Visit * Reason Comments Med Refill Encounter Details Date Type Department Care Team (Late st Contact Info) Description 05/30/2023 Refill [facility] [address] [place] [address] Mignon King MD [address] [place] [address] Social History Tobacco Use Types Packs/Day Years [...] Time PHQ-9 Depression Total Score: 4 03/21/20 23 2:29 PM EDT documented as of this encounter Care Teams Reeling Machine Operator Relationship Specialty Start Date End Date Clair Johnson FNP [address] [place] [address] PCP - General Family Medicine 08/22/22 08/30/23 Mignon King MD [address] [place] [address] PCP - General Internal Medicine 08/31/23 documented as of this encounter
--- OUTSIDE RECORDS SUMMARY | 2025-01-09 01:00 | XMS_ITS | Data Portability ---
Author Organization [place] [facility] , [id number] Address [address] [place] [address] Assessment No assessment recorded. Plan of Treatment Reminders Order Date Submit Date Provider Last Modified By Organization Details Last Modified Time Details Appointments None record ed. Lab None record ed. Referral None record ed. Procedures None record ed. Surgeries None record ed. Imaging None record ed. Medication Orders None record ed. Patient TargetsNo targets recorded. Patient InstructionsNo instructions recorded. Reason for Referral None Reported. Procedures Surgical History Date Name Laterality Status Provider Name and Address Organization Details Recorded Time OC-UDS Send Out Template NON DOT completed Aziza Ida [place] [facility] 08/13/2024 14:23:57 Imaging Results None recorded. Procedure Notes None recorded. Medical Equipment None Reported. Vitals None Recorded Social History None recorded. Functional Status None recorded. Mental Status None recorded. Family History Nothing Reported. Medical History No medical history recorded. Gynecological HistoryNo gynecological history recorded. Obstetrics History GPAL:G 0 P 0 0 0 0 Past Encounters Encounter ID Performer Location Encounter Start Date Encounter Closed Date Diagnosis/Indication Diagnosis SNOMED-CT Code Diagnosis ICD10 Code Diagnosis Note [id number] [place] [id number] [phone] 08/13/2024 13:37:24 08/13/2024 14:24:45 History and physical examination, occupation 761911251 Z02.1 Health Concerns Section Related Observation LastModified by Organization Detai ls LastModified Time None Recorded Concern Status LastModified by Organization Details LastModified Time None Recorded Advance Directives Directive None Recorded Payers Encounter Date Sequence Insurance Name Policy Number Policy Trujillo Covered Member ID Trujillo Member ID Guarantor Name 08/13/2024 OC-ESCREEN [employer] n [[id number]] OPUSING Lolly Garcia OBGyn Episode No OBEpisode recorded.
--- OUTSIDE RECORDS SUMMARY | 2025-01-09 01:00 | XMS_ITS | Encounter Summary ---
Author Organization [employer] Address [address] [place] [address] 7t [place] [address] Care Team Providers Care Dev Ops Engineer Name Role Phone Clair Johnson Primary Care Provider [phone] Mignon King MD Primary Care Pro vider Encounter Details Date Type Department Care Team (Late st Contact Info) Description 08/16/2023 Orders Only [facility] [address] [place] [address] Campos Narvaez MD [address] [place] [address] Social History Tobacco Use Types Packs/Day Years [...] documented as of this encounter Care Teams Dev Ops Engineer Relationship Specialty Start Date End Date Clair Johnson FNP [address] [place] [address] PCP - General Family Medicine 08/22/22 08/30/23 Mignon King MD [address] [place] [address] PCP - General Internal Medicine 08/31/23 documented as of this encounter
--- OUTSIDE RECORDS SUMMARY | 2025-01-09 01:00 | XMS_ITS | Encounter Summary ---
Author Organization [employer] Address [address] [place] [address] Care Team Providers Care Stallion Manager Name Role Phone Mignon King MD Primary Care Pro vider Reason for Visit * Reason Comments Med Refill Encounter Details Date Type Department Care Team (Late st Contact Info) Description 11/01/2023 Refill [facility] [address] [place] [phone] Mignon King MD [address] [place] [address] Social History Tobacco Use Types Packs/Day Years [...] documented as of this encounter Care Teams Stallion Manager Relationship Specialty Start Date End Date Mignon King MD [address] [place] [address] PCP - General Internal Medicine 08/31/23 documented as of this encounter
--- OUTSIDE RECORDS SUMMARY | 2025-01-09 01:00 | XMS_ITS | Encounter Summary ---
Author Organization [employer] Address [address] [place] [address] Care Team Providers Care Dipper Clock And Watch Hands Name Role Phone Mignon King MD Primary Care Pro vider Reason for Visit * Reason Onset Date Comments Nurse Triage 09/08/2024 Encounter Details Date Type Department Care Team ([facility] st Contact Info) Description 09/08/2024 Telephone [facility] [address] [place] [address] Mignon King MD [address] [place] [address] Nurse Triage Social History Tobacco Use Types [...] encounter Miscellaneous Notes * Telephone Encounter - Hope Singh, MARSHMALLOW RUNNER - 09/08/2024 9:01 AM EDT Triage call returned with BLLS #[id number].Patient reports two days of burning with urination and that she is concerned with rash within vagina. Patient reports white wu streaks no blisters. Reports that this is different then herpes outbreak. No fever or flank pain. Had some itching at beginning and now just with burning with urination. Patient reports unprotected intercourse 2.5 months ago that seemed to cause issue, Not using any douches or lubricants that may be contributing to rash . Disposition reviewed and patient in agreement with plan FOZIA/Xu SIEGEL today at 145pm. Multiple (2) protocols were used on this call. Disposition for Call: See in Office or Video Visit Today Protocol Used: Urination Pain - Female (Adult) Protocol-Based Disposition: See in Office or Video Visit Today Video visit not offered Positive Triage Question: * All other females with painful urination, or patient wants to be seen * All higher-acuity triage questions were negative Care Advice Discussed: * Drink Extra Fluids * Reasons To Call Back - Fever or back pain occurs - You become worse Protocol Used: Vaginal Symptoms (Adult) Protocol-Based Disposition: See in Office or Video Visit Today or Tomorrow Positive Triage Question: * Rash (e.g., redness, tiny bumps, sore) of genital area and present > 24 hours * All higher-acuity triage questions were negative Care Advice Discussed: * Genital Hygiene * Reasons To Call Back - Fever or abdomen pain occur - You become worse * Telephone Encounter - Chano Rogers - 09/08/2024 8:37 AM EDT Symptoms: Rash or Redness on One Body Area Only, Urination Pain Outcome: Schedule a same-day appointment or talk to a nurse or provider today Reason: Caller denied all higher acuity questions documented in this encounter Plan of Treatment Not on file documented as of this encounter Visit Diagnoses Not on filedocumented in this encounter Additional Health Concerns Assessment Noted Time PHQ-9 Depression Total Score: 4 03/21/20 2:29 PM EDT documented as of this encounter Care Teams Dipper Clock And Watch Hands Relationship Specialty Start Date End Date Mignon King MD [address] [place] [address] PCP - General Internal Medicine 08/31/23 documented as of this encounter
--- OUTSIDE RECORDS SUMMARY | 2025-01-09 01:00 | XMS_ITS | Encounter Summary ---
Author Organization [employer] [facility] Address [address] [place] [address] [address] [place] [address] Care Team Providers Care Broadcast Designer Name Role Phone Clair Johnson Primary Care Provider [phone] Mignon King MD Primary Care Pro vider Encounter Details Date Type Department Care Team (Late st Contact Info) Description 04/07/2023 Orders Only [facility] [address] [place] [address] Clair Johnson FNP [address] [place] [address] Social History Tobacco Use Types Packs/Day Years [...] suspected to have Coronavirus/COVID-19? No / Unsure 04/05/2023 3:24 PM EDT documented as of this encounter Plan of Treatment Not on file documented as of this encounter Visit Diagnoses Not on filedocumented in this encounter Additional Health Concerns Assessment Noted Time PHQ-9 Depression Total Score: 4 03/21/20 23 2:29 PM EDT documented as of this encounter Care Teams Broadcast Designer Relationship Specialty Start Date End Date Clair Johnson FNP [address] [place] [address] PCP - General Family Medicine 08/22/22 08/30/23 Mignon King MD [address] [place] [address] PCP - General Internal Medicine 08/31/23 documented as of this encounter
--- OUTSIDE RECORDS SUMMARY | 2025-01-09 01:00 | XMS_ITS | Encounter Summary ---
Author Organization [employer] Address [address] [place] [address] Care Team Providers Care Polisher Hand Name Role Phone Mignon King MD Primary Care Pro vider Reason for Visit * Reason Onset Date Comments Call Back Request 10/30/2023 Encounter Details Date Type Department Care Team ([facility] st Contact Info) Description 10/30/[address] [facility] [address] [place] [address] Mignon King MD [address] [place] [address] Call Back Request Social History Tobacco Use Types Packs/Day Years [...] Telephone Encounter - Shawanda Wolf RN - 10/31/2023 9:38 AM EST Telephone call returned to patient in regards to below message. Patient feels still has yeast infection and wants more medication. Was treated [facility]. Patient verbalized understanding and denied having any further questions or concerns at this time. * Telephone Encounter - Sherly Sanzo - 10/31/2023 8:12 AM EST Tc from pt, pt states is desperate need her medication, and start work at 10am * Telephone Encounter - Sherly Sanzo - 10/30/2023 3:18 PM EST Tc from pt requesting a call back in regards medications, pt don't know the name of the medication and denied information to fiction and nonfiction prose writer. documented in this encounter Plan of Treatment Not on file documented as of this encounter Visit Diagnoses Not on filedocumented in this encounter Additional Health Concerns Assessment Noted Time PHQ-9 Depression Total Score: 4 03/21/20 2:29 PM EDT documented as of this encounter Care Teams Polisher Hand Relationship Specialty Start Date End Date Mignon King MD [address] [place] [address] PCP - General Internal Medicine 08/31/23 documented as of this encounter
[2025-01-09 01:09] LABS: Appearance Urine Turbid; Color Urine Yellow; Glucose Urine UA Negative (Negative); Leukocyte Esterase Urine Negative (Negative); Nitrite Urine Negative (Negative); Urine Blood Negative (Negative); Urine Ketones Negative (Negative); Urine Protein Negative (Neg-Trace)
[2025-01-09 01:11] LABS: UPreg QC Valid YES; Urine Pregnancy NEGATIVE (NEGATIVE)
--- NOTE | 2025-01-09 01:29 | PC.NURSE ---
Provider into assess pt, pt awaiting labs results.
--- NOTE | 2025-01-09 01:30 | ED_ITS ---
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 Patient states that she had oral sex with a female last night and this morning she noticed a small bump on her tongue that has since gone away. She is also endorsing sore throat. She denies fevers, chills, chest pain, shortness breath, abdominal pain, nausea, vomiting, urinary symptoms. Patient states that she is currently taking doxycycline which she was prescribed on 01/02 after she presented here for abdominal discomfort. I reviewed chart and patient tested positive for BV however gonorrhea, chlamydia and trich were negative Related Data Previous Rx's ?Medication ?Instructions ?Recorded cephalexin 500 mg capsule 500 mg PO QID 7 days #28 caps 03/15/22 valacyclovir 1 gram tablet 1,000 mg PO BID 7 days #14 tabs 03/15/22 (Valtrex) cephalexin 500 mg capsule 500 mg PO QID 7 days #28 caps 05/31/22 ibuprofen 600 mg tablet 600 mg PO Q8H 14 days #42 tabs 05/31/22 valacyclovir 1 gram tablet 1,000 mg PO BID 7 days #14 tabs 05/31/22 ciprofloxacin HCl 500 mg tablet 500 mg PO BID #14 tabs 12/01/23 ondansetron 4 mg disintegrating 4 mg PO Q8H PRN nausea and 12/01/23 tablet vomiting #10 tabs doxycycline hyclate 100 mg capsule 100 mg PO BID 7 days #14 caps 01/09/24 cephalexin 500 mg capsule 500 mg PO QID #28 caps 05/25/24 fluconazole 150 mg tablet 150 mg PO Q3D 2 doses #2 tabs 05/25/24 fluconazole 150 mg tablet 150 mg PO Q3D 1 dose #1 tab 06/13/24 clotrimazole 2 % vaginal cream 1 appful vaginal BEDTIME 3 days 06/15/24 (Clotrimazole 3 Day) #21 grams bacitracin 500 unit/gram topical 1 appl topical TID #30 grams 07/31/24 ointment doxycycline monohydrate 100 mg 100 mg PO BID #13 caps 08/07/24 capsule doxycycline hyclate 100 mg tablet 100 mg PO BID #13 tabs 01/02/25 metronidazole 500 mg tablet 500 mg PO BID 7 days #14 tabs 01/09/25 Allergies Allergy/AdvReac Type Severity Reaction Status Date / Time No Known Allergies Allergy Verified 01/08/25 21:36 Review of Systems Review of Systems: Yes all other systems are reviewed and are negative PMFSH Social History Social History Smoked in Last 30 Days: No Use of substances other than those prescribed or required for medical reasons: No Advance Directives: No Advance Directives Information Provided: Yes Do you have a plan to hurt others: No Plan Physical Exam ED Vital Signs: Vital Signs - 24 hr 01/08/25 21:34 01/09/25 00:41 01/09/25 01:58 Temperature 98.5 F 98.4 F 98.4 F Pulse Rate 73 77 77 Respiratory Rate 16 18 18 Blood Pressure 106/55 L 127/72 127/72 Pulse Oximetry 100 100 100 Oxygen Delivery Method Room Air Room Air BMI result Body Mass Index 20.8 Well-appearing female in no acute distress A&O x4; normal speech and cognition Oropharynx clear without exudate; tongue and oral mucosa clear Lungs clear to auscultation bilaterally Normal S1-S2 regular rhythm Abdomen is soft nontender nondistended Medical Decision Making Medical Decision Making MDM Narrative: 24-year-old female presenting for sore throat and oral complaint - believe that patient is concerned for STD in the setting of recent sexual encounter -given reassuring physical exam I do not suspect any oral pathology -patient does have a sore throat and could have a viral pharyngitis versus strep pharyngitis -strep swab ordered Lab interpretation: -negative test -strep swab negative I reviewed patient's prior presentations and she did test positive for bacterial vaginosis. Patient is currently taking doxycycline however metronidazole has better coverage for bacterial vaginosis. I instructed her to stop taking doxycycline and sent a script for metronidazole to her pharmacy I recommended she follow up with her PCP in the next 24-48 hours for reassessment and gave her return precautions RN discharged patient prior to giving metronidazole. I updated pt's script to complete course Lab Data Labs: Lab Results 01/09/25 01/09/25 Range/Units 00:45 01:00 Urine Test NEGATIVE (NEGATIVE) S. pyogenes GrpA [place] Negative (Negative) Discharge Plan Discharge Clinical Impression: Concern about STD in female without diagnosis, Bacterial vaginosis Patient Disposition: Home, Self-Care Additional Instructions: Stop taking doxycycline and begin taking metronidazole. Prescription was sent to pharmacy Please follow up with your primary care provider in the next 24-48 hours for reassessment If you develop any new or worse symptoms please return to emergency department Prescriptions: New metronidazole 500 mg tablet 500 mg PO BID 7 Days Qty: 14 0RF Discontinued metronidazole 500 mg tablet 500 mg PO BID 7 Days Qty: 14 0RF metronidazole 500 mg tablet 500 mg PO BID Qty: 13 0RF fluconazole 150 mg tablet 150 mg PO ONCE Qty: 1 0RF Rx Instructions: administer on day 3 of therapy No Action valacyclovir 1 gram tablet 1,000 mg PO BID 7 Days Qty: 14 0RF cephalexin 500 mg capsule 500 mg PO QID 7 Days Qty: 28 0RF ibuprofen 600 mg tablet 600 mg PO Q8H 14 Days Qty: 42 0RF cephalexin 500 mg capsule 500 mg PO QID 7 Days Qty: 28 0RF valacyclovir [Valtrex] 1 gram tablet 1,000 mg PO BID 7 Days Qty: 14 0RF cephalexin 500 mg capsule 500 mg PO QID Qty: 28 0RF fluconazole 150 mg tablet 150 mg PO Q3D Qty: 2 0RF Rx Instructions: may repeat second dose 72 hrs after first dose if symptoms persist fluconazole 150 mg tablet 150 mg PO Q3D Qty: 1 0RF Rx Instructions: Take on 06/16/2024 Clotrimazole 3 Day 2 % cream 1 appful vaginal BEDTIME 3 Days Qty: 21 0RF bacitracin 500 unit/gram ointment 1 appl topical TID Qty: 30 0RF doxycycline monohydrate 100 mg capsule 100 mg PO BID Qty: 13 0RF doxycycline hyclate 100 mg tablet 100 mg PO BID Qty: 13 0RF ondansetron 4 mg tablet,disintegrating 4 mg PO Q8H PRN (Reason: nausea and vomiting) Qty: 10 0RF ciprofloxacin HCl 500 mg tablet 500 mg PO BID Qty: 14 0RF doxycycline hyclate 100 mg capsule 100 mg PO BID 7 Days Qty: 14 0RF Stand Alone Forms: Work/School Release Interventions: ED Discharge Assessment Last Done: 01/09/25 01:58 Discharge Date/Time: 01/09/25 01:59 Print Language: Macedonian
[2025-01-09 01:44] LABS: IDNOW Serial# 58CA691E; Strep A Nucleic Acid Negative (Negative)
--- NOTE | 2025-01-09 01:57 | PC.NURSE ---
reviewed discharge instructions with pt. pt verbalized understanding. no sign of distress.
[2025-01-09 01:58] VITALS: BP 127/72; PULSE 77; RESP 18; TEMP 36.9; O2SAT 100
--- NOTE | 2025-01-09 02:08 | PC.NURSE ---
pt let prior to being able to give medication, Provider aware.
== END 2025-01-09 01:59 | disposition home or self-care (01) ==
PROVIDERS: Emergency Provider Student in an Organized Health Care Education/Training Program; PCP Student in an Organized Health Care Education/Training Program
DX: N76.0 Acute vaginitis (principal); J02.9 Acute pharyngitis, unspecified; Z20.2 Contact with and (suspected) exposure to infections with a predominantly sexual mode of transmission; Z79.899 Other long term (current) drug therapy
CPT/HCPCS: 81003; 81025; 87651; 99283; 99284

== ENCOUNTER 2025-01-29 | Outpatient (REF) | payer MEDICAID, SELFPAY ==
[2025-01-30 10:50] LABS: Bacterial Vaginosis PCR NEGATIVE (Negative); Candida Group PCR NOT DETECTED (Not Detect); Candida glab krusei PCR NOT DETECTED (Not Detect); Trichomonas vaginalis PCR NOT DETECTED (Not Detect)
[2025-01-30 11:22] LABS: CT PCR NOT DETECTED (Not Detect.); NG PCR NOT DETECTED (Not Detect.)
[2025-02-02 20:29] LABS: C. Trachomatis RNA TMA, Throat NOT DETECTED; N. gonorrhoeae RNA TMA, Throat NOT DETECTED
== END 2025-01-29 00:01 | disposition home or self-care (01) ==
LOC: HO.HHCLNP
PROVIDERS: Visit Provider Family Medicine
DX: N89.8 Other specified noninflammatory disorders of vagina (principal); J02.9 Acute pharyngitis, unspecified
CPT/HCPCS: 81515; 87491; 87591

== ENCOUNTER 2025-02-24 18:34 | Outpatient (REF) | payer MEDICAID, SELFPAY ==
--- OUTSIDE RECORDS SUMMARY | 2025-02-24 19:09 | XMS_ITS | Encounter Summary ---
Author Organization [employer] Address [address] [place] [address] 7 [place] [address] Care Team Providers Care Room Service Supervisor Name Role Phone Clair Johnson Primary Care Provider [phone] Mignon King MD Primary Care Pro vider Reason for Visit * Reason Onset Date Comments Results 01/12/2023 Encounter Details Date Type Department Care Team ([facility] st Contact Info) Description 01/12/2023 Telephone [facility] MED[facility]INE [address] [place] [address] Clair Johnson FNP [address] [place] [address] Results Social History Tobacco Use Types Packs/Day [...] regarding lab results. Please contact pt at [phone] documented in this encounter Plan of Treatment Not on file documented as of this encounter Visit Diagnoses Not on filedocumented in this encounter Care Teams Room Service Supervisor Relationship Specialty Start Date End Date Clair Johnson FNP [address] [place] [address] PCP - General Family Medicine 08/22/22 08/30/23 Mignon King MD [address] [place] [address] PCP - General Internal Medicine 08/31/23 documented as of this encounter
--- OUTSIDE RECORDS SUMMARY | 2025-02-24 19:09 | XMS_ITS | Data Portability ---
Author Organization [employer] [facility] [id number] Address [address] [place] [address] Assessment No assessment recorded. Plan of Treatment [...] Out Template NON DOT completed Aziza Ida [employer] [facility] 08/13/2024 14:23:57 Imaging Results None recorded. [...] SNOMED-CT Code Diagnosis ICD10 Code Diagnosis Note [id number] [place] [id number] [id number] 08/13/2024 13:37:24 08/13/2024 14:24:45 History and physical examination, occupation [id number] Z02.1 Health Concerns Section Related Observation LastModified by Organization Detai ls LastModified Time None Recorded Concern Status LastModified by Organization Details LastModified Time None Recorded Advance Directives Directive None Recorded Payers Encounter Date Sequence Insurance Name Policy Number Policy Trujillo Covered Member ID Trujillo Member ID Guarantor Name 08/13/2024 OC-ESCREEN [employer] n [[id number]] OPUSING Lolly Garcia OBGyn Episode No OBEpisode recorded.
--- OUTSIDE RECORDS SUMMARY | 2025-02-24 19:09 | XMS_ITS | Encounter Summary ---
Author Organization [employer] [facility] Address [address] [place] [address] 7 [place] [address] Care Team Providers Care Pipe And Tank Fabricator Name Role Phone Clair Johnson Primary Care Provider [phone] Mignon King MD Primary Care Pro vider Encounter Details Date Type Department Care Team ([facility] st Contact Info) Description 01/15/2023 Orders Only [facility] MEDICINE [address] [place] [address] Clair Johnson FNP [address] [place] [address] Bacterial vaginitis (Primary Dx) Social History Tobacco [...] vulvovaginitis documented in this encounter Care Teams Pipe And Tank Fabricator Relationship Specialty Start Date End Date Clair Johnson FNP [address] [place] [address] PCP - General Family Medicine 08/22/22 08/30/23 Mignon King MD [address] [place] [address] PCP - General Internal Medicine 08/31/23 documented as of this encounter
--- OUTSIDE RECORDS SUMMARY | 2025-02-24 19:10 | XMS_ITS | Encounter Summary ---
Author Organization [employer] Address [address] [place] [address] 7t [place] [address] Care Team Providers Care Registered Respiratory Therapist Name Role Phone Clair Johnson ELIZABET Primary Care Provider [phone] Mignon King MD Primary Care Pro vider Encounter Details Date Type Department Care Team ([facility] st Contact Info) Description 05/08/2023 Orders Only [facility] [address] [place] [phone] Campos Narvaez MD [address] [place] [address] BV (bacterial vaginosis) Social History Tobacco Use [...] documented as of this encounter Care Teams Registered Respiratory Therapist Relationship Specialty Start Date End Date Clair Johnson FNP [address] [place] [address] PCP - General Family Medicine 08/22/22 08/30/23 Mignon King MD [address] [place], [place] [phone] PCP - General Internal Medicine 08/31/23 documented as of this encounter
--- OUTSIDE RECORDS SUMMARY | 2025-02-24 19:10 | XMS_ITS | Encounter Summary ---
Author Organization [employer] Address [address] [place] [address] Care Team Providers Care Phosphoric Acid Supervisor Name Role Phone Mignon King MD Primary Care Pro vider Reason for Visit * Reason Onset Date Comments Nurse Triage 09/08/2024 Encounter Details Date Type Department Care Team ([facility] st Contact Info) Description 09/08/2024 Telephone [facility] MEDICINE [address] [place] [address] Mignon King MD [address] [place] [address] Nurse Triage Social History Tobacco Use Types [...] Notes * Telephone Encounter - Hope Singh, PIERCING MACHINE OPERATOR - 09/08/2024 9:01 AM EDT Triage call returned with BLLS #[id number].Patient reports two days of burning with urination [...] documented as of this encounter Care Teams Phosphoric Acid Supervisor Relationship Specialty Start Date End Date Mignon King MD [address] [place] [address] PCP - General Internal Medicine 08/31/23 documented as of this encounter
--- OUTSIDE RECORDS SUMMARY | 2025-02-24 19:10 | XMS_ITS | Encounter Summary ---
Author Organization [employer] [facility] Address [address] [place] [address] 7 [place] [address] Care Team Providers Care Coffee Taster Name Role Phone Clair Johnson ELIZABET Primary Care Provider [phone] Mignon King MD Primary Care Pro vider Reason for Visit * Reason Comments Med Refill Encounter Details Date Type Department Care Team (Late st Contact Info) Description 03/19/2023 Refill [facility] MEDICINE [address] [place] [address] Indiana Toro, ANP [address] [place] [address] Herpes Social History Tobacco Use Types Packs/Day [...] complication documented in this encounter Care Teams Coffee Taster Relationship Specialty Start Date End Date Clair Johnson FNP [address] [place] [address] PCP - General Family Medicine 08/22/22 08/30/23 Mignon King MD [address] [place] [address] PCP - General Internal Medicine 08/31/23 documented as of this encounter
--- OUTSIDE RECORDS SUMMARY | 2025-02-24 19:10 | XMS_ITS | Encounter Summary ---
Author Organization [employer] Address [address] [place] [address] 7 [place] [address] Care Team Providers Care Urology Physician Name Role Phone Mignon King MD Primary Care Pro vider Reason for Visit * Reason Comments Med Refill Encounter Details Date Type Department Care Team (Late st Contact Info) Description 09/12/2024 Refill [facility] [address] [place] [address] Clair Johnson FNP [address] [place] [address] Social History Tobacco Use Types Packs/Day Years [...] documented as of this encounter Care Teams Urology Physician Relationship Specialty Start Date End Date Mignon King MD [address] [place] [phone] PCP - General Internal Medicine 08/31/23 documented as of this encounter
--- OUTSIDE RECORDS SUMMARY | 2025-02-24 19:10 | XMS_ITS | Encounter Summary ---
Author Organization [employer] Address [address] [place] [address] Care Team Providers Care Offset Press Operator Helper Name Role Phone Mignon King MD Primary Care Pro vider Reason for Visit * Reason Onset Date Comments Results 10/19/2023 Encounter Details Date Type Department Care Team ([facility] st Contact Info) Description 10/19/2023 Telephone [facility] MEDICINE [address] [place] [address] Mignon King MD [address] [place] [address] Results Social History Tobacco Use Types Packs/Day [...] on 10/12/2023 . Please contact Pt @ [phone] Turkish Speaker documented in this encounter Plan of Treatment Not on file documented as of this encounter Visit Diagnoses Not on filedocumented in this encounter Additional Health Concerns Assessment Noted Time PHQ-9 Depression Total Score: 4 03/21/20 2:29 PM EDT documented as of this encounter Care Teams Offset Press Operator Helper Relationship Specialty Start Date End Date Mignon King MD [address] [place] [address] PCP - General Internal Medicine 08/31/23 documented as of this encounter
--- OUTSIDE RECORDS SUMMARY | 2025-02-24 19:10 | XMS_ITS | Encounter Summary ---
Author Organization [employer] Address [address] [place] [address] Care Team Providers Care Spinning Machine Operator Name Role Phone Mignon King MD Primary Care Pro vider Reason for Visit * Reason Comments Med Refill Encounter Details Date Type Department Care Team (Late st Contact Info) Description 11/01/2023 Refill [facility] MEDICINE [address] [place] [address] Mignon King MD [address] [place] [address] Social History Tobacco Use Types Packs/Day Years [...] documented as of this encounter Care Teams Spinning Machine Operator Relationship Specialty Start Date End Date Mignon King MD [address] [place] [address] PCP - General Internal Medicine 08/31/23 documented as of this encounter
--- OUTSIDE RECORDS SUMMARY | 2025-02-24 19:10 | XMS_ITS | Encounter Summary ---
Author Organization [employer] Address [address] [place] [address] Care Team Providers Care Store Coordinator Name Role Phone Mignon King MD Primary Care Pro vider Reason for Visit * Reason Onset Date Comments Nurse Triage 10/29/2024 Encounter Details Date Type Department Care Team ([facility] st Contact Info) Description 10/29/2024 Telephone [facility] MEDICINE [address] [place] [address] Mignon King MD [address] [place] [address] Nurse Triage Social History Tobacco Use Types [...] past for bacterial vaginosis see reports 09/22/24 [facility]. Pt received depo injection 09/01/24. Pt reports [...] documented as of this encounter Care Teams Store Coordinator Relationship Specialty Start Date End Date Mignon King MD [address] [place] [address] PCP - General Internal Medicine 08/31/23 documented as of this encounter
--- OUTSIDE RECORDS SUMMARY | 2025-02-24 19:10 | XMS_ITS | Encounter Summary ---
Author Organization [employer] Address [address] [place] [address] [address] [place] [address] Care Team Providers Care Surveyor Hydrographic Name Role Phone Mignon King MD Primary Care Pro vider Reason for Visit * Reason Comments vaginal disconfort Encounter Details Date Type Department Care Team ([facility] st Contact Info) Description 02/24/2025 11:20 AM EDT Office Visit [facility] [address] [place] [phone] Anny Yee MD [address] [place] [address] Chronic vaginitis (Primary Dx); Family planning Social History Tobacco Use Types Packs/Day Years [...] PM EDT documented as of this encounter Last Filed Vital Signs Vital Sign Reading Time Taken Comments Blood Pressure 124/74 02/24/2025 11:04 AM EDT Pulse 78 02/24/2025 11:04 AM EDT Temperature 35.2 ??C (95.3 ??F) 02/24/2025 11:04 AM E DT Respiratory Rate 20 02/24/2025 11:04 AM EDT Oxygen Saturation 98% 02/24/2025 11:04 AM EDT Inhaled Oxygen Concentration - - Weight 53.6 kg (118 lb 3.2 oz) 02/24/2025 11:04 AM EDT Height - - Body Mass Index 22.33 01/13/2025 4:46 PM EST documented in this encounter Progress Notes * Anny Yee MD - 02/24/2025 11:20 AM EDT Subjective Patient ID: Lolly Garcia is a 24 y.o. female who presents to walk in clinic for vaginal disconfort. PT having discomfort with all sexual activity. Uses dial soap. No lotions or lubricants. Interestedin family planning. Has female partner and occasional male partner. No latex exposure. Has STI testing today for prep with [facility] in [place] [facility]. Seen in [facility] [place] 01/29/25 reporting vaginal sx x 3 days. She was seen earlier in January in [facility] [place] by Dr Narayan and was tx for sinusitis with abx.She was also given meds for BV in ED. She says she knows she did not take her abx correctly (thinksshe missed 3 doses). Review of Systems Genitourinary: Negative for difficulty urinating, dysuria, flank pain, genital sores, pelvic pain and vaginal discharge. Objective Visit Vitals BP 124/74 (BP Location: Left arm, Patient Position: Sitting, BP Cuff Size: Adult) Pulse 78 Temp 95.3 ??F (35.2 ??C) (Oral) Resp 20 Body mass index is 22.33 kg/m??. Physical Exam Genitourinary: Comments: Vulva dry with redness, no discharge Office Visit on 02/24/2025 Component Date Value Color, UA 02/24/2025 Light Yellow Clarity, UA 02/24/2025 Cloudy Glucose, UA 02/24/2025 Negative Bilirubin, UA 02/24/2025 Negative Ketones, UA 02/24/2025 Negative Spec Grav, UA 02/24/2025 1.020 Blood, UA 02/24/2025 Negative pH, UA 02/24/2025 6.5 Protein, UA 02/24/2025 Negative Urobilinogen, UA 02/24/2025 0.2 Leukocytes, UA 02/24/2025 Negative Nitrite, UA 02/24/2025 Negative Appearance, UA 02/24/2025 ligh yellow QC Media Lot # 02/24/2025 [id number] Lot# Expiration Date 02/24/2025 22,826 Preg Test, Ur 02/24/2025 Negative QC Media Lot # 02/24/2025 [id number] Lot# Expiration Date 02/24/2025 93,026 Problem List Items Addressed This Visit Chronic vaginitis - Primary Advise stop dial soap Wet mount normal, BV swab sent -Switch to pH balanced, sent free soap -Recommend trial of Uberlube for intercourse and Good Clean Love vaginal lubricant for daily dryness Relevant Orders Urinalysis, Complete, with Reflex to Culture Bacterial Vaginosis POCT urinalysis dipstick manually resulted (Completed) POCT , urine manually resulted (Completed) Family planning Hcg negative. Options discussed. She would like to try the patch. -riyalanmargie written 02/24/25 Relevant Medications norelgestromin-ethinyl estradiol (Xulane) 150-35 MCG/24HR documented in this encounter Miscellaneous Notes * Assessment & Plan Note - Anny Yee MD - 02/24/2025 1:15 PM EDT Associated Problem(s): Family planning Hcg negative. Options discussed. She would like to try the patch. -xulane written 02/24/25 * Assessment & Plan Note - Anny Yee MD - 02/24/2025 1:15 PM EDT Associated Problem(s): Chronic vaginitis Advise stop dial soap Wet mount normal, BV swab sent -Switch to pH balanced, sent free soap -Recommend trial of Uberlube for intercourse and Good Clean Love vaginal lubricant for daily dryness documented in this encounter Plan of Treatment Scheduled Orders Name Type Priority Associated Diagnoses Orde r Schedule Urinalysis, Complete, with Reflex to Culture Lab Routine Chronic vaginitis Expected: 02/24/2025 (Approximate), Expires: 02/24/2026 Bacterial Vaginosis Microbiology Routine Chronic vaginitis Expected: 02/24/2025 (Approximate), Expires: 02/24/2026 documented as of this encounter Procedures Procedure Name Priority Date/Time Associated Diagnosis Comments POCT URINALYSIS DIPSTICK Routine 02/24/2025 12:00 PM EDT Chronic vaginitis POCT , URINE Routine 02/24/2025 11:51 AM EDT Chronic vaginitis documented in this encounter Results * POCT urinalysis dipstick manually resulted (02/24/2025 12:00 PM EDT) Color, UA Light Yellow Clarity, UA Cloudy Glucose, UA Negative Bilirubin, UA Negative Ketones, UA Negative Spec Grav, UA 1.020 Blood, UA Negative Negative, None Detected pH, UA 6.5 Protein, UA Negative Urobilinogen, UA 0.2 Leukocytes, UA Negative Negative, Rare, Trace Nitrite, UA Negative Negative, None Detected Appearance, UA ligh yellow QC Media Lot # [id number] Lot# Expiration Date ,826 Urine 02/24/2025 12:0 0 PM EDT us Anny Yee MD POINT OF CARE TEST ENTER/E DIT ORDERABLES Final Result * POCT , urine manually resulted (02/24/2025 11:51 AM EDT) Preg Test, Ur Negative Negative, Indeterminate, None Detected, Invalid, Specimen unsatisfactory for evaluation, Weakly Positive QC Media Lot # [id number] Lot# Expiration Date 93,026 Urine 02/24/2025 11:5 1 AM EDT us Anny Yee MD POINT OF CARE TEST ENTER/E DIT ORDERABLES Final Result documented in this encounter Visit Diagnoses Diagnosis Chronic vaginitis- Primary Unspecified vaginitis and vulvovaginitis Family planning Other general counseling and advice for contraceptive management documented in this encounter Additional Health Concerns Assessment Noted Time PHQ-9 Depression Total Score: 4 03/21/20 2:29 PM EDT documented as of this encounter Care Teams Surveyor Hydrographic Relationship Specialty Start Date End Date Mignon King MD [address] [place] [address] PCP - General Internal Medicine 08/31/23 documented as of this encounter
--- OUTSIDE RECORDS SUMMARY | 2025-02-24 19:10 | XMS_ITS | Encounter Summary ---
Author Organization [employer] Address [address] [place] [address] [address] [place] [address] Care Team Providers Care Chemical Plant Worker Name Role Phone Clair Johnson Primary Care Provider [phone] Mignon King MD Primary Care Pro vider Encounter Details Date Type Department Care Team (Late st Contact Info) Description 08/16/2023 Orders Only [facility] [address] [place] [address] Campos Narvaez MD [address] [place] [address] Social History Tobacco Use Types Packs/Day Years [...] documented as of this encounter Care Teams Chemical Plant Worker Relationship Specialty Start Date End Date Clair Johnson FNP [address] [place] [address] PCP - General Family Medicine 08/22/22 08/30/23 Mignon King MD [address] [place] [address] PCP - General Internal Medicine 08/31/23 documented as of this encounter
--- OUTSIDE RECORDS SUMMARY | 2025-02-24 19:10 | XMS_ITS | Encounter Summary ---
Author Organization [employer] [facility] Address [address] [place] [address] Care Team Providers Care Lime Spreader Name Role Phone Clair Johnson ELIZABET Primary Care Provider [phone] Mignon King MD Primary Care Pro vider Reason for Visit * Reason Comments Med Refill Encounter Details Date Type Department Care Team (Late st Contact Info) Description 05/30/2023 Refill [facility] [address] [place] [address] Mignon King MD [address] [place] [address] Social History Tobacco Use Types Packs/Day Years [...] documented as of this encounter Care Teams Lime Spreader Relationship Specialty Start Date End Date Clair Johnson FNP [address] [place] [address] PCP - General Family Medicine 08/22/22 08/30/23 Mignon King MD [address] [place] [address] PCP - General Internal Medicine 08/31/23 documented as of this encounter
--- OUTSIDE RECORDS SUMMARY | 2025-02-24 19:10 | XMS_ITS | Clinical Summary ---
Author Organization [employer] Address [address] [place] [address] [address] [place] [address] Care Team Providers Care Biometric Screener Name Role Phone Mignon King MD Primary Care Pro vider Allergies No known active allergies Medications * This document contains information received from the source organization and may not represent a complete record from that organization. medroxyPROGEST ERone (Depo-Provera) 150 MG/ML injection Inject 1 mL (150 mg) into the muscle every 3 (three) months. 1 mL 3 09/01/20 24 Active fluticasone (Flonase) 50 MCG/ACT nasal spray Administer 1 spray into each nostril Once per day. 16 g 2 01/14/20 25 Active ibuprofen 400 MG tablet Take 1 tablet (400 mg) by mouth every 6 (six) hours if needed for moderate pain, mild pain or fever. 40 tablet 1 01/30/20 25 026 Active valACYclovir (Valtrex) 500 MG tabletIndicati ons:Herpes TAKE 1 TABLET BY MOUTH DAILY FOR PREVENTION BUT IF HAVING ACTIVE DISEASE TAKE 1 TABLET TWICE DAILY FOR 3 DAYS 36 tablet 02/19/20 25 Active norelgestromin -ethinyl estradiol (Xulane) 150-35 MCG/24HRIndica tions:Family planning Apply 1 patch each week for 3 weeks, then remove for 1 week. 3 patch 12 02/25/20 25 Active acetaminophen (Tylenol Extra Strength) 500 MG tablet Take 1 tablet (500 mg) by mouth every 6 (six) hours if needed for mild pain. 120 tablet 01/14/20 25 025 valACYclovir (Valtrex) 500 MG tabletIndicati ons:Herpes TAKE 1 TABLET BY MOUTH DAILY FOR PREVENTION but if having active disease take 1 tab twice a day for 3 days 36 tablet 01/14/20 25 025 Discontinued Naya 30 MG tablet Take 1 tablet by mouth. 07/12/20 22 025 Discontinued(Re order (will not trigger notification to Pharmacy)) Naya 30 MG tablet Take 1 tablet (30 mg) by mouth 1 (one) time for 1 dose. 1 tablet 02/19/20 25 025 Hospital, Clinic, or Other Facility Administered Medication Ordered Dose Route Frequency Start Date End Date Status medroxyPROGESTERone (Depo-Provera) injection 150 mgIndications:Family planning counseling 150 mg IM See admin instructions 01/30/2024 Active Active Problems Problem Noted Date Diagnosed Date Chronic vaginitis 02/24/2025 Assessment & Plan (02/24/2025 1:15 PM EDT): Advise stop dial soap Wet mount normal, BV swab sent -Switch to pH balanced, sent free soap -Recommend trial of Uberlube for intercourse and Good Clean Love vaginal lubricant for daily dryness Family planning 02/24/2025 Assessment & Plan (02/24/2025 1:15 PM EDT): Hcg negative. Options discussed. She would like to try the patch. -mika written 02/24/25 Subacute maxillary sinusitis 01/13/2025 Assessment & Plan (01/13/2025 7:38 PM EST): Bactrim DS x 7 days Rest (sleep at least 8 hours a night). Out of work x 2 days, I told her she could request [facility] documents and bring them to medical records. Hydrate with plenty of water (avoid caffeine and alcohol). Use saline nose drops to loosen mucus and the Flonase twice daily Take Acetaminophen (Tylenol??)/Ibuprofen as needed to reduce fever, headache, body aches or discomfort Gargle with salt water and use throat sprays/lozenges for throat pain. Use heated, humidified air. If you do not have a humidifier, take hot showers. Cover coughs and sneezes using the crook of your elbow. If you have a fever, stay home and away from others (self isolation) until fever-free for 72 hours (temperature should be less than 100??F without medication). Anxiety 12/03/2023 Cannabis abuse 12/03/2023 BV (bacterial vaginosis) 05/08/2023 Assessment & Plan (08/21/2023 8:41 PM EDT): 08/13/23 urine E coli 50 to 100 K klein sx ,gn/ch neg . Pt was seen here in [facility] and provider already started tx with flagyl [...] -if symptoms recurs will need to consider [facility] tx for recurrent infections -to f up [...] CRS team ---will request to front desk receptionist staff to schedule apt w me for [...] next visit. -Annual labs to be done. Marcie pappas 03/21/2023 Assessment & Plan (01/13/2025 7:37 PM EST): She has a small lesion on the left arm/deltoid area. She will take Valtrex x 3 days, refill sent to pharmacy. She will keep track of recurrences and start taking Valtrex within 24 hours of symptoms and follow-up with PCP, she may need to go back to prophylaxis. Assessment & Plan (08/21/2023 8:42 PM EDT): Pt w hx of herpetic mian from [facility] records. Had a positive viral culture of lesion on the finger for Herpes. - on chronic Valacyclovir 500 mg daily. This has aided in reducing the frequency of sx recurrence. Assessment & Plan (03/21/2023 8:26 PM EDT): Pt w hx of herpetic mian from [facility] records. Had a positive viral culture of [...] reliant. ?? PLAN: 1. Follow up with [facility]: Not recommended for follow-up 2. Patient goal is to engage in OP therapy once service is established 3. Behavioral Recommendations a. Patient will utilize coping skills b. Patient will reach out to [facility], if needed Assessment & Plan (03/21/2023 8:37 [...] Encounters Date Type Department Care Team Description 02/24/2025 11:20 AM EDT Office Visit [facility] [address] [place] [phone] Anny Yee MD Chronic vaginitis (Primary Dx); Family planning 02/17/2025 Refill [facility] [address] [place] [phone] Mary Narayan MD Herpes 02/02/[address] [address] Mignon King MD Results 01/29/2025 2:40 PM EDT Office Visit [facility] [address] [place] [phone] Throat pain (Primary Dx); Vaginal discharge 01/23/2025 Population Health Risk Score [facility] ([facility] Department [address] [place] [phone] Provider, Population Health Generic 01/13/2025 5:20 PM EST [facility] [address] [address] Mary Narayan MD Subacute maxillary sinusitis (Primary Dx); Herpetic mian; Sore throat; Low back pain, non-specific; Herpes 01/13/2025 Travel 01/13/[address] [address] Mignon King MD Nurse Triage 01/09/2025 Orders Only GENERIC EXTERNAL DATA DEPARTMENT Provider, Generic External Data 01/02/2025 Orders Only GENERIC EXTERNAL DATA DEPARTMENT Provider, Generic External Data 01/02/[address] [address] Mignon King MD Nurse Triage 12/31/2024 Orders Only GENERIC EXTERNAL DATA DEPARTMENT Provider, Generic External Data 11/27/2024 Travel from Last 3 Months Immunizations Name Administration [...] 3.2 oz) 02/24/2025 11:04 AM EDT Height 154.9 cm (5' 1 ) 01/13/2025 4:46 PM EST Body Mass Index 22.33 01/13/2025 4:46 PM EST Plan of Treatment Health Maintenance Due Date Last Done Comments Alcohol/Substance Use Screening 2014 Depression Screening 03/21/2024 03/21/2023, 03/21/20 23 COVID-19 Vaccine ( season) 2024 Influenza Vaccine (#1) 2024 SDOH Screening 12/14/2024 12/14/2023 Pap Smear 01/29/2025 01/30/2024, 01/30/2024 Family Planning (PISQ) 10/30/2025 10/30/2024 Tobacco Screening 01/13/2026 01/13/2025 Chlamydia and Gonorrhea Screening 01/29/2026 01/29/2025, 01/29/2025, 01/02/2025, Additional history exists DTaP/Tdap/Td Vaccines (8 - [...] Routine 02/24/2025 11:51 AM EDT Chronic vaginitis CHLAMYDIA/N. GONORRHOEAE RNA, TMA, THROAT Routine 01/29/2025 3:05 PM EDT Throat pain CHLAMYDIA/N. GONORRHOEAE RNA, TMA, UROGENITAL Routine 01/29/2025 3:05 PM EDT Vaginal discharge BACTERIAL VAGINOSIS PANEL Routine 01/29/2025 3:05 PM EDT Vaginal discharge POCT INFLUENZA B (ID NOW RAPID MOLECULAR) Routine 01/29/2025 2:50 PM EDT Throat pain POCT INFLUENZA A (ID NOW RAPID MOLECULAR) Routine 01/29/2025 2:50 PM EDT Throat pain POCT RAPID STREP A Routine 01/29/2025 2: 50 PM EDT Throat pain POCT RAPID COVID ANTIGEN Routine 01/29/2025 2:50 PM EDT Throat pain POCT URINALYSIS DIPSTICK Routine 01/13/2025 5:35 PM EST Low back pain, non-specific POCT INFLUENZA B (ID NOW RAPID MOLECULAR) Routine 01/13/2025 5:10 PM EST Sore throat POCT INFLUENZA A (ID NOW RAPID MOLECULAR) Routine 01/13/2025 5:10 PM EST Sore throat POC FRASER ID NOW STREP A Routine 01/13/2025 5:02 PM EST Sore throat POCT RAPID COVID ANTIGEN Routine 01/13/2025 5:00 PM EST Sore throat URINALYSIS WITH REFLEX MICROSCOPIC Routine 01/09/2025 1:00 AM EST HCG, QL, URINE Routine 01/09/2025 1:00 AM EST STREP A NUCLEIC ACID Routine 01/09/2025 12:45 AM EST BACTERIAL VAGINOSIS PANEL Routine 01/02/2025 9:47 PM [...] AUTO DIFFERENTIAL Routine 12/31/2024 9:28 PM EST HIV 1/2 ANTIGEN/ANTIBODY, FOURTH GENERATION W/RFL Routine 10/30/2024 10:59 AM EST Screening examination for venereal disease HEPATITIS C AB W/REFL TO HCV RNA, QN, PCR Routine 09/01/2024 10:15 AM EDT IMAGE-GUIDED PAP W/AGE BASED SCR,W/CT/NG/TRICH Routine 01/30/2024 10:56 AM EDT Screening examination for venereal disease Routine cervical smear from Last 3 Months or Most Recently Relevant to Health Maintenance Results * POCT urinalysis dipstick manually resulted (02/24/2025 12:00 PM EDT) Only the most recent of2 resultswithin the time period is included. Color, UA Light Yellow Clarity, UA Cloudy Glucose, UA Negative Bilirubin, UA Negative Ketones, UA Negative Spec Grav, UA 1.020 Blood, UA Negative Negative, None Detected pH, UA 6.5 Protein, UA Negative Urobilinogen, UA 0.2 Leukocytes, UA Negative Negative, Rare, Trace Nitrite, UA Negative Negative, None Detected Appearance, UA ligh yellow QC Media Lot # [id number] Lot# Expiration Date [id number] Urine 02/24/2025 12:0 0 PM EDT Anny Yee MD POINT OF CARE TEST ENTER/E DIT ORDERABLES Final Result * POCT , urine manually resulted (02/24/2025 11:51 AM EDT) Preg Test, Ur Negative Negative, Indeterminate, None Detected, Invalid, Specimen unsatisfactory for evaluation, Weakly Positive QC Media Lot # [id number] Lot# Expiration Date [id number] Urine 02/24/2025 11:5 1 AM EDT Anny Yee MD POINT OF CARE TEST ENTER/E DIT ORDERABLES Final Result * Bacterial Vaginosis Panel (01/29/2025 3:05 PM EDT) Only the most recent of2 resultswithin the time period is included. TRICHOMONAS VAGINALIS DETECTION BY PCR NOT DETECTED Not Detect [facility] BACTERIAL VAGINOSIS DETECTION BY PCR NEGATIVE Negative [facility] Comment:The BV organism targ ets [...] DETECTION BY PCR NOT DETECTED Not Detect [facility] Chela glab krusei PCR NOT DETECTED Not Detect [facility] Swab Vaginal structure / Unknown 01/29/2025 3:05 PM EDT 01/30/2025 7:43 AM EDT us Evelyne Smith DO LAB MICROBIOLOGY - GENERAL O RDERABLES Final Result [facility] [address] [place] [phone] * Chlamydia/N. Gonorrhoeae RNA, TMA, Throat (01/29/2025 3:05 PM EDT) C. Trachomatis RNA TMA, Throat NOT DETECTED [facility] N. gonorrhoeae RNA TMA, Throat NOT DETECTED [facility] Comment:REFERENCE RANGE: NOT DETECTEDMethodology: Newspaper Reporter Mediated Amplification (TMA) to detect RNA.The analytical performance characteristics of this assayhave been determined by [employer]. The modificationshave not been cleared or approved by the FDA. This assay hasbeen validated pursuant to the CLIA regulations and is usedfor clinical purposes.For additional information, please refer tohttps://education.[employer]/faq/HZR432(This link is being provided for informational/educationalpurposes only.)THIS TEST WAS PERFORMED AT:[employer] [id number] [address] [id number] HOFFMANN MD,PHD,JL Swab Structure of anterior portion of neck / Unknown 01/29/2025 3:05 PM EDT 01/30/2025 7:43 AM EDT us Evelyne Smith DO LAB MICROBIOLOGY - GENERAL O RDERABLES Final Result [facility] [address] [place] [address] [phone] * Chlamydia/N. Gonorrhoeae RNA, TMA, Urogenitial (01/29/2025 3:05 PM EDT) Only the most recent of2 resultswithin the time period is included. CT PCR NOT DETECTED Not Detect. [facility] Comment:A not detected test result [...] psychologicalconsequences. NG PCR NOT DETECTED Not Detect. [facility] Comment:A not detected test result [...] lead to adverse medical, social or psychologicalconsequences. Swab (Vaginal Swab) 01/29/2025 3:05 PM EDT 01/30/2025 7:43 AM EDT Narrative [facility] - 01/30/2025 11:23 AM EDT Vaginal Evelyne Smith DO LAB MICROBIOLOGY - GENERAL O RDERABLES Final Result Performing Organization Address [facility]/ZIP Co de Phone Number [facility] [address] [place] [phone] * Influenza B (ID NOW Rapid Molecular) (01/29/2025 2:50 PM EDT) Only the most recent of2 resultswithin the time period is included. Influenza B Negative Negative, Indeterminate [facility] Swab 01/29/2025 2:50 PM EDT Evelyne Smith DO POINT OF CARE TEST ENTER/BABAR T ORDERABLES Final Result Performing Organization Address [facility] Co de Phone Number [facility] [address] [place] [phone] * Influenza A (ID NOW Rapid Molecular) (01/29/2025 2:50 PM EDT) Only the most recent of2 resultswithin the time period is included. Influenza A Negative Negative, Indeterminate [facility] Swab 01/29/2025 2:50 PM EDT Evelyne Smith DO POINT OF CARE TEST ENTER/BABAR T ORDERABLES Final Result Performing Organization Address [facility] Co de Phone Number [facility] [address] [place] [phone] * POCT Rapid COVID Ag (01/29/2025 2:50 PM EDT) Only the most recent of2 resultswithin the time period is included. Rapid COVID Ag Negative [facility] Swab 01/29/2025 2:50 PM EDT Evelyne Smith DO POINT OF CARE TEST ENTER/BABAR T ORDERABLES Final Result Performing Organization Address [facility] Co de Phone Number [facility] [address] [place] [phone] * POCT rapid strep A manually resulted (01/29/2025 2:50 PM EDT) Rapid Strep A Screen Negative Negative, None Detected [facility] Swab 01/29/2025 2:50 PM EDT Evelyne Smith DO POINT OF CARE TEST ENTER/BABAR T ORDERABLES Final Result Performing Organization Address [facility] Phone Number [facility] [address] [place] [phone] * POCT Rapid Strep A FRASER ID NOW (01/13/2025 5:02 PM EST) [facility] Rapid Strep A Screen Negative Negative, None Detected QC Media Lot # [id number] Lot# Expiration Date Swab 01/13/2025 5:02 PM EST Mary Narayan MD POINT OF CARE TEST ENTER /EDIT ORDERABLES Final Result * HCG, Qualitative, Urine (01/09/2025 1:00 AM EST) [facility] Urine NEGATIVE NEGATIVE [facility] Comment:This test was develo ped to detect early . Falsenegative results may occur after the 5th - 7th week ofpregnancy when using this test method. If clinicallyindicated, consider a serum hCG. 01/09/2025 1:00 AM EST 01/09/2025 1:06 AM EST Generic External Data Provider LAB URINE ORDERAB LES Final Result Performing Organization Address [facility] Co de Phone Number [facility] [address] [place] [address] [phone] * Urinalysis w/reflex microscopic (01/09/2025 1:00 AM EST) Only the most recent of2 resultswithin the time period is included. Color Urine Yellow [facility] Appearance Urine Turbid [facility] PH 7.0 5.0 - 9.0 [facility] Glucose Urine UA Negative Negative mg/dL [facility] Urine Blood Negative Negative [facility] Specific [place] - Urine 1.020 1.005 - 1.025 [facility] Urine Protein Negative Neg-Trace mg/dL [facility] Urine Ketones Negative Negative mg/dL [facility] Nitrite Urine Negative Negative [facility] Leukocyte Esterase Urine Negative Negative [facility] 01/09/2025 1:00 AM EST 01/09/2025 1:06 AM EST Narrative [facility] - 01/09/2025 2:10 AM EST [id number], Clean Catch us Generic External Data Provider LAB URINE ORDERAB LES Final Result [facility] [address] [place] [phone] * Strep A Nucleic Acid (01/09/2025 12:45 AM EST) [employer] SERIAL# [id number] [facility] Strep A Nucleic Acid Negative Negative [facility] Comment:All test results mus t be correlated with clinical findings.This test has not been evaluated for monitoring treatment ofinfection.Additional follow-up testing using the culture method isrequired if the result is negative and clinical symptomspersist, or in the event of an acute rheumatic feveroutbreak. 01/09/2025 12:4 5 AM EST 01/09/2025 12:47 AM EST us Generic External Data Provider LAB MICROBIOLOGY - GENERAL ORDERABLES Final Result [facility] [address] [place] [address] [phone] * Wet prep, genital (01/02/2025 9:47 PM EST) Vaginal Fluid Vaginal structure / Unknown 01/02/2025 9:47 PM EST 01/02/2025 9:51 PM EST Comment:Vaginal Narrative [facility] - 01/02/2025 9:58 PM EST Trichomonas Prep Direct Microscopic Exam Trichomonas Prep No trichomonads or yeast seen Specimen Source: Vaginal us Generic External Data Provider LAB MICROBIOLOGY - GENERAL ORDERABLES Final Result Performing Organization Address [facility] Co de Phone Number [facility] [address] [place] [phone] * (ABNORMAL) CBC auto differential (01/02/2025 2:34 PM EST) Only the most recent of2 resultswithin the time period is included. White Blood Count 5.9 4.8 - 10.8 X10*3/uL [facility] Red Blood Count 4.82 4.20 - 5.50 X10*6/uL [facility] Hemoglobin 13.4 12.0 - 16.0 g/dl [facility] Hematocrit 41.6 37.0 - 47.0 % [facility] Mean Corpuscular Volume 86.3 80.0 - 98.0 fL [facility] Mean Corpuscular Hemoglobin 27.8 27.0 - 33.0 pg [facility] Mean Corpuscular HGB Conc 32.2 31.0 - 35.0 g/dl [facility] Red Cell Distribution Width 11.9 11.0 - 16.0 % [facility] Platelet Count 248 160 - 400 X10*3/uL [facility] Mean Platelet Volume 9.2(L) 9.4 - 12.3 fL [facility] Neutrophils Percent Auto 68.8 45 - 73 % [facility] Imm Gran Pct Auto 0.2 0.0 - 0.4 % [facility] Lymphocytes Percent Auto 24.4 20 - 40 % [facility] Monocytes Percent Auto 5.8 2 - 11 % [facility] Eosinophils Percent Auto 0.5 0 - 4 % [facility] Basophils Percent Auto 0.3 0 - 2 % [facility] NRBC Pct Auto 0.0 0.0 - 0.2 /100WBC [facility] Neutrophils Absolute Auto 4.1 2.0 - 8.3 x10*3/uL [facility] Imm Gran Abs Auto 0.01 0.00 - 0.03 X10*3/uL [facility] Lymphocytes Absolute Auto 1.4 1.2 - 4.9 X10*3/uL [facility] Monocytes Absolute Auto 0.3 0.1 - 1.2 X10*3/uL [facility] Eosinophils Absolute Auto 0.0 0.0 - 0.4 X10*3/uL [facility] Basophils Absolute Auto 0.0 0.0 - 0.2 X10*3/uL [facility] NRBC Abs Auto 0.000 0.0 - 0.012 X10*3/uL [facility] 01/02/2025 2:34 PM EST 01/02/2025 2:37 PM EST us Generic External Data Provider LAB BLOOD ORDERAB LES Final Result [facility] [address] [place] [phone] * hCG, Total, Quantitative (01/02/2025 2:34 PM EST) Only the most recent of2 resultswithin the time period is included. HCG Quantitative <2 mIU/mL [facility] Comment:Weeks post LMP Appro ximate hCG(Last Menstrual Period) Range (mIU/ml)3 - 4 weeks 9 - 1304 - 5 weeks 75 - 2,6005 - 6 weeks 850 - 20,8006 - 7 weeks 4000 - 100,2007 - 12 weeks 11,500 - 289,14514 - 16 weeks 18,300 - 137,67295 - 29 weeks (2nd trimester) 1,400 - 53,06831 - 41 weeks (3rd trimester) 940 - 60,000The Fraser B- hCG assay is used for the early detection ofpregnancy; it cannot be used to diagnose any conditionunrelated to . If a B-hCG level is not supportedby the clinical evidence, results should be confirmed by analternative method (qualitative urine hCG, for example). 01/02/2025 2:34 PM EST 01/02/2025 2:37 PM EST Generic External Data Provider LAB BLOOD ORDERAB LES Final Result Performing Organization Address City/[facility]/ZIP Co de Phone Number [facility] [address] [place] [phone] * Magnesium (01/02/2025 2:34 PM EST) Pathologist [facility] Magnesium 2.2 1.6 - 2.6 mg/dL [facility] 01/02/2025 2:34 PM EST 01/02/2025 2:37 PM EST Generic External Data Provider LAB BLOOD ORDERAB LES Final Result Performing Organization Address City/[facility]/ZIP Co de Phone Number [facility] [address] [place] [phone] * (ABNORMAL) Comprehensive Metabolic Panel (01/02/2025 2:34 PM EST) Only the most recent of2 resultswithin the time period is included. Sodium 138 135 - 145 mmol/L [facility] Potassium 3.9 3.3 - 5.1 mmol/L [facility] Chloride 105 96 - 108 mmol/L [facility] Carbon Dioxide 27 22 - 29 mmol/L [facility] Anion Gap 10(L) 12 - 20 [facility] Urea Nitrogen (BUN) 15 9 - 16 mg/dL [facility] Creatinine, Serum 1.03 0.5 - 1.4 mg/dL [facility] Creatinine Clr Calc Pharmacy 64.6 [facility] Comment:Provided height and weight: 154.94 cm,50.349 kg.eGFR (calculated from the MDRD study equation) and eCrCl(calculated from the Cockcroft-Gault equation) are based ondifferent parameters and may not yield comparable results.If eCrCl result is absurd, please check patient'sheight/weight. Estimated Glomerular Filt Rate >60 [facility] Comment:Chronic Kidney Disea se: Estimated GFR < 60 mL/min/[id number] Kidney Disease: Estimated GFR < 15 mL/min/1.73m2 Glucose 97 60 - 115 mg/dL [facility] Calcium 9.7 8.4 - 10.2 mg/dL [facility] Bilirubin, Total 0.3 0.0 - 1.0 mg/dL [facility] Aspartate Amino Transferase 23 5 - 31 U/L [facility] Alanine Aminotransferase 19 0 - 31 U/L [facility] Total Protein 8.6(H) 6.5 - 8.0 g/dL [facility] Albumin Level 4.8 3.5 - 5.0 g/dL [facility] Alkaline Phosphatase 58 39 - 117 U/L [facility] 01/02/2025 2:34 PM EST 01/02/2025 2:37 PM EST us Generic External Data Provider LAB BLOOD ORDERAB LES Final Result Performing Organization Address City/State/[facility] Co de Phone Number [facility] [address] [place] [phone] * XR KUB and Upright 2 Views (01/02/2025 2:17 PM EST) Anatomical Region Laterality Modality Radiographic Marybeth ging 01/02/2025 2:17 PM EST Narrative 01/02/2025 3:04 PM EST ? [facility] ?[address] ?[place] [address] ?XRay Report ? Signed ? Patient: Garcia,Lolly L ?MR#: [id number] ?? [id number] ? : 2000 ?Acct:[id number] ? Age/Sex: 24 / F ?ADM Date: 01/02/25 ? Loc: HO.ED ? Attending Dr: ? Ordering Physician: Ramona Tejeda ?? Date of Service: 01/02/25 ?? Procedure(s): XR KUB ?? Accession Number(s): [id number] ? cc: Ramona Tejeda; Mignon King MD [...] DD/ 1417 ? TD/TT: 01/02/25 1448 ? Card Assembler: ? Procedure Note Brina Castillo - 01/02/2025 [place] [id number] XRay Report Signed Patient: Lolly Garcia LMR#: [id number] : 2000Acct:[id number] Age/Sex: 24 / FADM Date: 01/02/25 Loc: HO.ED Attending Dr: Ordering Physician: Ramona Tejeda Date of Service: 01/02/25 Procedure(s): XR KUB Accession Number(s): [id number] cc: Ramona Tejeda; Mignon King MD EXAMINATION: XR ABDOMEN KUB CLINICAL INDICATION: pain COMPARISON: None available. TECHNIQUE: AP view of the abdomen. FINDINGS: The bowel gas pattern is normal with no evidence of ileus or obstruction. No unusual soft tissue calcifications are noted. The bones are unremarkable. XR/XR KUB IMPRESSION: Unremarkable examination. Electronically signed by: Aung Farnsworth MD 01/02/2025 03:01 PM EST Dictated By: Aung Farnsworth MD Signed By: <Electronically signed by Aung Farnsworth MD in OV> 01/02/25 1501 DD/ 1417 TD/TT: 01/02/25 1448 Card Assembler: [facility] External Provider IMG XR PROCEDURES Final Result * Prothrombin Time-INR (12/31/2024 9:28 PM EST) Prothrombin Time 12.1 10.9 - 12.4 SEC [facility] INTERNATIONAL NORM RATIO 1.0 0.9 - 1.1 [facility] Comment:INTERNATIONAL NORMAL IZED RATIO (INR) [...] Provider LAB BLOOD ORDERAB LES Final Result [facility] [address] [place] [phone] * Lipase (12/31/2024 9:28 PM EST) Lipase 18 8 - 78 U/L [facility] 12/31/2024 9:28 PM EST 12/31/2024 9:35 PM EST Generic External Data Provider LAB BLOOD ORDERAB LES Final Result Performing Organization Address [facility] Co de Phone Number [facility] [address] [place] [phone] * HIV-1/2 Antigen and Antibodies, Fourth Generation, with Reflexes (10/30/2024 10:59 AM EST) HIV AB/AG Nonreactive Nonreactive [facility] Comment:HIV-1 p24 Ag and/or HIV-1/HIV-2 Ab not detected.A test result that is nonreactive does not exclude thepossibility of exposure to or infection with HIV-1 and/orHIV-2. Nonreactive results in this assay for individualswith prior exposure to HIV-1 and/or HIV-2 may be due toantigen and antibody levels that are below the limit ofdetection of this assay.The Spinal [facility] HIV Ag/Ab Combo assay result andsupplemental assay results should be interpreted inconjunction with the patient's clinical presentation,history and other laboratory results. If the results areinconsistent with clinical evidence, additional testing issuggested to confirm the result. Blood Venous blood specimen / Unknown 10/30/2024 10:59 AM EST 10/30/2024 1:16 PM EST us Ashley BOLAÑOS LAB BLOOD ORDERABLES Carol l Result Performing Organization Address [facility] Co de Phone Number [facility] [address] [place] [phone] * Hepatitis C Antibody with Reflex to HCV, RNA, Quantitative, Real-Time PCR (09/01/2024 10:15 AM EDT) Hepatitis C Antibody Nonreactive Nonreactive [facility] Comment:Antibodies to HCV no t detected; does not exclude early acuteHCV infection. 09/01/2024 10:1 5 AM EDT 09/01/2024 12:05 PM EDT us Mignon Hays MD LAB BLOOD ORDERAB LES Final Result Performing Organization Address [facility] Co de Phone Number [facility] [address] [place], [place] [phone] * Pap with NG,CT, Trich (01/30/2024 10:56 AM EDT) Trichomonas (NAAT) NOT DETECTED NOT DETECTED [facility] Comment:The analytical perfo rmance characteristics of thisassay have been determined by [employer]. Themodifications have not been cleared or approved bythe FDA. This assay has been validated pursuant to theCLIA regulations and is used for clinical purposes.For additional information, please refer tohttp://education.[employer]/faq/Trichomonastma(This link is being provided for information/educational purposes only.)THIS TEST WAS PERFORMED AT:[facility] [place] [id number] SIDDIQI MD CTNG Ref Lab NOT DETECTED NOT DETECTED [facility] NG Ref Lab NOT DETECTED NOT DETECTED [facility] Pap Vial Vaginal structure / Unknown 01/30/2024 10:56 AM EDT 02/04/2024 2:19 PM EDT Narrative [facility] - 02/06/2024 1:53 PM EDT Collection Date: [id number]: [id number] by: TANI Dietz: Vagina Ashley BOLAÑOS LAB CYTOLOGY ORDERABLES F inal Result Performing Organization Address [facility]/ZIP Co de Phone Number [facility] [address] [place], [place] [phone] from Last 3 Months or Most Recently Relevant to Health Maintenance Insurance [employer] Care Teams Biometric Screener Relationship Specialty Start Date End Date Mignon King MD [address] [place] [address] PCP - General Internal Medicine 08/31/23
--- OUTSIDE RECORDS SUMMARY | 2025-02-24 19:10 | XMS_ITS | Encounter Summary ---
Author Organization [employer] Address [address] [place] [address] Care Team Providers Care Broacher Name Role Phone Mignon King MD Primary Care Pro vider Reason for Visit * Reason Comments Med Refill Encounter Details Date Type Department Care Team ([facility] st Contact Info) Description 05/16/2024 Refill [facility] [address] [place] [address] Mignon King MD [address] [place] [address] On pre-exposure prophylaxis for HIV (Primary Dx) [...] documented as of this encounter Care Teams Broacher Relationship Specialty Start Date End Date Mignon King MD [address] [place] [phone] PCP - General Internal Medicine 08/31/23 documented as of this encounter
--- OUTSIDE RECORDS SUMMARY | 2025-02-24 19:10 | XMS_ITS | Encounter Summary ---
Author Organization [email or web address] [facility] Address [address] [place] [address] [address] [place] [address] Care Team Providers Care Head Wood Grinder Name Role Phone Clair Johnson Primary Care Provider [phone] Mignon King MD Primary Care Pro vider Encounter Details Date Type Department Care Team (Late st Contact Info) Description 04/07/2023 Orders Only [facility] [address] [place] [phone] Clair Johnson FNP [address] [place] [address] Social History Tobacco Use Types Packs/Day Years [...] documented as of this encounter Care Teams Head Wood Grinder Relationship Specialty Start Date End Date Clair Johnson FNP [address] [place] [address] PCP - General Family Medicine 08/22/22 08/30/23 Mignon King MD [address] [place] [address] PCP - General Internal Medicine 08/31/23 documented as of this encounter
--- OUTSIDE RECORDS SUMMARY | 2025-02-24 19:10 | XMS_ITS | Encounter Summary ---
Author Organization [employer] Address [address] [place] [address] Care Team Providers Care Coke Production Heater Name Role Phone Mignon King MD Primary Care Pro vider Reason for Visit * Reason Onset Date Comments Call Back Request 10/30/2023 Encounter Details Date Type Department Care Team ([facility] st Contact Info) Description 10/30/2023 Telephone [facility] [address] [place] [address] Mignon King MD [address] [place] [address] Call Back Request Social History Tobacco Use [...] of the medication and denied information to appeals writer. documented in this encounter Plan of Treatment Not on file documented as of this encounter Visit Diagnoses Not on filedocumented in this encounter Additional Health Concerns Assessment Noted Time PHQ-9 Depression Total Score: 4 03/21/20 2:29 PM EDT documented as of this encounter Care Teams Coke Production Heater Relationship Specialty Start Date End Date Mignon King MD [address] [place] [phone] PCP - General Internal Medicine 08/31/23 documented as of this encounter
[2025-02-25 10:00] LABS: Bacterial Vaginosis PCR NEGATIVE (Negative); Candida Group PCR NOT DETECTED (Not Detect); Candida glab krusei PCR DETECTED (Not Detect); Trichomonas vaginalis PCR NOT DETECTED (Not Detect)
== END 2025-02-24 18:35 | disposition home or self-care (01) ==
LOC: HO.LNP 18:34
PROVIDERS: Visit Provider Family Medicine
DX: N76.1 Subacute and chronic vaginitis (principal)
CPT/HCPCS: 81515

== ENCOUNTER 2025-04-03 12:12 | Outpatient (REF) | payer MEDICAID, SELFPAY ==
--- OUTSIDE RECORDS SUMMARY | 2025-04-03 12:14 | XMS_ITS | Encounter Summary ---
Author Organization [employer] Address [address] [place] [address] [address] [place] [address] Care Team Providers Care Paramedic Rn Name Role Phone Clair Johnson Primary Care Provider [phone] Mignon King MD Primary Care Pro vider Encounter Details Date Type Department Care Team (Late Contact Info) Description 01/15/2023 Orders Only [facility] [address] [place] [phone] Clair Johnson FNP [address] [place] [address] Bacterial vaginitis (Primary Dx) Social History Tobacco [...] as of this encounter Plan of Treatment Upcoming Encounters Date Type Department Care Team (Late st Contact Info) Description 04/29/2025 2:45 PM EDT Office Visit [facility] [address] [place] [phone] Archana Iraheta FNP [address] [place] [address] documented as of this encounter Visit Diagnoses Diagnosis Bacterial vaginitis- Primary Unspecified vaginitis and vulvovaginitis documented in this encounter Care Teams Paramedic Rn Relationship Specialty Start Date End Date Clair Johnson FNP [address] [place] [address] PCP - General Family Medicine 08/22/22 08/30/23 Mignon King MD [address] [place] [address] PCP - General Internal Medicine 08/31/23 documented as of this encounter
[2025-04-03 16:44] LABS: Bacterial Vaginosis PCR POSITIVE (Negative); Candida Group PCR NOT DETECTED (Not Detect); Candida glab krusei PCR NOT DETECTED (Not Detect); Trichomonas vaginalis PCR NOT DETECTED (Not Detect)
[2025-04-03 17:13] LABS: CT PCR NOT DETECTED (Not Detect.); NG PCR NOT DETECTED (Not Detect.)
[2025-04-06 07:53] LABS: Syphilis Screen Nonreactive (Nonreactive)
[2025-04-06 08:24] LABS: HBS Num1 66.42 mIU/mL (0-7.99); HBc Num1 0.07 S/CO (0.00-0.79); HBsAGNum1 0.31 S/CO (0.00-0.99); HIV AB/AG Nonreactive (Nonreactive); HIV Num 1 0.06 S/CO (0.00-0.99); Hepatitis B Core Antibody Nonreactive (Nonreactive); Hepatitis B Surface Antigen Negative (Negative); ~HepC Num1 0.13 S/CO (0.00-0.79); ~Hepatitis B Surface Antibody REACTIVE (Nonreactive); ~Hepatitis C Antibody Nonreactive (Nonreactive)
== END 2025-04-03 12:13 | disposition home or self-care (01) ==
LOC: HO.HHCL 12:12
PROVIDERS: Visit Provider Nurse Practitioner
DX: Z20.2 Contact with and (suspected) exposure to infections with a predominantly sexual mode of transmission (principal); Z11.3 Encounter for screening for infections with a predominantly sexual mode of transmission
CPT/HCPCS: 36415; 81515; 86704; 86706; 86780; 86803; 87340; 87389; 87491; 87591

== ENCOUNTER 2025-04-22 11:24 | Outpatient (REF) | payer MEDICAID, SELFPAY ==
--- OUTSIDE RECORDS SUMMARY | 2025-04-23 13:32 | XMS_ITS | Encounter Summary ---
Author Organization [employer] Address [address] [place] [address] [address] [place] [address] Care Team Providers Care Pain Medicine Physician Name Role Phone Clair Johnson Primary Care Provider [phone] Mignon King MD Primary Care Pro vider Encounter Details Date Type Department Care Team (Late Contact Info) Description 01/15/2023 Orders Only [facility] [address] [place] [phone] Clair Johnson FNP [address] [place] [address] Bacterial vaginitis (Primary Dx) Social History Tobacco [...] Description 04/29/2025 2:45 PM EDT Office Visit [facility] [address] [place] [phone] Archana Iraheta FNP [address] [place] [address] documented as of this encounter Visit Diagnoses Diagnosis Bacterial vaginitis- Primary Unspecified vaginitis and vulvovaginitis documented in this encounter Care Teams Pain Medicine Physician Relationship Specialty Start Date End Date Clair Johnson FNP [address] [place] [address] PCP - General Family Medicine 08/22/22 08/30/23 Mignon King MD [address] [place] [address] PCP - General Internal Medicine 08/31/23 documented as of this encounter
[2025-04-23 13:46] LABS: Bacterial Vaginosis PCR NEGATIVE (Negative); Candida Group PCR DETECTED (Not Detect); Candida glab krusei PCR NOT DETECTED (Not Detect); Trichomonas vaginalis PCR NOT DETECTED (Not Detect)
[2025-04-24 17:18] LABS: C. Trachomatis RNA TMA, Throat NOT DETECTED (NOT DETECTED); N. gonorrhoeae RNA TMA, Throat NOT DETECTED (NOT DETECTED)
== END 2025-04-22 11:25 | disposition home or self-care (01) ==
LOC: HO.HHCLNP 11:24
DX: N76.0 Acute vaginitis (principal); B96.89 Other specified bacterial agents as the cause of diseases classified elsewhere
CPT/HCPCS: 81515; 87491; 87591

== ENCOUNTER 2025-05-13 15:00 | Outpatient (REF) | payer MEDICAID, SELFPAY ==
--- OUTSIDE RECORDS SUMMARY | 2025-05-13 15:24 | XMS_ITS | Data Portability ---
Author Organization [employer] [email or web address] [id number] Address [address] [place] [phone] Assessment No assessment recorded. Plan of Treatment [...] Out Template NON DOT completed Aziza I[facility] 08/13/2024 14:23:57 Imaging Results None recorded. [...] SNOMED-CT Code Diagnosis ICD10 Code Diagnosis Note [id number] [place] [id number] [phone] 08/13/2024 13:37:24 08/13/2024 14:24:45 History and physical examination, occupation [id number] Z02.1 Health Concerns Section Related Observation LastModified by Organization Detai ls LastModified Time None Recorded Concern Status LastModified by Organization Details LastModified Time None Recorded Advance Directives Directive None Recorded Payers Insurance Date Sequence Insurance Name Policy Number Policy Trujillo Covered Member ID Trujillo Member ID Guarantor Name 08/13/2024 OC-ESCREEN [employer] n [[id number]] OPUSING Lolly Garcia OBGyn Episode No OBEpisode recorded.
--- OUTSIDE RECORDS SUMMARY | 2025-05-13 15:24 | XMS_ITS | Encounter Summary ---
Author Organization [employer] Address [address] [place] [address] [address] [place] [address] Care Team Providers Care Safety Technician Name Role Phone Clair Johnson Primary Care Provider [phone] Mignon King MD Primary Care Pro vider Encounter Details Date Type Department Care Team (Late st Contact Info) Description 01/15/2023 Orders Only [facility] [address] [place] [address] Clair Johnson FNP [address] [place] [address] Bacterial vaginitis (Primary Dx) Social History Tobacco [...] vulvovaginitis documented in this encounter Care Teams Safety Technician Relationship Specialty Start Date End Date Clair Johnson FNP [address] [place] [address] PCP - General Family Medicine 08/22/22 08/30/23 Mignon King MD [address] [place] [address] PCP - General Internal Medicine 08/31/23 documented as of this encounter
[2025-05-13 20:48] LABS: Bacterial Vaginosis PCR NEGATIVE (Negative); Candida Group PCR DETECTED (Not Detect); Candida glab krusei PCR NOT DETECTED (Not Detect); Trichomonas vaginalis PCR NOT DETECTED (Not Detect)
[2025-05-13 22:38] LABS: CT PCR NOT DETECTED (Not Detect.); NG PCR NOT DETECTED (Not Detect.)
[2025-05-14 08:32] LABS: HIV Num 1 0.05 S/CO (0.00-0.99); ~HepC Num1 0.20 S/CO (0.00-0.79); ~Hepatitis C Antibody Nonreactive (Nonreactive)
== END 2025-05-13 15:01 | disposition home or self-care (01) ==
LOC: HO.HHCL 15:00
PROVIDERS: PCP Student in an Organized Health Care Education/Training Program; Visit Provider Internal Medicine Geriatric Medicine
DX: N76.0 Acute vaginitis (principal)
CPT/HCPCS: 36415; 81515; 86592; 86803; 87389; 87491; 87591

== ENCOUNTER 2025-08-21 18:18 | Outpatient (REF) | payer MEDICAID, SELFPAY ==
[2025-08-22 03:08] LABS: CT PCR Urine NOT DETECTED (Not Detect.); NG PCR Urine NOT DETECTED (Not Detect.)
== END 2025-08-21 18:19 | disposition home or self-care (01) ==
LOC: HO.HHCLNP 18:18
PROVIDERS: Visit Provider Internal Medicine Geriatric Medicine
DX: R10.24 Suprapubic pain (principal); Z20.2 Contact with and (suspected) exposure to infections with a predominantly sexual mode of transmission
CPT/HCPCS: 87491; 87591